=== PATIENT | female | born 1945 | race American Indian/Alaskan Native ===

== ENCOUNTER 2018-07-22 17:39 | Inpatient (IN) | payer MEDICARE ==
[2018-07-22] MEDS ORDERED: ATROVENT IH ONE ×2 (17:42→17:47)
[2018-07-22] MEDS ORDERED: LEVAQUIN 500MG/100ML 500 MG/100 ML BAG IV ONE (17:43)
[2018-07-22] MEDS ORDERED: XOPENEX IH ONE (17:47)
[2018-07-22] MEDS ORDERED: LEVALBUTEROL IH ONE (17:47)
--- NOTE | 2018-07-22 17:48 | Emergency Department Report ---
ED Shortness of Breath HPI - General Stated Complaint: LAURI Time Seen by Provider: 07/22/18 17:41 - History of Present Illness Initial Comments: Patient is 72 years old female with history of COPD and asthma. Patient presented to the ER via EMS in acute respiratory distress. EMS stated that patient initial oxygen saturation was 80% on room air improved to 96% on Venturi mask. Patient received albuterol 7.5 mg, Solu-Medrol 125 mg and magnesium sulfate 2 g by EMS. Upon arrival to the ER patient oxygen saturation is 96% on a Venturi mask with moderate tachypnea and respiratory distress. Patient received Xopenex 2.5 mg, Atrovent 0.5 mg and started on BiPAP. Patient stated that she was treated for pneumonia 2 weeks ago. MD Complaint: shortness of breath, cough Consistency: constant Improves With: oxygen, bronchodilators Known History Of: COPD, asthma Context: recent URI - Related Data Home Medications Medication Instructions Recorded Confirmed Last Taken ALBUTEROL NEB's [Proventil 0.083% 1 vial Q6HR PRN 07/24/18 07/24/18 Unknown NEBS] Allopurinol [Zyloprim] 1 tab PO DAILY 07/24/18 07/24/18 Unknown AtorvaSTATin [Lipitor] 1 tab PO HS 07/24/18 07/24/18 Unknown Breo Ellipta 200-25 Mcg INH 1 mcg INHALATION DAILY 07/24/18 07/24/18 Unknown Folic Acid [Folvite] 1 tab PO DAILY 07/24/18 07/24/18 Unknown Gabapentin [Neurontin] 600 mg PO BID 07/24/18 07/24/18 Unknown ISOSORBIDE MONOnitrate [Imdur ER] 30 mg PO DAILY 07/24/18 07/24/18 Unknown Insulin NPH/Regular [NovoLIN 70/30] 22 units SQ QAM 07/24/18 07/24/18 Unknown Insulin NPH/Regular [NovoLIN 70/30] 30 units SQ HS 07/24/18 07/24/18 Unknown Ipratropium [place] 0.02 inhalation Q6HR PRN 07/24/18 07/24/18 Unknown Lispro Insulin [HumaLOG] 10 unit SQ AC 07/24/18 07/24/18 Unknown Meloxicam [Mobic] 15 mg PO DAILY 07/24/18 07/24/18 Unknown Omeprazole 40 mg PO DAILY 07/24/18 07/24/18 Unknown Torsemide [Demadex] 1 tab PO DAILY 07/24/18 07/24/18 Unknown amLODIPine [Norvasc] 1 tab PO DAILY 07/24/18 07/24/18 Unknown Allergies Allergy/AdvReac Type Severity Reaction Status Date / Time aspirin Allergy Unknown Verified 01/30/13 11:11 Penicillins Allergy Swelling Verified 01/30/13 11:11 ED Review of Systems ROS: Stated complaint: LAURI Other details as noted in HPI Comment: All other systems reviewed and negative Constitutional: denies: chills, fever Respiratory: cough, orthopnea, shortness of breath, SOB with exertion, SOB at rest, wheezing Cardiovascular: denies: chest pain Gastrointestinal: denies: abdominal pain, nausea, vomiting Musculoskeletal: denies: back pain ED Past Medical Hx - Past Medical History Hx Hypertension: Yes Hx Diabetes: Yes Hx GERD: Yes Hx Arthritis: Yes Hx Asthma: Yes Hx COPD: Yes Additional medical history: osteoporosis. high cholesterol - Surgical History Additional Surgical History: cataracts removed. ectopic x 2 - Social History Smoking Status: Former Smoker - Medications Home Medications: Home Medications Medication Instructions Recorded Confirmed Last Taken Type ALBUTEROL NEB's [Proventil 0.083% 1 vial Q6HR PRN 07/24/18 07/24/18 Unknown History NEBS] Allopurinol [Zyloprim] 1 tab PO DAILY 07/24/18 07/24/18 Unknown History AtorvaSTATin [Lipitor] 1 tab PO HS 07/24/18 07/24/18 Unknown History Breo Ellipta 200-25 Mcg INH 1 mcg INHALATION DAILY 07/24/18 07/24/18 Unknown History Folic Acid [Folvite] 1 tab PO DAILY 07/24/18 07/24/18 Unknown History Gabapentin [Neurontin] 600 mg PO BID 07/24/18 07/24/18 Unknown History ISOSORBIDE MONOnitrate [Imdur ER] 30 mg PO DAILY 07/24/18 07/24/18 Unknown History Insulin NPH/Regular [NovoLIN 70/30] 22 units SQ QAM 07/24/18 07/24/18 Unknown History Insulin NPH/Regular [NovoLIN 70/30] 30 units SQ HS 07/24/18 07/24/18 Unknown History Ipratropium [place] 0.02 inhalation Q6HR PRN 07/24/18 07/24/18 Unknown History Lispro Insulin [HumaLOG] 10 unit SQ AC 07/24/18 07/24/18 Unknown History Meloxicam [Mobic] 15 mg PO DAILY 07/24/18 07/24/18 Unknown History Omeprazole 40 mg PO DAILY 07/24/18 07/24/18 Unknown History Torsemide [Demadex] 1 tab PO DAILY 07/24/18 07/24/18 Unknown History amLODIPine [Norvasc] 1 tab PO DAILY 07/24/18 07/24/18 Unknown History ED Physical Exam - General General appearance: alert, in distress - Head Head exam: Present: atraumatic, normocephalic, normal inspection - Eye Eye exam: Present: normal appearance, PERRL - ENT ENT exam: Present: normal exam, normal orophraynx, mucous membranes moist - Neck Neck exam: Present: normal inspection, full ROM. Absent: tenderness, meningismus, lymphadenopathy, thyromegaly - Respiratory Respiratory exam: Present: respiratory distress, wheezes, rales, rhonchi, decreased breath sounds, prolonged expiratory. Absent: stridor, accessory muscle use - Cardiovascular Cardiovascular Exam: Present: regular rate, normal rhythm, normal heart sounds - GI/Abdominal GI/Abdominal exam: Present: soft, normal bowel sounds. Absent: distended, tenderness, guarding, rebound, rigid, organomegaly, mass, bruit, pulsatile mass, hernia - Extremities Exam Extremities exam: Present: normal inspection, full ROM, normal capillary refill - Back Exam Back exam: Present: normal inspection, full ROM. Absent: CVA tenderness (R), CVA tenderness (L), muscle spasm, paraspinal tenderness, vertebral tenderness - Neurological Exam Neurological exam: Present: alert, oriented X3, CN II-XII intact, normal gait, reflexes normal - Skin Skin exam: Present: warm, intact, normal color ED Course Vital Signs 07/22/18 07/22/18 07/22/18 17:40 17:45 17:54 Temperature 97.8 F Pulse Rate 102 H Pulse Rate [ 103 H Bilateral Throughout] Respiratory 25 H Rate Respiratory 34 H Rate [Bilateral Throughout] Blood Pressure 153/70 Blood Pressure [Right] O2 Sat by Pulse 96 96 Oximetry 07/22/18 07/22/18 07/22/18 18:00 18:08 18:16 Temperature Pulse Rate 105 H 107 H 106 H Pulse Rate [ Bilateral Throughout] Respiratory 25 H 36 H 23 Rate Respiratory Rate [Bilateral Throughout] Blood Pressure Blood Pressure 158/77 [Right] O2 Sat by Pulse 99 99 98 Oximetry 07/22/18 07/22/18 07/22/18 18:18 18:30 18:37 Temperature Pulse Rate 105 H 103 H Pulse Rate [ 104 H Bilateral Throughout] Respiratory 34 H 29 H Rate Respiratory 26 H Rate [Bilateral Throughout] Blood Pressure 158/75 Blood Pressure [Right] O2 Sat by Pulse 100 100 Oximetry 07/22/18 07/22/18 07/22/18 18:46 19:00 19:16 Temperature Pulse Rate 101 H 109 H 101 H Pulse Rate [ Bilateral Throughout] Respiratory 35 H 30 H 37 H Rate Respiratory Rate [Bilateral Throughout] Blood Pressure 161/84 163/66 Blood Pressure [Right] O2 Sat by Pulse 100 97 100 Oximetry 07/22/18 07/22/18 07/22/18 19:30 19:46 20:00 Temperature Pulse Rate 100 H 99 H 101 H Pulse Rate [ Bilateral Throughout] Respiratory 32 H 29 H 27 H Rate Respiratory Rate [Bilateral Throughout] Blood Pressure 151/66 151/66 158/70 Blood Pressure [Right] O2 Sat by Pulse 97 98 97 Oximetry 07/22/18 07/22/18 07/22/18 20:16 20:30 20:46 Temperature Pulse Rate 100 H 96 H 91 H Pulse Rate [ Bilateral Throughout] Respiratory 27 H 22 32 H Rate Respiratory Rate [Bilateral Throughout] Blood Pressure 158/70 142/70 142/70 Blood Pressure [Right] O2 Sat by Pulse 97 98 99 Oximetry 07/22/18 07/22/18 07/22/18 21:00 21:06 21:10 Temperature Pulse Rate 91 H 94 H 97 H Pulse Rate [ Bilateral Throughout] Respiratory 19 22 20 Rate Respiratory Rate [Bilateral Throughout] Blood Pressure 152/67 152/67 152/67 Blood Pressure [Right] O2 Sat by Pulse 95 97 100 Oximetry 07/22/18 07/22/18 07/22/18 21:20 21:30 21:40 Temperature Pulse Rate 95 H 93 H 91 H Pulse Rate [ Bilateral Throughout] Respiratory 31 H 23 20 Rate Respiratory Rate [Bilateral Throughout] Blood Pressure 152/67 157/77 157/77 Blood Pressure [Right] O2 Sat by Pulse 100 96 98 Oximetry 07/22/18 22:05 Temperature Pulse Rate Pulse Rate [ 91 H Bilateral Throughout] Respiratory Rate Respiratory 30 H Rate [Bilateral Throughout] Blood Pressure Blood Pressure [Right] O2 Sat by Pulse Oximetry ED Medical Decision Making - Lab Data Result diagrams: 07/23/18 04:23 07/24/18 04:27 - Radiology Data Radiology results: report reviewed - Medical Decision Making Patient is 72 years old female with history of COPD and asthma. Patient presented to the ER via EMS in acute respiratory distress. EMS stated that patient initial oxygen saturation was 80% on room air improved to 96% on Venturi mask. Patient received albuterol 7.5 mg, Solu-Medrol 125 mg and magnesium sulfate 2 g by EMS. Upon arrival to the ER patient oxygen saturation is 96% on a Venturi mask with moderate tachypnea and respiratory distress. Patient received Xopenex 2.5 mg, Atrovent 0.5 mg and started on BiPAP. Patient stated that she was treated for pneumonia 2 weeks ago. Patient stated that she is feeling better. Patient received Levaquin 500 mg. I discussed the patient is Dr. Saunders, he agreed to admit the patient to medical service. Critical Care Time: Yes Critical care time in (mins) excluding proc time.: 30 Critical care attestation.: If time is entered above; I have spent that time in minutes in the direct care of this critically ill patient, excluding procedure time. ED Disposition Clinical Impression: Acute respiratory failure, COPD exacerbation, Pneumonia, Acute exacerbation of CHF (congestive heart failure), Hyperglycemia Disposition: OP ADMIT IP TO THIS HOSP Is pt being admited?: Yes Does the pt Need Aspirin: Yes Condition: Stable
[2018-07-22 18:30] LABS: Hematocrit 31.6 % (30.3-42.9); Hemoglobin 10.3 gm/dl (10.1-14.3); Mean Corpuscular HGB Conc 33 % (30-34); Mean Corpuscular Volume 86 fl (79-97); Platelet Count 249 K/mm3 (140-440); Red Blood Count 3.66 M/mm3 (3.65-5.03); Red Cell Distribution Width 17.8 % (13.2-15.2)
[2018-07-22 18:40] LABS: INR 0.89 (0.87-1.13)
[2018-07-22 18:56] LABS: BUN/Creatinine Ratio 16; Blood Urea Nitrogen 28 mg/dL (7-17); Calcium 8.4 mg/dL (8.4-10.2); Hemolysis Index 46
--- NOTE | 2018-07-22 19:01 | XRay Report ---
PROCEDURE: XR CHEST 1V AP TECHNIQUE: Chest radiograph single view. HISTORY: Dyspnea COMPARISONS: None . FINDINGS/ IMPRESSION: Vasculature appears mildly prominent. Possible mild pulmonary vascular congestion or accentuation b y overlying soft tissues. No infiltrate is seen. No pleural effusion or pneumothorax is seen. The cardiomediastinal silhouette is normal. This document is electronically signed by Brooks Cruz MD., July 22 2018 06:59:39 PM ET
[2018-07-22] MEDS ORDERED: HumuLIN R IV ONE (19:05)
[2018-07-22] MEDS ORDERED: LASIX IV ONE (19:10)
[2018-07-22 19:51] LABS: Eosinophils % (Manual) 0 % (0.0-4.3); Total Cells Counted 100
[2018-07-22 19:54] LABS: Anisocytosis 2+; Hypochromasia 1+; Poikilocytosis 1+
[2018-07-22 19:55] LABS: Large Platelets Few; Platelet Estimate Consistent w Auto
[2018-07-22] MEDS ORDERED: TYLENOL PO PRN (20:27)
[2018-07-22] MEDS ORDERED: IBUPROFEN PO PRN (20:27)
[2018-07-22] MEDS ORDERED: ZOFRAN IV PRN (20:27)
[2018-07-22] MEDS ORDERED: DILAUDID IV PRN (20:27)
[2018-07-22] MEDS ORDERED: SODIUM CHLORIDE FLUSH SYRINGE 10 ML IV PRN (20:27)
[2018-07-22] MEDS ORDERED: PROVENTIL IH PRN (20:30)
[2018-07-22] MEDS ORDERED: NORCO 7.5/325 PO PRN (20:31)
[2018-07-22] MEDS ORDERED: HumaLOG SUB-Q ONE (20:34)
--- NOTE | 2018-07-22 20:40 | History and Physical Report ---
History of Present Illness Date of examination: 07/22/18 Date of admission: 07/22/2018 Chief complaint: Severe shortness of breath for 2 days History of present illness: 72 years old female with history of COPD and asthma presented to the ER via EMS in acute respiratory distress. EMS stated that patient initial oxygen saturation was 80% on room air improved to 96% on Venturi mask. Patient received albuterol 7.5 mg , Solu-Medrol 125 mg and magnesium sulfate 2 g by EMS. Upon arrival to the ER patient oxygen saturation is 96% on a Venturi mask with moderate tachypnea and respiratory distress. Patient received Xopenex 2.5 mg, Atrovent 0.5 mg and started on BiPAP. Patient stated that she was treated for pneumonia 2 weeks ago. Patient was recently discharged after being treated for pneumonia. No fever or chills. No recent travel. Cough productive of mucoid sputum. Past Medical History Hypertension: Yes Diabetes: Yes GERD: Yes Arthritis: Yes Asthma: Yes COPD: Yes Additional medical history: osteoporosis. high cholesterol Surgical History Cataracts removed. Ectopic x 2 Social History Smoking Status: Former Smoker Family history HTN Review of systems ROS: Stated complaint: LAURI Other details as noted in HPI Comment: All other systems reviewed and negative Constitutional: denies: chills, fever Respiratory: cough, orthopnea, shortness of breath, SOB with exertion, SOB at rest, wheezing Cardiovascular: denies: chest pain Gastrointestinal: denies: abdominal pain, nausea, vomiting Musculoskeletal: denies: back pain 14 point review of systems otherwise negative Medications and Allergies Allergies Allergy/AdvReac Type Severity Reaction Status Date / Time aspirin Allergy Unknown Verified 01/30/13 11:11 Penicillins Allergy Swelling Verified 01/30/13 11:11 Home Medications Medication Instructions Recorded Confirmed Last Taken Type HYDROcodone/APAP 7.5-325 [[place] 1 each PO Q6HR PRN #20 tablet 01/30/13 02/03/13 02/03/13 Rx 7.5-325 mg TAB] cephALEXin [Keflex] 500 mg PO TID #21 capsule 01/30/13 02/03/13 02/03/13 Rx Albuterol *Only Ed* [Proventil 2.5 mg IH Q4H PRN 02/03/13 02/03/13 02/03/13 History 0.5%] Albuterol Sulfate [Ventolin HFA] 2 inhalation Q4H PRN 02/03/13 02/03/13 02/03/13 History Fluticasone/Salmeterol [Advair 1 INHALATION BID 02/03/13 02/03/13 02/03/13 History Diskus 250-50 mcg] Gabapentin 1 tab PO BID 02/03/13 02/03/13 02/03/13 History Insulin NPH Hum/Reg Insulin Hm 02/03/13 02/03/13 02/03/13 History [Humulin 70-30 Vial] Lisinopril [Zestril] 40 mg PO QDAY 02/03/13 02/03/13 02/03/13 History Montelukast Sodium 10 mg PO DAILY 02/03/13 02/03/13 02/03/13 History Simvastatin [Zocor TAB] 1 tab PO DAILY 02/03/13 02/03/13 02/03/13 History glipiZIDE [Glucotrol] 10 mg PO BID 02/03/13 02/03/13 02/03/13 History hydroCHLOROthiazide 25 mg PO DAILY 02/03/13 02/03/13 02/03/13 History [Hydrochlorothiazide] traMADol [Ultram 50 MG tab] 1 tab PO Q6H PRN 02/03/13 02/03/13 02/03/13 History Active Meds: Active Medications Acetaminophen (Tylenol) 650 mg PO Q4H PRN PRN Reason: Pain MILD(1-3)/Fever >100.5/SILVESTRE Acetaminophen/Hydrocodone Bitart ([place] 7.5/325) 1 each PO Q6HR PRN PRN Reason: Pain Albuterol (Proventil) 2.5 mg IH Q4HRT PRN PRN Reason: Shortness Of Breath Albuterol/Ipratropium (Duoneb *Not For Prn Use*) 1 ampul IH QIDRT ABDULAZIZ Gabapentin (Neurontin) mg PO BID ABDULAZIZ Glipizide (Glucotrol) 10 mg PO BID ABDULAZIZ Hydrochlorothiazide (Hctz) 25 mg PO DAILY ABDULAZIZ Hydromorphone HCl (Dilaudid) 0.25 mg IV Q3H PRN PRN Reason: Pain, Moderate (4-6) Levofloxacin/Dextrose (Levaquin 750mg/150ml) 750 mg in 150 mls @ 100 mls/hr IV Q24HR ABDULAZIZ; Protocol Ibuprofen (Ibuprofen) 600 mg PO Q6H PRN PRN Reason: Pain, Mild (1-3) Insulin Human Isoph/Insulin Regular (Humulin 70/30) 10 unit SUB-Q BIDDIAB ABDULAZIZ Insulin Human Lispro (Humalog) 0 unit SUB-Q ONCE ONE; Protocol Stop: 07/22/18 20:35 Lisinopril (Zestril) 40 mg PO QDAY ABDULAZIZ Methylprednisolone Sodium Succinate (Solu-Medrol) 125 mg IV Q8HR ABDULAZIZ Miscellaneous Medication (Fluticasone/Salmeterol [Advair Diskus 250-50 Mcg]) 1 inh INHALATION BID ABDULAZIZ Miscellaneous Medication (Montelukast Sodium [Montelukast Sodium]) 10 mg PO DAILY ABDULAZIZ Miscellaneous Medication (Simvastatin) 1 tab PO DAILY ABDULAZIZ Ondansetron HCl (Zofran) 4 mg IV Q8H PRN PRN Reason: Nausea And Vomiting Sodium Chloride (Sodium Chloride Flush Syringe 10 Ml) 10 ml IV BID ABDULAZIZ Sodium Chloride (Sodium Chloride Flush Syringe 10 Ml) 10 ml IV PRN PRN PRN Reason: LINE FLUSH Exam - Physical Exam Narrative exam: Patient on BiPAP and in severe distress - Constitutional Vitals: Temp Pulse Resp BP Pulse Ox 97.8 F 101 H 37 H 163/66 100 07/22/18 17:40 07/22/18 19:16 07/22/18 19:16 07/22/18 19:16 07/22/18 19:16 General appearance: Present: severe distress - EENT Eyes: Present: PERRL ENT: hearing intact, clear oral mucosa - Neck Neck: Present: supple, normal ROM - Respiratory Respiratory effort: normal Respiratory: bilateral: diminished, rhonchi, wheezing - Cardiovascular Heart rate: 98 Rhythm: regular Heart Sounds: Present: S1 & S2. Absent: rub, click - Extremities Extremities: no ischemia, pulses intact Peripheral Pulses: within normal limits - Abdominal General gastrointestinal: Present: soft, non-tender, non-distended, normal bowel sounds Female genitourinary: Present: deferred - Rectal Rectal Exam: deferred - Integumentary Integumentary: Present: clear, warm, dry, erythema - Musculoskeletal Musculoskeletal: gait normal, strength equal bilaterally - Psychiatric Psychiatric: appropriate mood/affect, intact judgment & insight - Neurologic Neurologic: CNII-XII intact, moves all extremities - Allied Health Allied health notes reviewed: nursing, case management Results - Labs CBC & Chem 7: 07/22/18 18:12 07/22/18 18:12 Labs: Laboratory Last Values WBC 19.0 K/mm3 (4.5-11.0) H 07/22/18 18:12 RBC 3.66 M/mm3 (3.65-5.03) 07/22/18 18:12 Hgb 10.3 gm/dl (10.1-14.3) 07/22/18 18:12 Hct 31.6 % (30.3-42.9) 07/22/18 18:12 MCV 86 fl (79-97) 07/22/18 18:12 MCH 28 pg (28-32) 07/22/18 18:12 MCHC 33 % (30-34) 07/22/18 18:12 RDW 17.8 % (13.2-15.2) H 07/22/18 18:12 Plt Count 249 K/mm3 (140-440) 07/22/18 18:12 Add Manual Diff Complete 07/22/18 18:12 Total Counted 100 07/22/18 18:12 Seg Neuts % (Manual) 84.0 % (40.0-70.0) H 07/22/18 18:12 0 % 07/22/18 18:12 11.0 % (13.4-35.0) L 07/22/18 18:12 Reactive Lymphs % (Man) 0 % 07/22/18 18:12 4.0 % (0.0-7.3) 07/22/18 18:12 0 % (0.0-4.3) 07/22/18 18:12 1.0 % (0.0-1.8) 07/22/18 18:12 0 % 07/22/18 18:12 0 % 07/22/18 18:12 0 % 07/22/18 18:12 0 % 07/22/18 18:12 Nucleated RBC % Not Reportable 07/22/18 18:12 Seg Neutrophils # Man 16.0 K/mm3 (1.8-7.7) H 07/22/18 18:12 Band Neutrophils # 0.0 K/mm3 07/22/18 18:12 2.1 K/mm3 (1.2-5.4) 07/22/18 18:12 Abs React Lymphs (Man) 0.0 K/mm3 07/22/18 18:12 0.8 K/mm3 (0.0-0.8) 07/22/18 18:12 0.0 K/mm3 (0.0-0.4) 07/22/18 18:12 0.2 K/mm3 (0.0-0.1) H 07/22/18 18:12 0.0 K/mm3 07/22/18 18:12 0.0 K/mm3 07/22/18 18:12 0.0 K/mm3 07/22/18 18:12 Blast Cells # 0.0 K/mm3 07/22/18 18:12 WBC Morphology Not Reportable 07/22/18 18:12 Hypersegmented Neuts Not Reportable 07/22/18 18:12 Hyposegmented Neuts Not Reportable 07/22/18 18:12 Hypogranular Neuts Not Reportable 07/22/18 18:12 Not Reportable 07/22/18 18:12 Not Reportable 07/22/18 18:12 Not Reportable 07/22/18 18:12 Not Reportable 07/22/18 18:12 Not Reportable 07/22/18 18:12 Not Reportable 07/22/18 18:12 Consistent w auto 07/22/18 18:12 Not Reportable 07/22/18 18:12 Plt Clumps, EDTA Not Reportable 07/22/18 18:12 Few 07/22/18 18:12 Not Reportable 07/22/18 18:12 Not Reportable 07/22/18 18:12 Plt Morphology Comment Not Reportable 07/22/18 18:12 RBC Morphology Not Reportable 07/22/18 18:12 Dimorphic RBCs Not Reportable 07/22/18 18:12 Few 07/22/18 18:12 1+ 07/22/18 18:12 1+ 07/22/18 18:12 2+ 07/22/18 18:12 1+ 07/22/18 18:12 Not Reportable 07/22/18 18:12 Not Reportable 07/22/18 18:12 Not Reportable 07/22/18 18:12 Not Reportable 07/22/18 18:12 Not Reportable 07/22/18 18:12 Not Reportable 07/22/18 18:12 Not Reportable 07/22/18 18:12 Not Reportable 07/22/18 18:12 Not Reportable 07/22/18 18:12 Not Reportable 07/22/18 18:12 Not Reportable 07/22/18 18:12 Not Reportable 07/22/18 18:12 Not Reportable 07/22/18 18:12 Not Reportable 07/22/18 18:12 Acanthocytes (Spur) Not Reportable 07/22/18 18:12 Rouleaux Not Reportable 07/22/18 18:12 Not Reportable 07/22/18 18:12 Not Reportable 07/22/18 18:12 Not Reportable 07/22/18 18:12 Not Reportable 07/22/18 18:12 Hem Pathologist Commnt No 07/22/18 18:12 PT 12.6 Sec. (12.2-14.9) 07/22/18 18:12 INR 0.89 (0.87-1.13) 07/22/18 18:12 APTT 22.0 Sec. (24.2-36.6) L 07/22/18 18:12 POC ABG pH 7.355 (7.35-7.45) 07/22/18 18:22 POC ABG pCO2 34.2 (35-45) L 07/22/18 18:22 POC ABG pO2 100 (80-105) 07/22/18 18:22 POC ABG HCO3 19.1 (22-26 mml/L) 07/22/18 18:22 POC ABG Total CO2 20 (23-27mmol/L) 07/22/18 18:22 POC ABG O2 Sat 98 07/22/18 18:22 POC ABG Base Excess -6 ((-2) - (+3)mmol/L) 07/22/18 18:22 100 % 07/22/18 18:22 Sodium 137 mmol/L (137-145) 07/22/18 18:12 Potassium 4.6 mmol/L (3.6-5.0) 07/22/18 18:12 Chloride 101.2 mmol/L (98-107) 07/22/18 18:12 Carbon Dioxide 17 mmol/L (22-30) L 07/22/18 18:12 23 mmol/L 07/22/18 18:12 BUN 28 mg/dL (7-17) H 07/22/18 18:12 1.8 mg/dL (0.7-1.2) H 07/22/18 18:12 Estimated GFR 34 ml/min 07/22/18 18:12 16 % 07/22/18 18:12 Glucose 409 mg/dL (65-100) H 07/22/18 18:12 POC Glucose 356 (70-105) H 07/22/18 18:19 Lactic Acid 1.50 mmol/L (0.7-2.0) 07/22/18 18:12 Calcium 8.4 mg/dL (8.4-10.2) 07/22/18 18:12 < 0.010 ng/mL (0.00-0.029) 07/22/18 20:08 NT-Pro-B Natriuret Pep 1108 pg/mL (0-900) H 07/22/18 19:18 Short CBC 07/22/18 Range/Units 18:12 WBC 19.0 H (4.5-11.0) K/mm3 Hgb 10.3 (10.1-14.3) gm/dl Hct 31.6 (30.3-42.9) % Plt Count 249 (140-440) K/mm3 [facility] 07/22/18 18:12 Sodium 137 Potassium 4.6 Chloride 101.2 Carbon Dioxide 17 L BUN 28 H Creatinine 1.8 H Glucose 409 H Calcium 8.4 Cardiac Enzymes 07/22/18 07/22/18 Range/Units 18:12 20:08 Troponin T < 0.010 < 0.010 (0.00-0.029) ng/mL - Imaging and Cardiology Imaging and Cardiology: Chest x-ray IMPRESSION: Vasculature appears mildly prominent. Possible mild pulmonary v ascular congestion or accentuation by overlying soft tissues. No infiltrate is seen. No pleural effusion or pneumothorax is seen. The cardiomediastinal silhouette is normal. Assessment and Plan Advance Directives: Yes (full code) VTE prophylaxis?: Chemical Plan of care discussed with patient/family: Yes - Patient Problems (1) Acute respiratory failure with hypoxia Current Visit: Yes Status: Acute Plan to address problem: Patient was hypoxic at the time of arrival into the emergency room Oxygen saturation as low 80s which improved to 90% with 50% Ventimask IV steroids and BiPAP IV antibiotics and nebulizer treatments initiated Intubation if necessary (2) COPD exacerbation Current Visit: Yes Status: Acute Plan to address problem: BiPAP IV antibiotics and IV Solu-Medrol and nebulizer treatments [id number] initiated Pulmicort also initiated (3) Hypertension Current Visit: Yes Status: Chronic Qualifiers: Hypertension type: essential hypertension Qualified Code(s): I10 - Essential (primary) hypertension Plan to address problem: Continue antihypertensives (4) Insulin dependent diabetes mellitus Current Visit: Yes Status: Chronic Plan to address problem: Continue home insulin Accu-Cheks before meals and at bedtime Moderate dose sliding scale protocol Hemoglobin A1c ordered (5) Asthma Current Visit: Yes Status: Acute Qualifiers: Asthma severity: severe Plan to address problem: Continue Singulair to prevent asthma attacks (6) Hyperlipidemia Current Visit: Yes Status: Chronic Qualifiers: Hyperlipidemia type: mixed hyperlipidemia Qualified Code(s): E78.2 - Mixed hyperlipidemia Plan to address problem: Continue statins (7) Peripheral neuropathy Current Visit: Yes Status: Chronic Qualifiers: Peripheral neuropathy type: polyneuropathy, unspecified Qualified Code(s): G62.9 - Polyneuropathy, unspecified Plan to address problem: Continue gabapentin (8) DVT prophylaxis Current Visit: Yes Status: Acute Plan to address problem: Continue Lovenox and GI prophylaxis
[2018-07-22] MEDS ORDERED: MONTELUKAST SODIUM 10 MG PO SCH (20:45)
[2018-07-22] MEDS ORDERED: SIMVASTATIN PO SCH (20:45)
[2018-07-22] MEDS ORDERED: LEVAQUIN 750MG/150ML 750 MG/150 ML BAG IV SCH (21:00)
[2018-07-22] MEDS: SINGULAIR PO SCH (21:20)
[2018-07-22] MEDS: HCTZ PO SCH (21:20)
[2018-07-22] MEDS: ZESTRIL PO SCH (21:20)
[2018-07-22] MEDS ORDERED: PULMICORT IH ONE (21:45)
[2018-07-22] MEDS ORDERED: BROVANA NEBU IH ONE (21:45)
--- NOTE | 2018-07-22 21:49 | Consultation ---
History of Present Illness Consult date: 07/22/18 Reason for consult: dyspnea, cough, asthma, obstructive sleep apnea History of present illness: PULMONARY AND CRITICAL CARE CONSULTATION. DR. ALMARAZ THANK YOU FOR ASKING US TO PARTICIPATE IN THE CARE OF THIS PATIENT. Patient is 72 years old female with history of asthma. Patient presented to the ER via EMS in acute respiratory distress. EMS stated that patient initial oxygen saturation was 80% on room air improved to 96% on Venturi mask. Patient received albuterol 7.5 mg, Solu-Medrol 125 mg and magnesium sulfate 2 g by EMS. Upon arrival to the ER patient oxygen saturation is 96% on a Venturi mask with moderate tachypnea and respiratory distress. Patient received Xopenex 2.5 mg, Atrovent 0.5 mg and started on BiPAP. Patient stated that she was treated for pneumonia 2 weeks ago. Patient main complaint shortness of breath and cough. Coughing up white sputum. Denies hemoptysis. Denies fever and chills. Patient has history of diabetes, Asthma,Hypertension, GE reflux, Sciatica and sleep apnea. Patient uses CPAP at home. Patient denies smoking, alcohol or drug abuse. Smoked few years. Stopped smoking many years ago.Patient worked in [employer] before she retired.Patient and has one daughter. Patient allergic to Pencillin and Aspirin. Patient awake and resting on BIPAP at this time.BIPAP 16/8, rate 20, FIO2 40%. Chest xray reported mild pulmonary vascular congestion. ABGs: PH 7.35, PCO2 34 , PO2 100 , HCO3 10 , O2 saturation 98% on 100% FIO2. Past History Past Medical History: diabetes, GERD, hypertension, other (Asthma.) Social history: denies: smoking, alcohol abuse, prescription drug abuse, IV drug use Medications and Allergies Allergies Allergy/AdvReac Type Severity Reaction Status Date / Time aspirin Allergy Unknown Verified 01/30/13 11:11 Penicillins Allergy Swelling Verified 01/30/13 11:11 Home Medications Medication Instructions Recorded Confirmed Last Taken Type HYDROcodone/APAP 7.5-325 [War 1 each PO Q6HR PRN #20 tablet 01/30/13 02/03/13 02/03/13 Rx 7.5-325 mg TAB] cephALEXin [Keflex] 500 mg PO TID #21 capsule 01/30/13 02/03/13 02/03/13 Rx Albuterol *Only Ed* [Proventil 2.5 mg IH Q4H PRN 02/03/13 02/03/13 02/03/13 History 0.5%] Albuterol Sulfate [Ventolin HFA] 2 inhalation Q4H PRN 02/03/13 02/03/13 02/03/13 History Fluticasone/Salmeterol [Advair 1 INHALATION BID 02/03/13 02/03/13 02/03/13 History Diskus 250-50 mcg] Gabapentin 1 tab PO BID 02/03/13 02/03/13 02/03/13 History Insulin NPH Hum/Reg Insulin Hm 02/03/13 02/03/13 02/03/13 History [Humulin 70-30 Vial] Lisinopril [Zestril] 40 mg PO QDAY 02/03/13 02/03/13 02/03/13 History Montelukast Sodium 10 mg PO DAILY 02/03/13 02/03/13 02/03/13 History Simvastatin [Zocor TAB] 1 tab PO DAILY 02/03/13 02/03/13 02/03/13 History glipiZIDE [Glucotrol] 10 mg PO BID 02/03/13 02/03/13 02/03/13 History hydroCHLOROthiazide 25 mg PO DAILY 02/03/13 02/03/13 02/03/13 History [Hydrochlorothiazide] traMADol [Ultram 50 MG tab] 1 tab PO Q6H PRN 02/03/13 02/03/13 02/03/13 History Active Meds: Active Medications Acetaminophen (Tylenol) 650 mg PO Q4H PRN PRN Reason: Pain MILD(1-3)/Fever >100.5/SILVESTRE Acetaminophen/Hydrocodone Bitart ([place] 7.5/325) 1 each PO Q6HR PRN PRN Reason: Pain Albuterol (Proventil) 2.5 mg IH Q4HRT PRN PRN Reason: Shortness Of Breath Albuterol/Ipratropium (Duoneb *Not For Prn Use*) 1 ampul IH QIDRT ABDULAZIZ Arformoterol Tartrate (Brovana Nebu) 15 mcg IH Q12HRT ABDULAZIZ Budesonide (Pulmicort) 0.5 mg IH Q12HRT ABDULAZIZ Gabapentin (Neurontin) 300 mg PO BID [facility] Glipizide (Glucotrol) 10 mg PO BIDDIAB [facility] Hydrochlorothiazide (Hctz) 25 mg PO DAILY [facility] Last Admin: 07/22/18 21:20 Dose: 25 mg Documented by: Hydromorphone HCl (Dilaudid) 0.25 mg IV Q3H PRN PRN Reason: Pain, Moderate (4-6) Levofloxacin/Dextrose (Levaquin 750mg/150ml) 750 mg in 150 mls @ 100 mls/hr IV Q48H [facility]; Protocol Ibuprofen (Ibuprofen) 600 mg PO Q6H PRN PRN Reason: Pain, Mild (1-3) Insulin Human Isoph/Insulin Regular (Humulin 70/30) 10 unit SUB-Q BIDDIAB [facility] Lisinopril (Zestril) 40 mg PO QDAY [facility] Last Admin: 07/22/18 21:20 Dose: 40 mg Documented by: Methylprednisolone Sodium Succinate (Solu-Medrol) 125 mg IV Q8HR [facility] Montelukast Sodium (Singulair) 10 mg PO QHS [facility] Last Admin: 07/22/18 21:20 Dose: 10 mg Documented by: Ondansetron HCl (Zofran) 4 mg IV Q8H PRN PRN Reason: Nausea And Vomiting Pravastatin Sodium (Pravachol) 80 mg PO QHS [facility] Sodium Chloride (Sodium Chloride Flush Syringe 10 Ml) 10 ml IV BID [facility] Sodium Chloride (Sodium Chloride Flush Syringe 10 Ml) 10 ml IV PRN PRN PRN Reason: LINE FLUSH Review of Systems All systems: negative Physical Examination Vital signs: Vital Signs Temp Pulse Resp BP Pulse Ox 97.8 F 102 H 25 H 153/70 96 07/22/18 17:40 07/22/18 17:40 07/22/18 17:40 07/22/18 17:40 07/22/18 17:40 General appearance: no acute distress, alert, other (Morbidly Obese.) Eyes: non-icteric ENT: oropharynx moist Neck: supple, no JVD Ascultation: Left: wheezes (Occasional wheeze), Bilateral: diminished breath sounds Cardiovascular: regular rate and rhythm Gastrointestinal: normoactive bowel sounds, soft, non-tender Integumentary: normal Extremities: no cyanosis, other (Trace edema.) Musculoskeletal: no deformities Gait: poor gait normal mental status, non-focal exam, pupils equal and round, CN II-XII normal mood appropriate Results - Laboratory Findings CBC and BMP: 07/22/18 18:12 07/22/18 18:12 ABG POC ABG pH 7.355 (7.35-7.45) 07/22/18 18:22 POC ABG pCO2 34.2 (35-45) L 07/22/18 18:22 POC ABG pO2 100 (80-105) 07/22/18 18:22 POC ABG HCO3 19.1 (22-26 mml/L) 07/22/18 18:22 POC ABG Total CO2 20 (23-27mmol/L) 07/22/18 18:22 POC ABG O2 Sat 98 07/22/18 18:22 PT/INR, D-dimer PT 12.6 Sec. (12.2-14.9) 07/22/18 18:12 INR 0.89 (0.87-1.13) 07/22/18 18:12 Abnormal lab findings: Abnormal Labs 07/22/18 07/22/18 07/22/18 18:12 18:12 18:12 WBC 19.0 H RDW 17.8 H Seg Neuts % (Manual) 84.0 H Lymphocytes % (Manual) 11.0 L Seg Neutrophils # Man 16.0 H Basophils # (Manual) 0.2 H APTT 22.0 L POC ABG pCO2 Carbon Dioxide 17 L BUN 28 H Creatinine 1.8 H Glucose 409 H POC Glucose Hemoglobin A1c NT-Pro-B Natriuret Pep 07/22/18 07/22/18 07/22/18 18:19 18:22 19:18 WBC RDW Seg Neuts % (Manual) Lymphocytes % (Manual) Seg Neutrophils # Man Basophils # (Manual) APTT POC ABG pCO2 34.2 L Carbon Dioxide BUN Creatinine Glucose POC Glucose 356 H Hemoglobin A1c NT-Pro-B Natriuret Pep 1108 H 07/22/18 07/22/18 20:40 21:02 WBC RDW Seg Neuts % (Manual) Lymphocytes % (Manual) Seg Neutrophils # Man Basophils # (Manual) APTT POC ABG pCO2 Carbon Dioxide BUN Creatinine Glucose POC Glucose 422 H Hemoglobin A1c 12.1 H NT-Pro-B Natriuret Pep - Diagnostic Findings Chest x-ray: report reviewed (REPORTED MILD PULMONARY VASCULAR CONGESTION.), image reviewed Assessment and Plan Patient is 72 years old female with history of asthma. Patient presented to the ER via EMS in acute respiratory distress. EMS stated that patient initial oxygen saturation was 80% on room air improved to 96% on Venturi mask. Patient received albuterol 7.5 mg, Solu-Medrol 125 mg and magnesium sulfate 2 g by EMS. Upon arrival to the ER patient oxygen saturation is 96% on a Venturi mask with moderate tachypnea and respiratory distress. Patient received Xopenex 2.5 mg, Atrovent 0.5 mg and started on BiPAP. Patient stated that she was treated for pneumonia 2 weeks ago. Patient main complaint shortness of breath and cough. Coughing up white sputum. Denies hemoptysis. Denies fever and chills. Patient has history of diabetes, Asthma,Hypertension, GE reflux, Sciatica and sleep apnea. Patient uses CPAP at home. Patient denies smoking, alcohol or drug abuse. Smoked few years. Stopped smoking many years ago.Patient worked in [employer] before she retired.Patient and has one daughter. Patient allergic to Pencillin and Aspirin. Patient awake and resting on BIPAP at this time.BIPAP 16/8, rate 20, FIO2 40%. Chest xray reported mild pulmonary vascular congestion. ABGs: PH 7.35, PCO2 34 , PO2 100 , HCO3 10 , O2 saturation 98% on 100% FIO2. - Patient Problems (1) Acute exacerbation of CHF (congestive heart failure) Current Visit: Yes Status: Acute Plan to address problem: Management as per primary care and cardiology. (2) Acute respiratory failure with hypoxia Current Visit: Yes Status: Acute Plan to address problem: BIPAP 16/8, rate 20, FIO2 30%. O2 2 litres when she is not on BIPAP. Albuterol/atrovent aerosol treatment q 6 hours. Continue I/V solumedrol. Continue I/V Levaquin. Recommend DVT prophylaxis, S/C Lovenox. GI prophylaxis , Protonix. (3) Asthma exacerbation Current Visit: Yes Status: Acute Plan to address problem: IPAP 16/8, rate 20, FIO2 30%. O2 2 litres when she is not on BIPAP. Albuterol/atrovent aerosol treatment q 6 hours. Continue I/V solumedrol. Continue I/V Levaquin. Recommend DVT prophylaxis, S/C Lovenox. GI prophylaxis , Protonix. (4) Morbid obesity with BMI of 45.0-49.9, adult Current Visit: Yes Status: Acute Plan to address problem: Recommend exercise and weight reduction diet. (5) Sleep apnea in adult Current Visit: Yes Status: Acute Plan to address problem: BIPAP 16/, rate 20, FIO2 30%.
[2018-07-22] MEDS ORDERED: SALMETEROL INHALATION SCH (22:00)
[2018-07-22] MEDS ORDERED: FLUTICASONE INHALATION SCH (22:00)
[2018-07-22] MEDS: PULMICORT IH SCH (22:05)
[2018-07-22] MEDS: BROVANA NEBU IH SCH (22:05)
[2018-07-22] MEDS ORDERED: D50W (25GM) Syringe IV PRN (23:17)
[2018-07-22] MEDS ORDERED: HumuLIN R SUB-Q ONE (23:19)
[2018-07-22] MEDS: PRAVACHOL PO SCH (23:23)
[2018-07-22] MEDS: NEURONTIN PO SCH (23:24)
[2018-07-22] MEDS: SOLU-Medrol IV SCH (23:24)
[2018-07-22] MEDS: SODIUM CHLORIDE FLUSH SYRINGE 10 ML IV SCH (23:25)
[2018-07-22] MEDS: GLUCOTROL PO SCH (23:42)
[2018-07-23 05:09] LABS: Hematocrit 29.8 % (30.3-42.9); Hemoglobin 9.9 gm/dl (10.1-14.3); Mean Corpuscular HGB Conc 33 % (30-34); Mean Corpuscular Volume 85 fl (79-97); Red Blood Count 3.52 M/mm3 (3.65-5.03); Red Cell Distribution Width 17.2 % (13.2-15.2)
[2018-07-23 05:15] LABS: Platelet Count 206 K/mm3 (140-440)
[2018-07-23 05:17] LABS: Calcium 8.6 mg/dL (8.4-10.2)
[2018-07-23 06:05] LABS: Total Cells Counted 100
[2018-07-23 06:06] LABS: Basophils % (Manual) 0 % (0.0-1.8); Eosinophils % (Manual) 0 % (0.0-4.3); Platelet Clumps 1+; RBC Morphology Normal
[2018-07-23] MEDS: SOLU-Medrol IV SCH ×2 (06:23→13:36)
[2018-07-23] MEDS: BROVANA NEBU IH SCH ×2 (07:46→19:08)
[2018-07-23] MEDS: PULMICORT IH SCH ×2 (07:46→19:08)
[2018-07-23] MEDS: DUONEB *Not for PRN Use IH SCH ×4 (07:46→19:08)
[2018-07-23] MEDS: GLUCOTROL PO SCH (09:32)
[2018-07-23] MEDS: NEURONTIN PO SCH ×2 (09:32→22:44)
[2018-07-23] MEDS: HumaLOG SUB-Q SCH ×4 (09:33→22:43)
[2018-07-23] MEDS: SODIUM CHLORIDE FLUSH SYRINGE 10 ML IV SCH ×2 (13:40→22:45)
--- NOTE | 2018-07-23 14:04 | Progress Note ---
Assessment and Plan Patient is 72 years old female with history of asthma. Patient presented to the ER via EMS in acute respiratory distress. EMS stated that patient initial oxygen saturation was 80% on room air improved to 96% on Venturi mask. Patient received albuterol 7.5 mg, Solu-Medrol 125 mg and magnesium sulfate 2 g by EMS. Upon arrival to the ER patient oxygen saturation is 96% on a Venturi mask with moderate tachypnea and respiratory distress. Patient received Xopenex 2.5 mg, Atrovent 0.5 mg and started on BiPAP. Patient stated that she was treated for pneumonia 2 weeks ago. Patient main complaint shortness of breath and cough. Coughing up white sputum. Denies hemoptysis. Denies fever and chills. Patient has history of diabetes, Ast hma,Hypertension, GE reflux, Sciatica and sleep apnea. Patient uses CPAP at home. Patient denies smoking, alcohol or drug abuse. Smoked few years. Stopped smoking many years ago.Patient worked in [employer] before she retired.Patient and has one daughter. Patient allergic to Pencillin and Aspirin. Patient awake and resting on BIPAP at this time.BIPAP 16/8, rate 20, FIO2 40%. Chest xray reported mild pulmonary vascular congestion. ABGs: PH 7.35, PCO2 34 , PO2 100 , HCO3 10 , O2 saturation 98% on 100% FIO2. 07/23/18 atient alert, awake and resting on 2 litres O2.No acute respiratory distress. Patient goes on BIPAP during night time. - Patient Problems (1) Acute exacerbation of CHF (congestive heart failure) Current Visit: Yes Status: Acute Plan to address problem: Management as per primary care and cardiology. (2) Acute respiratory failure with hypoxia Current Visit: Yes Status: Acute Plan to address problem: BIPAP 16/8, rate 20, FIO2 30%. O2 2 litres when she is not on BIPAP. Albuterol/atrovent aerosol treatment q 6 hours. Continue I/V solumedrol. Continue I/V Levaquin. Recommend DVT prophylaxis, S/C Lovenox. GI prophylaxis , Protonix. (3) Asthma exacerbation Current Visit: Yes Status: Acute Plan to address problem: IPAP 16/8, rate 20, FIO2 30%. O2 2 litres when she is not on BIPAP. Albuterol/atrovent aerosol treatment q 6 hours. Continue I/V solumedrol. Continue I/V Levaquin. Recommend DVT prophylaxis, S/C Lovenox. GI prophylaxis , Protonix. (4) Morbid obesity with BMI of 45.0-49.9, adult Current Visit: Yes Status: Acute Plan to address problem: Recommend exercise and weight reduction diet. (5) Sleep apnea in adult Current Visit: Yes Status: Acute Plan to address problem: BIPAP 16/8, rate 20, FIO2 30%. Subjective Date of service: 07/23/18 Interval history: Patient alert, awake and resting on 2 litres O2.No acute respiratory distress. Patient goes on BIPAP during night time. Objective Vital Signs - 12hr 07/23/18 07/23/18 07/23/18 04:02 04:48 07:46 Temperature 98.0 F Pulse Rate 78 92 H 75 Pulse Rate [ 75 Bilateral Throughout] Respiratory 18 42 H Rate Respiratory 25 H Rate [Bilateral Throughout] Blood Pressure 132/58 O2 Sat by Pulse 100 100 Oximetry 07/23/18 07/23/18 07/23/18 07:56 08:02 09:51 Temperature 97.0 F L Pulse Rate 73 Pulse Rate [ 85 Bilateral Throughout] Respiratory 18 20 Rate Respiratory 25 H Rate [Bilateral Throughout] Blood Pressure 109/39 O2 Sat by Pulse 100 Oximetry 07/23/18 07/23/18 11:44 11:54 Temperature Pulse Rate Pulse Rate [ 80 84 Bilateral Throughout] Respiratory Rate Respiratory 22 22 Rate [Bilateral Throughout] Blood Pressure O2 Sat by Pulse Oximetry Constitutional: no acute distress, alert, other (Morbidly Obese.) Eyes: non-icteric ENT: oropharynx moist Neck: supple, no JVD Ascultation: Left: wheezes (Occasional wheeze), Bilateral: diminished breath sounds Cardiovascular: regular rate and rhythm Gastrointestinal: normoactive bowel sounds, soft, non-tender Integumentary: normal Extremities: no cyanosis, other (Trace edema.) Neurologic: normal mental status, non-focal exam, pupils equal and round, CN II- XII normal Psychiatric: mood appropriate CBC and BMP: 07/23/18 04:23 07/23/18 04:23 ABG, PT/INR, D-dimer: ABG POC ABG pH 7.355 (7.35-7.45) 07/22/18 18:22 POC ABG pCO2 34.2 (35-45) L 07/22/18 18:22 POC ABG pO2 100 (80-105) 07/22/18 18:22 POC ABG HCO3 19.1 (22-26 mml/L) 07/22/18 18:22 POC ABG Total CO2 20 (23-27mmol/L) 07/22/18 18:22 POC ABG O2 Sat 98 07/22/18 18:22 PT/INR, D-dimer PT 12.6 Sec. (12.2-14.9) 07/22/18 18:12 INR 0.89 (0.87-1.13) 07/22/18 18:12 Abnormal lab findings: Abnormal Labs 07/22/18 07/22/18 07/22/18 18:12 18:12 18:12 WBC 19.0 H RBC Hgb Hct RDW 17.8 H Seg Neuts % (Manual) 84.0 H Lymphocytes % (Manual) 11.0 L Seg Neutrophils # Man 16.0 H Lymphocytes # (Manual) Basophils # (Manual) 0.2 H APTT 22.0 L POC ABG pCO2 Carbon Dioxide 17 L BUN 28 H Creatinine 1.8 H Glucose 409 H POC Glucose Hemoglobin A1c Alkaline Phosphatase NT-Pro-B Natriuret Pep Albumin 07/22/18 07/22/18 07/22/18 18:19 18:22 19:18 WBC RBC Hgb Hct RDW Seg Neuts % (Manual) Lymphocytes % (Manual) Seg Neutrophils # Man Lymphocytes # (Manual) Basophils # (Manual) APTT POC ABG pCO2 34.2 L Carbon Dioxide BUN Creatinine Glucose POC Glucose 356 H Hemoglobin A1c Alkaline Phosphatase NT-Pro-B Natriuret Pep 1108 H Albumin 07/22/18 07/22/18 07/22/18 20:40 21:02 23:09 WBC RBC Hgb Hct RDW Seg Neuts % (Manual) Lymphocytes % (Manual) Seg Neutrophils # Man Lymphocytes # (Manual) Basophils # (Manual) APTT POC ABG pCO2 Carbon Dioxide BUN Creatinine Glucose POC Glucose 422 H 440 H Hemoglobin A1c 12.1 H Alkaline Phosphatase NT-Pro-B Natriuret Pep Albumin 07/23/18 07/23/18 07/23/18 04:23 04:23 09:08 WBC 14.3 H RBC 3.52 L Hgb 9.9 L Hct 29.8 L RDW 17.2 H Seg Neuts % (Manual) 92.0 H Lymphocytes % (Manual) 5.0 L Seg Neutrophils # Man 13.2 H Lymphocytes # (Manual) 0.7 L Basophils # (Manual) APTT POC ABG pCO2 Carbon Dioxide 19 L BUN 33 H Creatinine 1.9 H Glucose 472 H POC Glucose 463 H Hemoglobin A1c Alkaline Phosphatase 183 H NT-Pro-B Natriuret Pep Albumin 3.0 L
[2018-07-23] MEDS: HCTZ PO SCH (14:36)
[2018-07-23] MEDS: ZESTRIL PO SCH (14:36)
[2018-07-23] MEDS ORDERED: HumaLOG SUB-Q SCH ×2 (16:30→17:49)
--- NOTE | 2018-07-23 16:48 | Progress Note ---
Assessment and Plan Assessment and plan: History of present illness: 72 years old female with history of COPD and asthma presented to the ER via EMS in acute respiratory distress, found to have hypoxia. Past Medical History Hypertension, DM, gerd, OA, asthma, copd, osteoporosis, hld Acute respiratory failure with hypoxia cont oxygen COPD exacerbation cont steroids, nebs, chest PT, pulmonology input appreciated Hypertension Continue antihypertensives uncontrolled Insulin dependent diabetes mellitus, w persistent hyperglycemia optimize insulins Hyperlipidemia Continue statins Peripheral neuropathy Continue gabapentin DVT prophylaxis Continue Lovenox and GI prophylaxis History Interval history: Review of systems Constitutional: No fevers, no malaise, no joint pains CVS: No chest pain, no orthopnea, no dyspnea on exertion, no pedal edema GI: No abdominal pain, no diarrhea, no vomiting, no constipation Respiratory: Complaining of shortness of breath and wheezing Hospitalist Physical - Physical exam Narrative exam: General.: Appears well, no distress, nontoxic HEENT: Moist mucous membranes, extraocular muscles intact, no lymphadenopathy Neck: supple Cardiac: S1-S2 heard Lungs: Poor air entry and wheezing Abdomen: soft , nontender, nondistended, bowel sounds positive Extremities: no edema clubbing or cyanosis Skin: no rash or lesions Neurologic: no gross focal deficits Psych: calm, and cooperative - Constitutional Vitals: Temp Pulse Resp BP Pulse Ox 97.0 F L 89 20 153/76 100 07/23/18 08:02 07/23/18 16:43 07/23/18 16:43 07/23/18 14:36 07/23/18 08:02 General appearance: Present: severe distress Results - Labs CBC & Chem 7: 07/23/18 04:23 07/26/18 16:46 Labs: Laboratory Last Values WBC 14.3 K/mm3 (4.5-11.0) H 07/23/18 04:23 RBC 3.52 M/mm3 (3.65-5.03) L 07/23/18 04:23 Hgb 9.9 gm/dl (10.1-14.3) L 07/23/18 04:23 Hct 29.8 % (30.3-42.9) L 07/23/18 04:23 MCV 85 fl (79-97) 07/23/18 04:23 MCH 28 pg (28-32) 07/23/18 04:23 MCHC 33 % (30-34) 07/23/18 04:23 RDW 17.2 % (13.2-15.2) H 07/23/18 04:23 Plt Count 206 K/mm3 (140-440) 07/23/18 04:23 Add Manual Diff Complete 07/23/18 04:23 Total Counted 100 07/23/18 04:23 Seg Neutrophils % Entry Level Financial Analyst 07/23/18 04:23 Seg Neuts % (Manual) 92.0 % (40.0-70.0) H 07/23/18 04:23 0 % 07/23/18 04:23 5.0 % (13.4-35.0) L 07/23/18 04:23 Reactive Lymphs % (Man) 0 % 07/23/18 04:23 3.0 % (0.0-7.3) 07/23/18 04:23 0 % (0.0-4.3) 07/23/18 04:23 0 % (0.0-1.8) 07/23/18 04:23 0 % 07/23/18 04:23 0 % 07/23/18 04:23 0 % 07/23/18 04:23 0 % 07/23/18 04:23 Nucleated RBC % Not Reportable 07/23/18 04:23 Seg Neutrophils # Man 13.2 K/mm3 (1.8-7.7) H 07/23/18 04:23 Band Neutrophils # 0.0 K/mm3 07/23/18 04:23 0.7 K/mm3 (1.2-5.4) L 07/23/18 04:23 Abs React Lymphs (Man) 0.0 K/mm3 07/23/18 04:23 0.4 K/mm3 (0.0-0.8) 07/23/18 04:23 0.0 K/mm3 (0.0-0.4) 07/23/18 04:23 0.0 K/mm3 (0.0-0.1) 07/23/18 04:23 0.0 K/mm3 07/23/18 04:23 0.0 K/mm3 07/23/18 04:23 0.0 K/mm3 07/23/18 04:23 Blast Cells # 0.0 K/mm3 07/23/18 04:23 WBC Morphology Not Reportable 07/23/18 04:23 Hypersegmented Neuts Not Reportable 07/23/18 04:23 Hyposegmented Neuts Not Reportable 07/23/18 04:23 Hypogranular Neuts Not Reportable 07/23/18 04:23 Not Reportable 07/23/18 04:23 Not Reportable 07/23/18 04:23 Not Reportable 07/23/18 04:23 Not Reportable 07/23/18 04:23 Not Reportable 07/23/18 04:23 Not Reportable 07/23/18 04:23 Not Reportable 07/23/18 04:23 1+ 07/23/18 04:23 Plt Clumps, EDTA Not Reportable 07/23/18 04:23 Not Reportable 07/23/18 04:23 Not Reportable 07/23/18 04:23 Not Reportable 07/23/18 04:23 Plt Morphology Comment Not Reportable 07/23/18 04:23 RBC Morphology Normal 07/23/18 04:23 Dimorphic RBCs Not Reportable 07/23/18 04:23 Not Reportable 07/23/18 04:23 Not Reportable 07/23/18 04:23 Not Reportable 07/23/18 04:23 Not Reportable 07/23/18 04:23 Not Reportable 07/23/18 04:23 Not Reportable 07/23/18 04:23 Not Reportable 07/23/18 04:23 Not Reportable 07/23/18 04:23 Not Reportable 07/23/18 04:23 Not Reportable 07/23/18 04:23 Not Reportable 07/23/18 04:23 Not Reportable 07/23/18 04:23 Not Reportable 07/23/18 04:23 Not Reportable 07/23/18 04:23 Not Reportable 07/23/18 04:23 Not Reportable 07/23/18 04:23 Not Reportable 07/23/18 04:23 Not Reportable 07/23/18 04:23 Not Reportable 07/23/18 04:23 Acanthocytes (Spur) Not Reportable 07/23/18 04:23 Rouleaux Not Reportable 07/23/18 04:23 Not Reportable 07/23/18 04:23 Not Reportable 07/23/18 04:23 Not Reportable 07/23/18 04:23 Not Reportable 07/23/18 04:23 Hem Pathologist Commnt No 07/23/18 04:23 PT 12.6 Sec. (12.2-14.9) 07/22/18 18:12 INR 0.89 (0.87-1.13) 07/22/18 18:12 APTT 22.0 Sec. (24.2-36.6) L 07/22/18 18:12 POC ABG pH 7.355 (7.35-7.45) 07/22/18 18:22 POC ABG pCO2 34.2 (35-45) L 07/22/18 18:22 POC ABG pO2 100 (80-105) 07/22/18 18:22 POC ABG HCO3 19.1 (22-26 mml/L) 07/22/18 18:22 POC ABG Total CO2 20 (23-27mmol/L) 07/22/18 18:22 POC ABG O2 Sat 98 07/22/18 18:22 POC ABG Base Excess -6 ((-2) - (+3)mmol/L) 07/22/18 18:22 100 % 07/22/18 18:22 Sodium 137 mmol/L (137-145) 07/23/18 04:23 Potassium 4.8 mmol/L (3.6-5.0) 07/23/18 04:23 Chloride 102.5 mmol/L (98-107) 07/23/18 04:23 Carbon Dioxide 19 mmol/L (22-30) L 07/23/18 04:23 20 mmol/L 07/23/18 04:23 BUN 33 mg/dL (7-17) H 07/23/18 04:23 1.9 mg/dL (0.7-1.2) H 07/23/18 04:23 Estimated GFR 32 ml/min 07/23/18 04:23 17 % 07/23/18 04:23 Glucose 472 mg/dL (65-100) H 07/23/18 04:23 POC Glucose > 500 (70-105) H 07/23/18 13:40 12.1 % (4-6) H 07/22/18 20:40 Lactic Acid 1.50 mmol/L (0.7-2.0) 07/22/18 18:12 Calcium 8.6 mg/dL (8.4-10.2) 07/23/18 04:23 0.70 mg/dL (0.1-1.2) 07/23/18 04:23 AST 33 units/L (5-40) 07/23/18 04:23 ALT 45 units/L (7-56) 07/23/18 04:23 183 units/L (35-129) H 07/23/18 04:23 < 0.010 ng/mL (0.00-0.029) 07/22/18 20:08 NT-Pro-B Natriuret Pep 1108 pg/mL (0-900) H 07/22/18 19:18 7.0 g/dL (6.3-8.2) 07/23/18 04:23 3.0 g/dL (3.9-5) L 07/23/18 04:23 0.8 % 07/23/18 04:23 Active Medications - Current Medications Current Medications: Generic Name Dose Route Start Last Admin Trade Name Freq PRN Reason Stop Dose Admin Acetaminophen 650 mg 07/22/18 20:27 Tylenol PO Q4H PRN Pain MILD(1-3)/Fever >100.5/SILVESTRE Acetaminophen/Hydrocodone Bitart 1 each 07/22/18 20:31 [place] 7.5/325 PO Q6HR PRN Pain Albuterol 2.5 mg 07/22/18 20:30 Proventil IH Q4HRT PRN Shortness Of Breath Albuterol/Ipratropium 1 ampul 07/23/18 08:00 07/23/18 16:43 Duoneb *Not For Prn Use* IH 1 ampul QIDRT ABDULAZIZ Administration Arformoterol Tartrate 15 mcg 07/22/18 22:00 07/23/18 07:46 Brovana Nebu IH 15 mcg Q12HRT ABDULAZIZ Administration Budesonide 0.5 mg 07/22/18 22:00 07/23/18 07:46 Pulmicort IH 0.5 mg Q12HRT ABDULAZIZ Administration Dextrose 50 ml 07/22/18 23:17 D50w (25gm) Syringe IV PRN PRN Hypoglycemia Gabapentin 300 mg 07/22/18 22:00 07/23/18 09:32 Neurontin PO 300 mg BID ABDULAZIZ Administration Hydrochlorothiazide 25 mg 07/22/18 21:00 07/23/18 14:36 Hctz PO 25 mg DAILY ABDULAZIZ Administration Hydromorphone HCl 0.25 mg 07/22/18 20:27 Dilaudid IV Q3H PRN Pain, Moderate (4-6) Levofloxacin/Dextrose 750 mg in 150 mls @ 100 mls/hr 07/23/18 18:00 Levaquin 750mg/150ml IV Q48H ABDULAZIZ Protocol Ibuprofen 600 mg 07/22/18 20:27 Ibuprofen PO Q6H PRN Pain, Mild (1-3) Insulin Glargine 20 units 07/23/18 22:00 Lantus SUB-Q QHS ABDULAZIZ Insulin Human Isoph/Insulin Regular 10 unit 07/23/18 08:00 07/23/18 09:09 Humulin 70/30 SUB-Q 10 unit BIDDIAB ABDULAZIZ Administration Insulin Human Lispro 0 unit 07/23/18 07:30 07/23/18 13:37 Humalog SUB-Q 10 unit ACHS ABDULAZIZ Administration Protocol Insulin Human Lispro 5 unit 07/23/18 16:30 Humalog SUB-Q AC ABDULAZIZ Lisinopril 40 mg 07/22/18 21:00 07/23/18 14:36 Zestril PO 40 mg QDAY ABDULAZIZ Administration Methylprednisolone Sodium Succinate 125 mg 07/22/18 22:00 07/23/18 13:36 Solu-Medrol IV 125 mg Q8HR ABDULAZIZ Administration Montelukast Sodium 10 mg 07/22/18 21:00 07/22/18 21:20 Singulair PO 10 mg QHS ABDULAZIZ Administration Ondansetron HCl 4 mg 07/22/18 20:27 Zofran IV Q8H PRN Nausea And Vomiting Pravastatin Sodium 80 mg 07/22/18 22:00 07/22/18 23:23 Pravachol PO 80 mg QHS ABDULAZIZ Administration Sodium Chloride 10 ml 07/22/18 22:00 07/23/18 13:40 Sodium Chloride Flush Syringe 10 Ml IV 10 ml BID ABDULAZIZ Administration Sodium Chloride 10 ml 07/22/18 20:27 07/23/18 06:24 Sodium Chloride Flush Syringe 10 Ml IV 10 ml PRN PRN Administration LINE FLUSH
[2018-07-23] MEDS ORDERED: LEVAQUIN 750MG/150ML 750 MG/150 ML BAG IV SCH (18:00)
[2018-07-23] MEDS ORDERED: NACL 0.9% 500 ML 500 ML IV ONE (21:31)
--- NOTE | 2018-07-23 21:37 | Event Note ---
Date: 07/23/18 Called about patient with elevated Blood glucose greater than 500. Ordered Bolus of fluids 500cc. Patient is already on sliding scale at high dose with additional 10 units of insluin and Lantus 30 qhs Started tonight. Will await repeat blood glucose following these administrations to ensure no iatrogenic Hypoglycemia generated and then adjust as needed. Also will decrease solumedrol from 125mg q8hr to 80mg q8 AND Taper as needed. Patient denies any hx of CHF
[2018-07-23] MEDS ORDERED: LANTUS SUB-Q SCH ×3 (22:00)
[2018-07-23] MEDS ORDERED: SOLU-Medrol IV SCH (22:00)
[2018-07-23] MEDS: PRAVACHOL PO SCH (22:44)
[2018-07-23] MEDS: SINGULAIR PO SCH (22:44)
[2018-07-24] MEDS ORDERED: NACL 0.9% 1000 ML 1,000 ML IV ONE (02:16)
[2018-07-24] MEDS ORDERED: HumuLIN R SUB-Q ONE (02:17)
[2018-07-24] MEDS ORDERED: D50W (25GM) Syringe IV PRN ×3 (04:29→17:21)
--- NOTE | 2018-07-24 04:35 | Event Note ---
Date: 07/24/18 Blood glucose unfortunately remains significantly elevated. Will transfer to ICU for closer monitoring and insulin drip- a LITER OF FLUIDS NS has already been ordered is ongoing
[2018-07-24] MEDS ORDERED: D5W/0.45% NACL/KCL 20 MEQ 20 MEQ/1,000 ML BAG IV SCH (05:00)
[2018-07-24 05:08] LABS: Calcium 8.4 mg/dL (8.4-10.2)
[2018-07-24] MEDS: HumuLIN R 100 UNITS in NACL 0.9% 99 ML IV SCH ×2 (05:19→18:13)
[2018-07-24 06:30] LABS: Calcium 8.4 mg/dL (8.4-10.2)
[2018-07-24] MEDS ORDERED: HumaLOG SUB-Q SCH (07:30)
--- NOTE | 2018-07-24 07:48 | Progress Note ---
Assessment and Plan Acute hypoxic respiratory failure, Acute pulmonary edema AE-COPD Morbid obesity Acute renal failure Hyperosmolar hyperglycemic state -NIPPV qhs and prn -Stop IV fluids -Give furosemide and monitor renal function, electrolyte profile and hemodynamics. I do not know her LVEF or pulmonary pressures, but she clinically and radiographically appears to be in positive fluid balance. I suspect her respiratory and renal status will improve with diuretic therapy. -Accuchecks with glycemic control, currently on insulin therapy per protocol -goal blood glucose of 140-180 mg/dL -Quick steroid taper, this appears to be more heart failure than AE-COPD - continue to wean supplemental oxygen to keep O2 sats > 90% - continue bronchodilators with pulmonary hygiene per RT - Maintenance of sleep -wake cycle - Mobility/PT/OT -VTE prophylaxis - Influenza and pneumonia vaccination per protocol -ABG in the morning, follow up CXR in the next 48 hours -Initiate enteral nutrition -Aspiration precautions, keep HOB >40 -Weight loss and life style modifications -Chronic home medications PROGNOSIS: GUARDED CONDITION: CRITICAL CODE STATUS: FULL CODE The high probability of a clinically significant, sudden or life-threatening deterioration of the [respiratory, renal, endocrine] system(s) required my full and direct attention, intervention and personal management. The aggregate critical care time was [35] minutes without overlap. Time includes spent on; [x] Data Review and interpretation [x] Patient assessment and monitoring of vital signs [x] Documentation [x] Medication orders and management Subjective Date of service: 07/24/18 Interval history: Patient is seen today for: Acute hypoxic respiratory failure, hyperosmolar hyperglycemic state, morbid obesity; pulmonary edema with renal insufficiency Seen and examined at bedside. Vitlas, labs, medications, chart and imaging reviewed.; 24hour events reviewed; nursing and respiratory care staff consulted; no adverse overnight events reported to me; She denies any chest pain, no fevers or chills, no abdominal pain, no vomiting She remains acutely short of breath with audible wheezing, on insulin infusion with sub-optimal control Objective Vital Signs - 12hr 07/23/18 07/24/18 07/24/18 21:37 00:51 01:53 Temperature 98.2 F 97.7 F Pulse Rate 92 H 85 84 Pulse Rate [ Apical] Respiratory 24 24 30 H Rate Blood Pressure 120/62 135/65 O2 Sat by Pulse 97 96 100 Oximetry 07/24/18 07/24/18 05:00 05:37 Temperature 98.1 F Pulse Rate Pulse Rate [ 84 Apical] Respiratory 15 Rate Blood Pressure O2 Sat by Pulse 95 Oximetry Constitutional: alert, other (Morbidly Obese, moderate respiratory distress with audible wheeze) Eyes: non-icteric ENT: oropharynx moist, other ([place] 4/4) Neck: supple, no lymphadenopathy, no JVD Effort: other (moderately labored) Ascultation: Bilateral: diminished breath sounds, wheezes (Expiratory wheeze), rales (Basilar) Cardiovascular: regular rate and rhythm, other (S1, S2, no murmurs) Gastrointestinal: normoactive bowel sounds, soft, non-tender Integumentary: normal, other Extremities: no cyanosis, edema Neurologic: normal mental status, non-focal exam, pupils equal and round, CN II- XII normal, motor strength normal and Psychiatric: mood appropriate, affect normal CBC and BMP: 07/23/18 04:23 07/26/18 01:13 ABG, PT/INR, D-dimer: ABG POC ABG pH 7.355 (7.35-7.45) 07/22/18 18:22 POC ABG pCO2 34.2 (35-45) L 07/22/18 18:22 POC ABG pO2 100 (80-105) 07/22/18 18:22 POC ABG HCO3 19.1 (22-26 mml/L) 07/22/18 18:22 POC ABG Total CO2 20 (23-27mmol/L) 07/22/18 18:22 POC ABG O2 Sat 98 07/22/18 18:22 PT/INR, D-dimer PT 12.6 Sec. (12.2-14.9) 07/22/18 18:12 INR 0.89 (0.87-1.13) 07/22/18 18:12 Abnormal lab findings: Abnormal Labs 07/22/18 07/22/18 07/22/18 18:12 18:12 18:12 WBC 19.0 H RBC Hgb Hct RDW 17.8 H Seg Neuts % (Manual) 84.0 H Lymphocytes % (Manual) 11.0 L Seg Neutrophils # Man 16.0 H Lymphocytes # (Manual) Basophils # (Manual) 0.2 H APTT 22.0 L POC ABG pCO2 Sodium Carbon Dioxide 17 L BUN 28 H Creatinine 1.8 H Glucose 409 H POC Glucose Hemoglobin A1c Alkaline Phosphatase NT-Pro-B Natriuret Pep Albumin 07/22/18 07/22/18 07/22/18 18:19 18:22 19:18 WBC RBC Hgb Hct RDW Seg Neuts % (Manual) Lymphocytes % (Manual) Seg Neutrophils # Man Lymphocytes # (Manual) Basophils # (Manual) APTT POC ABG pCO2 34.2 L Sodium Carbon Dioxide BUN Creatinine Glucose POC Glucose 356 H Hemoglobin A1c Alkaline Phosphatase NT-Pro-B Natriuret Pep 1108 H Albumin 07/22/18 07/22/18 07/22/18 20:40 21:02 23:09 WBC RBC Hgb Hct RDW Seg Neuts % (Manual) Lymphocytes % (Manual) Seg Neutrophils # Man Lymphocytes # (Manual) Basophils # (Manual) APTT POC ABG pCO2 Sodium Carbon Dioxide BUN Creatinine Glucose POC Glucose 422 H 440 H Hemoglobin A1c 12.1 H Alkaline Phosphatase NT-Pro-B Natriuret Pep Albumin 07/23/18 07/23/18 07/23/18 04:23 04:23 09:08 WBC 14.3 H RBC 3.52 L Hgb 9.9 L Hct 29.8 L RDW 17.2 H Seg Neuts % (Manual) 92.0 H Lymphocytes % (Manual) 5.0 L Seg Neutrophils # Man 13.2 H Lymphocytes # (Manual) 0.7 L Basophils # (Manual) APTT POC ABG pCO2 Sodium Carbon Dioxide 19 L BUN 33 H Creatinine 1.9 H Glucose 472 H POC Glucose 463 H Hemoglobin A1c Alkaline Phosphatase 183 H NT-Pro-B Natriuret Pep Albumin 3.0 L 07/23/18 07/23/18 07/23/18 13:40 17:08 21:23 WBC RBC Hgb Hct RDW Seg Neuts % (Manual) Lymphocytes % (Manual) Seg Neutrophils # Man Lymphocytes # (Manual) Basophils # (Manual) APTT POC ABG pCO2 Sodium Carbon Dioxide BUN Creatinine Glucose POC Glucose > 500 H > 500 H > 500 H Hemoglobin A1c Alkaline Phosphatase NT-Pro-B Natriuret Pep Albumin 07/24/18 07/24/18 07/24/18 00:59 01:07 04:26 WBC RBC Hgb Hct RDW Seg Neuts % (Manual) Lymphocytes % (Manual) Seg Neutrophils # Man Lymphocytes # (Manual) Basophils # (Manual) APTT POC ABG pCO2 Sodium Carbon Dioxide BUN Creatinine Glucose 761 H* POC Glucose > 500 H > 500 H Hemoglobin A1c Alkaline Phosphatase NT-Pro-B Natriuret Pep Albumin 07/24/18 07/24/18 07/24/18 04:27 05:18 05:28 WBC RBC Hgb Hct RDW Seg Neuts % (Manual) Lymphocytes % (Manual) Seg Neutrophils # Man Lymphocytes # (Manual) Basophils # (Manual) APTT POC ABG pCO2 Sodium 134 L 136 L Carbon Dioxide 20 L 18 L BUN 41 H 41 H Creatinine 1.9 H 1.9 H Glucose 614 H* 548 H* POC Glucose > 500 H Hemoglobin A1c Alkaline Phosphatase NT-Pro-B Natriuret Pep Albumin 07/24/18 06:41 WBC RBC Hgb Hct RDW Seg Neuts % (Manual) Lymphocytes % (Manual) Seg Neutrophils # Man Lymphocytes # (Manual) Basophils # (Manual) APTT POC ABG pCO2 Sodium Carbon Dioxide BUN Creatinine Glucose POC Glucose 409 H Hemoglobin A1c Alkaline Phosphatase NT-Pro-B Natriuret Pep Albumin Chest x-ray: image reviewed (Bilateral alveolar infiltrates more consistent with alveolar edema) Allied health notes reviewed: RT
[2018-07-24] MEDS: HumaLOG SUB-Q SCH (07:55)
[2018-07-24] MEDS ORDERED: NACL 0.9% 1000 ML 1,000 ML IV SCH (08:00)
[2018-07-24 08:03] LABS: Calcium 8.3 mg/dL (8.4-10.2)
[2018-07-24] MEDS ORDERED: LASIX IV ONE (09:00)
--- NOTE | 2018-07-24 09:00 | XRay Report ---
AP CHEST: HISTORY: Respiratory failure, pulmonary edema AP view of the chest demonstrates a normal mediastinal and cardiac contour with clear lungs and normal bony and soft tissue structures. IMPRESSION: Unremarkable AP chest. Mild pulmonary venous congestion has resolved since 07/22/18.
[2018-07-24] MEDS: DUONEB *Not for PRN Use IH SCH ×3 (09:09→16:24)
[2018-07-24] MEDS: BROVANA NEBU IH SCH ×2 (09:10→19:54)
[2018-07-24] MEDS: PULMICORT IH SCH ×2 (09:10→19:55)
[2018-07-24] MEDS: HCTZ PO SCH (09:56)
[2018-07-24] MEDS: ZESTRIL PO SCH (09:58)
[2018-07-24] MEDS: NEURONTIN PO SCH (09:59)
[2018-07-24] MEDS: LANTUS SUB-Q SCH (10:05)
[2018-07-24] MEDS: SODIUM CHLORIDE FLUSH SYRINGE 10 ML IV SCH (10:20)
[2018-07-24 11:11] LABS: Calcium 8.3 mg/dL (8.4-10.2)
[2018-07-24] MEDS ORDERED: HumaLOG SUB-Q ONE ×2 (11:48)
--- NOTE | 2018-07-24 12:11 | Progress Note ---
Assessment and Plan Assessment and plan: History of present illness: 72 years old female with history of COPD and asthma presented to the ER via EMS in acute respiratory distress, found to have hypoxia. Past Medical History Hypertension, DM, gerd, OA, asthma, copd, osteoporosis, hld Acute respiratory failure with hypoxia cont oxygen HHNK exacerbated due to steroids cont insulin drip COPD exacerbation cont steroids, nebs, chest PT, pulmonology input appreciated Hypertension Continue antihypertensives uncontrolled Insulin dependent diabetes mellitus, w persistent hyperglycemia optimize insulins CKD stage 3 avoid nephrotoxins Hyperlipidemia Continue statins Peripheral neuropathy Continue gabapentin DVT prophylaxis Continue Lovenox and GI prophylaxis Critical care time 35 minutes History Interval history: Review of systems Constitutional: No fevers, no malaise, no joint pains CVS: No chest pain, no orthopnea, no dyspnea on exertion, no pedal edema GI: No abdominal pain, no diarrhea, no vomiting, no constipation Respiratory: Complaining of shortness of breath and wheezing Hospitalist Physical - Physical exam Narrative exam: General.: Appears well, no distress, nontoxic HEENT: Moist mucous membranes, extraocular muscles intact, no lymphadenopathy Neck: supple Cardiac: S1-S2 heard Lungs: Poor air entry and wheezing Abdomen: soft , nontender, nondistended, bowel sounds positive Extremities: no edema clubbing or cyanosis Skin: no rash or lesions Neurologic: no gross focal deficits Psych: calm, and cooperative - Constitutional Vitals: Temp Pulse Resp BP Pulse Ox 96.7 F L 82 20 128/63 97 07/24/18 08:00 07/24/18 09:58 07/24/18 09:47 07/24/18 09:58 07/24/18 09:15 General appearance: Present: severe distress Results - Labs CBC & Chem 7: 07/23/18 04:23 07/26/18 16:46 Labs: Laboratory Last Values WBC 14.3 K/mm3 (4.5-11.0) H 07/23/18 04:23 RBC 3.52 M/mm3 (3.65-5.03) L 07/23/18 04:23 Hgb 9.9 gm/dl (10.1-14.3) L 07/23/18 04:23 Hct 29.8 % (30.3-42.9) L 07/23/18 04:23 MCV 85 fl (79-97) 07/23/18 04:23 MCH 28 pg (28-32) 07/23/18 04:23 MCHC 33 % (30-34) 07/23/18 04:23 RDW 17.2 % (13.2-15.2) H 07/23/18 04:23 Plt Count 206 K/mm3 (140-440) 07/23/18 04:23 Add Manual Diff Complete 07/23/18 04:23 Total Counted 100 07/23/18 04:23 Seg Neutrophils % Forest Engineer 07/23/18 04:23 Seg Neuts % (Manual) 92.0 % (40.0-70.0) H 07/23/18 04:23 0 % 07/23/18 04:23 5.0 % (13.4-35.0) L 07/23/18 04:23 Reactive Lymphs % (Man) 0 % 07/23/18 04:23 3.0 % (0.0-7.3) 07/23/18 04:23 0 % (0.0-4.3) 07/23/18 04:23 0 % (0.0-1.8) 07/23/18 04:23 0 % 07/23/18 04:23 0 % 07/23/18 04:23 0 % 07/23/18 04:23 0 % 07/23/18 04:23 Nucleated RBC % Not Reportable 07/23/18 04:23 Seg Neutrophils # Man 13.2 K/mm3 (1.8-7.7) H 07/23/18 04:23 Band Neutrophils # 0.0 K/mm3 07/23/18 04:23 0.7 K/mm3 (1.2-5.4) L 07/23/18 04:23 Abs React Lymphs (Man) 0.0 K/mm3 07/23/18 04:23 0.4 K/mm3 (0.0-0.8) 07/23/18 04:23 0.0 K/mm3 (0.0-0.4) 07/23/18 04:23 0.0 K/mm3 (0.0-0.1) 07/23/18 04:23 0.0 K/mm3 07/23/18 04:23 0.0 K/mm3 07/23/18 04:23 0.0 K/mm3 07/23/18 04:23 Blast Cells # 0.0 K/mm3 07/23/18 04:23 WBC Morphology Not Reportable 07/23/18 04:23 Hypersegmented Neuts Not Reportable 07/23/18 04:23 Hyposegmented Neuts Not Reportable 07/23/18 04:23 Hypogranular Neuts Not Reportable 07/23/18 04:23 Not Reportable 07/23/18 04:23 Not Reportable 07/23/18 04:23 Not Reportable 07/23/18 04:23 Not Reportable 07/23/18 04:23 Not Reportable 07/23/18 04:23 Not Reportable 07/23/18 04:23 Not Reportable 07/23/18 04:23 1+ 07/23/18 04:23 Plt Clumps, EDTA Not Reportable 07/23/18 04:23 Not Reportable 07/23/18 04:23 Not Reportable 07/23/18 04:23 Not Reportable 07/23/18 04:23 Plt Morphology Comment Not Reportable 07/23/18 04:23 RBC Morphology Normal 07/23/18 04:23 Dimorphic RBCs Not Reportable 07/23/18 04:23 Not Reportable 07/23/18 04:23 Not Reportable 07/23/18 04:23 Not Reportable 07/23/18 04:23 Not Reportable 07/23/18 04:23 Not Reportable 07/23/18 04:23 Not Reportable 07/23/18 04:23 Not Reportable 07/23/18 04:23 Not Reportable 07/23/18 04:23 Not Reportable 07/23/18 04:23 Not Reportable 07/23/18 04:23 Not Reportable 07/23/18 04:23 Not Reportable 07/23/18 04:23 Not Reportable 07/23/18 04:23 Not Reportable 07/23/18 04:23 Not Reportable 07/23/18 04:23 Not Reportable 07/23/18 04:23 Not Reportable 07/23/18 04:23 Not Reportable 07/23/18 04:23 Not Reportable 07/23/18 04:23 Acanthocytes (Spur) Not Reportable 07/23/18 04:23 Rouleaux Not Reportable 07/23/18 04:23 Not Reportable 07/23/18 04:23 Not Reportable 07/23/18 04:23 Not Reportable 07/23/18 04:23 Not Reportable 07/23/18 04:23 Hem Pathologist Commnt No 07/23/18 04:23 PT 12.6 Sec. (12.2-14.9) 07/22/18 18:12 INR 0.89 (0.87-1.13) 07/22/18 18:12 APTT 22.0 Sec. (24.2-36.6) L 07/22/18 18:12 POC ABG pH 7.355 (7.35-7.45) 07/22/18 18:22 POC ABG pCO2 34.2 (35-45) L 07/22/18 18:22 POC ABG pO2 100 (80-105) 07/22/18 18:22 POC ABG HCO3 19.1 (22-26 mml/L) 07/22/18 18:22 POC ABG Total CO2 20 (23-27mmol/L) 07/22/18 18:22 POC ABG O2 Sat 98 07/22/18 18:22 POC ABG Base Excess -6 ((-2) - (+3)mmol/L) 07/22/18 18:22 100 % 07/22/18 18:22 Sodium 140 mmol/L (137-145) 07/24/18 10:26 Potassium 3.9 mmol/L (3.6-5.0) 07/24/18 10:26 Chloride 102.6 mmol/L (98-107) 07/24/18 10:26 Carbon Dioxide 20 mmol/L (22-30) L 07/24/18 10:26 21 mmol/L 07/24/18 10:26 BUN 43 mg/dL (7-17) H 07/24/18 10:26 1.9 mg/dL (0.7-1.2) H 07/24/18 10:26 Estimated GFR 32 ml/min 07/24/18 10:26 23 % 07/24/18 10:26 Glucose 199 mg/dL (65-100) H 07/24/18 10:26 POC Glucose 268 (70-105) H 07/24/18 11:36 12.1 % (4-6) H 07/22/18 20:40 Lactic Acid 1.50 mmol/L (0.7-2.0) 07/22/18 18:12 Calcium 8.3 mg/dL (8.4-10.2) L 07/24/18 10:26 Phosphorus 3.10 mg/dL (2.5-4.5) 07/24/18 05:28 Magnesium 2.30 mg/dL (1.7-2.3) 07/24/18 05:28 0.70 mg/dL (0.1-1.2) 07/23/18 04:23 AST 33 units/L (5-40) 07/23/18 04:23 ALT 45 units/L (7-56) 07/23/18 04:23 183 units/L (35-129) H 07/23/18 04:23 < 0.010 ng/mL (0.00-0.029) 07/22/18 20:08 NT-Pro-B Natriuret Pep 1108 pg/mL (0-900) H 07/22/18 19:18 7.0 g/dL (6.3-8.2) 07/23/18 04:23 3.0 g/dL (3.9-5) L 07/23/18 04:23 0.8 % 07/23/18 04:23 Active Medications - Current Medications Current Medications: Generic Name Dose Route Start Last Admin Trade Name Freq PRN Reason Stop Dose Admin Acetaminophen 650 mg 07/22/18 20:27 Tylenol PO Q4H PRN Pain MILD(1-3)/Fever >100.5/SILVESTRE Albuterol 2.5 mg 07/22/18 20:30 Proventil IH Q4HRT PRN Shortness Of Breath Albuterol/Ipratropium 1 ampul 07/23/18 08:00 07/24/18 09:09 Duoneb *Not For Prn Use* IH 1 ampul QIDRT ABDULAZIZ Administration Arformoterol Tartrate 15 mcg 07/22/18 22:00 07/24/18 09:10 Brovana Nebu IH 15 mcg Q12HRT ABDULAZIZ Administration Budesonide 0.5 mg 07/22/18 22:00 07/24/18 09:10 Pulmicort IH 0.5 mg Q12HRT ABDULAZIZ Administration Dextrose 50 ml 07/24/18 06:15 D50w (25gm) Syringe IV PRN PRN Hypoglycemia Gabapentin 300 mg 07/22/18 22:00 07/24/18 09:59 Neurontin PO 300 mg BID ABDULAZIZ Administration Heparin Sodium (Porcine) 5,000 unit 07/24/18 14:00 Heparin SUB-Q Q8HR ABDULAZIZ Hydrochlorothiazide 25 mg 07/22/18 21:00 07/24/18 09:56 Hctz PO Not Given DAILY [facility] Hydromorphone HCl 0.25 mg 07/22/18 20:27 Dilaudid IV Q3H PRN Pain, Moderate (4-6) Levofloxacin/Dextrose 750 mg in 150 mls @ 100 mls/hr 07/23/18 18:00 07/23/18 17:03 Levaquin 750mg/150ml IV 100 mls/hr Q48H ABDULAZIZ Administration Protocol Insulin Glargine 30 units 07/24/18 09:00 07/24/18 10:05 Lantus SUB-Q 30 units QDDIAB [facility] Administration Insulin Human Lispro 15 unit 07/24/18 07:30 Humalog SUB-Q AC [facility] Lisinopril 40 mg 07/22/18 21:00 07/24/18 09:58 Zestril PO 40 mg QDAY ABDULAZIZ Administration Montelukast Sodium 10 mg 07/22/18 21:00 07/23/18 22:44 Singulair PO 10 mg QHS ABDULAZIZ Administration Ondansetron HCl 4 mg 07/22/18 20:27 Zofran IV Q8H PRN Nausea And Vomiting Pravastatin Sodium 80 mg 07/22/18 22:00 07/23/18 22:44 Pravachol PO 80 mg QHS ABDULAZIZ Administration Sodium Chloride 10 ml 07/22/18 22:00 07/23/18 22:45 Sodium Chloride Flush Syringe 10 Ml IV 10 ml BID ABDULAZIZ Administration Sodium Chloride 10 ml 07/22/18 20:27 07/23/18 06:24 Sodium Chloride Flush Syringe 10 Ml IV 10 ml PRN PRN Administration LINE FLUSH
[2018-07-24 14:10] LABS: Calcium 8.1 mg/dL (8.4-10.2)
[2018-07-24] MEDS: SOLU-Medrol IV SCH (15:47)
[2018-07-24] MEDS: HEPARIN SUB-Q SCH (15:47)
[2018-07-24] MEDS ORDERED: HumuLIN R 100 UNITS in NACL 0.9% 99 ML IV SCH (18:00)
[2018-07-25] MEDS: DUONEB *Not for PRN Use IH SCH ×5 (01:02→19:17)
[2018-07-25 03:09] LABS: Calcium 8.4 mg/dL (8.4-10.2)
[2018-07-25 04:23] LABS: Calcium 8.6 mg/dL (8.4-10.2)
[2018-07-25] MEDS: HEPARIN SUB-Q SCH ×4 (05:52→21:31)
[2018-07-25 05:53] LABS: Calcium 8.2 mg/dL (8.4-10.2)
[2018-07-25] MEDS: SOLU-Medrol IV SCH (05:53)
[2018-07-25] MEDS ORDERED: HumaLOG SUB-Q SCH (06:00)
[2018-07-25] MEDS: BROVANA NEBU IH SCH ×2 (07:06→19:20)
[2018-07-25] MEDS: PULMICORT IH SCH ×2 (07:06→19:17)
[2018-07-25] MEDS: LANTUS SUB-Q SCH (09:29)
[2018-07-25] MEDS: ZESTRIL PO SCH (09:31)
[2018-07-25] MEDS: HCTZ PO SCH (09:36)
[2018-07-25] MEDS: NEURONTIN PO SCH ×2 (09:37→21:31)
[2018-07-25] MEDS: SODIUM CHLORIDE FLUSH SYRINGE 10 ML IV SCH ×2 (09:38→21:35)
[2018-07-25 10:39] LABS: Calcium 8.1 mg/dL (8.4-10.2)
[2018-07-25] MEDS ORDERED: LASIX IV ONE (12:00)
[2018-07-25] MEDS: HumaLOG SUB-Q SCH ×3 (12:13→12:15)
--- NOTE | 2018-07-25 13:18 | Progress Note ---
Assessment and Plan Assessment and plan: History of present illness: 72 years old female with history of COPD and asthma presented to the ER via EMS in acute respiratory distress, found to have hypoxia. Past Medical History Hypertension, DM, gerd, OA, asthma, copd, osteoporosis, hld Acute respiratory failure with hypoxia cont oxygen HHNK exacerbated due to steroids cont insulin drip COPD exacerbation cont steroids, nebs, chest PT, pulmonology input appreciated Hypertension Continue antihypertensives uncontrolled Insulin dependent diabetes mellitus, w persistent hyperglycemia optimize insulins CKD stage 3 avoid nephrotoxins Hyperlipidemia Continue statins Peripheral neuropathy Continue gabapentin DVT prophylaxis Continue Lovenox and GI prophylaxis Critical care time 35 minutes History Interval history: Review of systems Constitutional: No fevers, no malaise, no joint pains CVS: No chest pain, no orthopnea, no dyspnea on exertion, no pedal edema GI: No abdominal pain, no diarrhea, no vomiting, no constipation Respiratory: Complaining of shortness of breath and wheezing Hospitalist Physical - Physical exam Narrative exam: General.: Appears well, no distress, nontoxic HEENT: Moist mucous membranes, extraocular muscles intact, no lymphadenopathy Neck: supple Cardiac: S1-S2 heard Lungs: Poor air entry and wheezing Abdomen: soft , nontender, nondistended, bowel sounds positive Extremities: no edema clubbing or cyanosis Skin: no rash or lesions Neurologic: no gross focal deficits Psych: calm, and cooperative - Constitutional Vitals: Temp Pulse Resp BP Pulse Ox 97.4 F L 70 14 135/50 99 07/25/18 12:00 07/25/18 11:43 07/25/18 11:43 07/25/18 07:01 07/25/18 10:00 General appearance: Present: severe distress Results - Labs CBC & Chem 7: 07/23/18 04:23 07/26/18 16:46 Labs: Laboratory Last Values WBC 14.3 K/mm3 (4.5-11.0) H 07/23/18 04:23 RBC 3.52 M/mm3 (3.65-5.03) L 07/23/18 04:23 Hgb 9.9 gm/dl (10.1-14.3) L 07/23/18 04:23 Hct 29.8 % (30.3-42.9) L 07/23/18 04:23 MCV 85 fl (79-97) 07/23/18 04:23 MCH 28 pg (28-32) 07/23/18 04:23 MCHC 33 % (30-34) 07/23/18 04:23 RDW 17.2 % (13.2-15.2) H 07/23/18 04:23 Plt Count 206 K/mm3 (140-440) 07/23/18 04:23 Add Manual Diff Complete 07/23/18 04:23 Total Counted 100 07/23/18 04:23 Seg Neutrophils % Improvement Coordinator 07/23/18 04:23 Seg Neuts % (Manual) 92.0 % (40.0-70.0) H 07/23/18 04:23 0 % 07/23/18 04:23 5.0 % (13.4-35.0) L 07/23/18 04:23 Reactive Lymphs % (Man) 0 % 07/23/18 04:23 3.0 % (0.0-7.3) 07/23/18 04:23 0 % (0.0-4.3) 07/23/18 04:23 0 % (0.0-1.8) 07/23/18 04:23 0 % 07/23/18 04:23 0 % 07/23/18 04:23 0 % 07/23/18 04:23 0 % 07/23/18 04:23 Nucleated RBC % Not Reportable 07/23/18 04:23 Seg Neutrophils # Man 13.2 K/mm3 (1.8-7.7) H 07/23/18 04:23 Band Neutrophils # 0.0 K/mm3 07/23/18 04:23 0.7 K/mm3 (1.2-5.4) L 07/23/18 04:23 Abs React Lymphs (Man) 0.0 K/mm3 07/23/18 04:23 0.4 K/mm3 (0.0-0.8) 07/23/18 04:23 0.0 K/mm3 (0.0-0.4) 07/23/18 04:23 0.0 K/mm3 (0.0-0.1) 07/23/18 04:23 0.0 K/mm3 07/23/18 04:23 0.0 K/mm3 07/23/18 04:23 0.0 K/mm3 07/23/18 04:23 Blast Cells # 0.0 K/mm3 07/23/18 04:23 WBC Morphology Not Reportable 07/23/18 04:23 Hypersegmented Neuts Not Reportable 07/23/18 04:23 Hyposegmented Neuts Not Reportable 07/23/18 04:23 Hypogranular Neuts Not Reportable 07/23/18 04:23 Not Reportable 07/23/18 04:23 Not Reportable 07/23/18 04:23 Not Reportable 07/23/18 04:23 Not Reportable 07/23/18 04:23 Not Reportable 07/23/18 04:23 Not Reportable 07/23/18 04:23 Not Reportable 07/23/18 04:23 1+ 07/23/18 04:23 Plt Clumps, EDTA Not Reportable 07/23/18 04:23 Not Reportable 07/23/18 04:23 Not Reportable 07/23/18 04:23 Not Reportable 07/23/18 04:23 Plt Morphology Comment Not Reportable 07/23/18 04:23 RBC Morphology Normal 07/23/18 04:23 Dimorphic RBCs Not Reportable 07/23/18 04:23 Not Reportable 07/23/18 04:23 Not Reportable 07/23/18 04:23 Not Reportable 07/23/18 04:23 Not Reportable 07/23/18 04:23 Not Reportable 07/23/18 04:23 Not Reportable 07/23/18 04:23 Not Reportable 07/23/18 04:23 Not Reportable 07/23/18 04:23 Not Reportable 07/23/18 04:23 Not Reportable 07/23/18 04:23 Not Reportable 07/23/18 04:23 Not Reportable 07/23/18 04:23 Not Reportable 07/23/18 04:23 Not Reportable 07/23/18 04:23 Not Reportable 07/23/18 04:23 Not Reportable 07/23/18 04:23 Not Reportable 07/23/18 04:23 Not Reportable 07/23/18 04:23 Not Reportable 07/23/18 04:23 Acanthocytes (Spur) Not Reportable 07/23/18 04:23 Rouleaux Not Reportable 07/23/18 04:23 Not Reportable 07/23/18 04:23 Not Reportable 07/23/18 04:23 Not Reportable 07/23/18 04:23 Not Reportable 07/23/18 04:23 Hem Pathologist Commnt No 07/23/18 04:23 PT 12.6 Sec. (12.2-14.9) 07/22/18 18:12 INR 0.89 (0.87-1.13) 07/22/18 18:12 APTT 22.0 Sec. (24.2-36.6) L 07/22/18 18:12 POC ABG pH 7.355 (7.35-7.45) 07/22/18 18:22 POC ABG pCO2 34.2 (35-45) L 07/22/18 18:22 POC ABG pO2 100 (80-105) 07/22/18 18:22 POC ABG HCO3 19.1 (22-26 mml/L) 07/22/18 18:22 POC ABG Total CO2 20 (23-27mmol/L) 07/22/18 18:22 POC ABG O2 Sat 98 07/22/18 18:22 POC ABG Base Excess -6 ((-2) - (+3)mmol/L) 07/22/18 18:22 100 % 07/22/18 18:22 Sodium 142 mmol/L (137-145) 07/25/18 09:38 Potassium 4.3 mmol/L (3.6-5.0) 07/25/18 09:38 Chloride 102.8 mmol/L (98-107) 07/25/18 09:38 Carbon Dioxide 20 mmol/L (22-30) L 07/25/18 09:38 24 mmol/L 07/25/18 09:38 BUN 50 mg/dL (7-17) H 07/25/18 09:38 1.8 mg/dL (0.7-1.2) H 07/25/18 09:38 Estimated GFR 34 ml/min 07/25/18 09:38 28 % 07/25/18 09:38 Glucose 266 mg/dL (65-100) H 07/25/18 09:38 POC Glucose 225 (70-105) H 07/25/18 07:53 12.1 % (4-6) H 07/22/18 20:40 Lactic Acid 1.50 mmol/L (0.7-2.0) 07/22/18 18:12 Calcium 8.1 mg/dL (8.4-10.2) L 07/25/18 09:38 Phosphorus 3.10 mg/dL (2.5-4.5) 07/24/18 05:28 Magnesium 2.30 mg/dL (1.7-2.3) 07/24/18 05:28 0.70 mg/dL (0.1-1.2) 07/23/18 04:23 AST 33 units/L (5-40) 07/23/18 04:23 ALT 45 units/L (7-56) 07/23/18 04:23 183 units/L (35-129) H 07/23/18 04:23 < 0.010 ng/mL (0.00-0.029) 07/22/18 20:08 NT-Pro-B Natriuret Pep 1108 pg/mL (0-900) H 07/22/18 19:18 7.0 g/dL (6.3-8.2) 07/23/18 04:23 3.0 g/dL (3.9-5) L 07/23/18 04:23 0.8 % 07/23/18 04:23 Active Medications - Current Medications Current Medications: Generic Name Dose Route Start Last Admin Trade Name Freq PRN Reason Stop Dose Admin Acetaminophen 650 mg 07/22/18 20:27 Tylenol PO Q4H PRN Pain MILD(1-3)/Fever >100.5/SILVESTRE Albuterol 2.5 mg 07/22/18 20:30 Proventil IH Q4HRT PRN Shortness Of Breath Albuterol/Ipratropium 1 ampul 07/23/18 08:00 07/25/18 11:41 Duoneb *Not For Prn Use* IH 1 ampul QIDRT ABDULAZIZ Administration Arformoterol Tartrate 15 mcg 07/22/18 22:00 07/25/18 07:06 Brovana Nebu IH 15 mcg Q12HRT ABDULAZIZ Administration Budesonide 0.5 mg 07/22/18 22:00 07/25/18 07:06 Pulmicort IH 0.5 mg Q12HRT ABDULAZIZ Administration Dextrose 0 ml 07/24/18 17:21 D50w (25gm) Syringe IV PRN PRN Hypoglycemia Gabapentin 300 mg 07/22/18 22:00 07/25/18 09:37 Neurontin PO 300 mg BID ABDULAZIZ Administration Heparin Sodium (Porcine) 5,000 unit 07/24/18 14:00 07/25/18 05:52 Heparin SUB-Q 5,000 unit Q8HR ABDULAZIZ Administration Hydrochlorothiazide 25 mg 07/22/18 21:00 07/25/18 09:36 Hctz PO 25 mg DAILY ABDULAZIZ Administration Hydromorphone HCl 0.25 mg 07/22/18 20:27 Dilaudid IV Q3H PRN Pain, Moderate (4-6) Insulin Glargine 30 units 07/24/18 09:00 07/25/18 09:29 Lantus SUB-Q 30 units QDDIAB ABDULAZIZ Administration Insulin Human Lispro 15 unit 07/24/18 07:30 07/25/18 12:15 Humalog SUB-Q 15 unit AC ABDULAZIZ Administration Insulin Human Lispro 0 unit 07/25/18 11:30 07/25/18 12:14 Humalog SUB-Q 8 unit ACHS ABDULAZIZ Administration Protocol Lisinopril 40 mg 07/22/18 21:00 07/25/18 09:31 Zestril PO 40 mg QDAY ABDULAZIZ Administration Montelukast Sodium 10 mg 07/22/18 21:00 07/23/18 22:44 Singulair PO 10 mg QHS ABDULAZIZ Administration Ondansetron HCl 4 mg 07/22/18 20:27 Zofran IV Q8H PRN Nausea And Vomiting Pravastatin Sodium 80 mg 07/22/18 22:00 07/23/18 22:44 Pravachol PO 80 mg QHS ABDULAZIZ Administration Sodium Chloride 10 ml 07/22/18 22:00 07/25/18 09:38 Sodium Chloride Flush Syringe 10 Ml IV 10 ml BID ABDULAZIZ Administration Sodium Chloride 10 ml 07/22/18 20:27 07/23/18 06:24 Sodium Chloride Flush Syringe 10 Ml IV 10 ml PRN PRN Administration LINE FLUSH
[2018-07-25] MEDS ORDERED: D50W (25GM) Syringe IV PRN (17:28)
[2018-07-25] MEDS ORDERED: D5W/0.45% NACL/KCL 20 MEQ 20 MEQ/1,000 ML BAG IV SCH (18:00)
[2018-07-25] MEDS ORDERED: HumuLIN R 100 UNITS in NACL 0.9% 99 ML IV SCH (18:00)
[2018-07-25 18:45] LABS: Calcium 8.4 mg/dL (8.4-10.2)
[2018-07-25 19:40] LABS: Calcium 8.1 mg/dL (8.4-10.2)
[2018-07-25] MEDS ORDERED: NACL 0.9% 1000 ML 1,000 ML IV SCH (21:00)
[2018-07-25] MEDS: PRAVACHOL PO SCH ×2 (21:29→21:35)
[2018-07-25] MEDS: SINGULAIR PO SCH (21:34)
[2018-07-26 00:23] LABS: Calcium 8.7 mg/dL (8.4-10.2)
[2018-07-26] MEDS: HumaLOG SUB-Q SCH ×8 (00:46→22:39)
[2018-07-26 02:55] LABS: Calcium 8.4 mg/dL (8.4-10.2)
[2018-07-26] MEDS: HEPARIN SUB-Q SCH ×3 (05:30→22:38)
--- NOTE | 2018-07-26 07:30 | Progress Note ---
Assessment and Plan Acute hypoxic respiratory failure, Acute pulmonary edema AE-COPD Morbid obesity Acute renal failure Hyperosmolar hyperglycemic state -NIPPV qhs and prn -Give another dose of furosemide and continue to monitor renal function, electrolyte profile and hemodynamics. -Accuchecks with glycemic control, currently on insulin therapy per protocol -goal blood glucose of 140-180 mg/dL -Quick steroid taper, this appears to be more heart failure than AE-COPD With poor glycemic control, discontinue systemic steroids and used nebulized corticosteroids - continue to wean supplemental oxygen to keep O2 sats > 90% - continue bronchodilators with pulmonary hygiene per RT - Maintenance of sleep -wake cycle - Mobility/PT/OT -VTE prophylaxis - Influenza and pneumonia vaccination per protocol -Follow up CXR in the next 24 hours -Aspiration precautions, keep HOB >40 -Weight loss and life style modifications -Chronic home medications PROGNOSIS: GUARDED CONDITION: CRITICAL CODE STATUS: FULL CODE The high probability of a clinically significant, sudden or life-threatening deterioration of the [respiratory, renal, endocrine] system(s) required my full and direct attention, intervention and personal management. The aggregate critical care time was [35] minutes without overlap. Time includes spent on; [x] Data Review and interpretation [x] Patient assessment and monitoring of vital signs [x] Documentation [x] Medication orders and management Subjective Date of service: 07/25/18 Interval history: Patient is seen today for: Acute hypoxic respiratory failure, hyperosmolar hyperglycemic state, morbid obesity; pulmonary edema with renal insufficiency Seen and examined at bedside. Vitals, labs, medications, chart and imaging reviewed.; 24hour events reviewed; nursing and respiratory care staff consulted; no adverse overnight events reported to me; She denies any chest pain, no fevers or chills, no abdominal pain, no vomiting She feels much better, breathing better, currently on 3L NC, sitting up in a chair out of bed Objective Vital Signs - 12hr 07/25/18 07/25/18 07/25/18 19:39 20:00 21:00 Temperature 98.7 F Pulse Rate 96 H Pulse Rate [ 89 Bilateral Throughout] Pulse Rate [ 78 Left Dorsalis Pedis] Pulse Rate [ 78 Right Dorsalis Pedis] Respiratory 16 Rate Respiratory 20 Rate [Bilateral Throughout] Blood Pressure 149/62 O2 Sat by Pulse 98 Oximetry 07/25/18 07/25/18 07/25/18 21:01 22:01 23:01 Temperature Pulse Rate 91 H 85 80 Pulse Rate [ Bilateral Throughout] Pulse Rate [ Left Dorsalis Pedis] Pulse Rate [ Right Dorsalis Pedis] Respiratory 28 H 16 23 Rate Respiratory Rate [Bilateral Throughout] Blood Pressure 146/74 146/74 146/74 O2 Sat by Pulse 98 99 Oximetry 07/25/18 07/25/18 07/26/18 23:07 23:51 00:00 Temperature 98.3 F Pulse Rate 80 Pulse Rate [ Bilateral Throughout] Pulse Rate [ 78 Left Dorsalis Pedis] Pulse Rate [ 78 Right Dorsalis Pedis] Respiratory 26 H Rate Respiratory Rate [Bilateral Throughout] Blood Pressure O2 Sat by Pulse Oximetry 07/26/18 07/26/18 07/26/18 00:01 00:05 00:55 Temperature Pulse Rate 77 79 84 Pulse Rate [ Bilateral Throughout] Pulse Rate [ Left Dorsalis Pedis] Pulse Rate [ Right Dorsalis Pedis] Respiratory 16 17 15 Rate Respiratory Rate [Bilateral Throughout] Blood Pressure 146/74 146/74 146/74 O2 Sat by Pulse 100 100 100 Oximetry 07/26/18 07/26/18 07/26/18 01:01 02:01 03:01 Temperature Pulse Rate 85 87 71 Pulse Rate [ Bilateral Throughout] Pulse Rate [ Left Dorsalis Pedis] Pulse Rate [ Right Dorsalis Pedis] Respiratory 17 17 16 Rate Respiratory Rate [Bilateral Throughout] Blood Pressure 146/74 146/74 146/74 O2 Sat by Pulse 100 99 98 Oximetry 07/26/18 07/26/18 07/26/18 03:24 03:53 04:00 Temperature 98.7 F Pulse Rate 68 74 Pulse Rate [ Bilateral Throughout] Pulse Rate [ 71 Left Dorsalis Pedis] Pulse Rate [ 71 Right Dorsalis Pedis] Respiratory 15 18 Rate Respiratory Rate [Bilateral Throughout] Blood Pressure 146/74 O2 Sat by Pulse 100 100 Oximetry 07/26/18 07/26/18 07/26/18 04:01 05:01 06:01 Temperature Pulse Rate 74 75 73 Pulse Rate [ Bilateral Throughout] Pulse Rate [ Left Dorsalis Pedis] Pulse Rate [ Right Dorsalis Pedis] Respiratory 15 15 14 Rate Respiratory Rate [Bilateral Throughout] Blood Pressure 146/74 146/74 146/74 O2 Sat by Pulse 100 100 100 Oximetry Constitutional: alert, other (Morbidly Obese, ) Eyes: non-icteric ENT: oropharynx moist, other ([place] 4/4) Neck: supple, no lymphadenopathy, no JVD Effort: mildly labored Ascultation: Bilateral: diminished breath sounds, rales (Basilar) Cardiovascular: regular rate and rhythm, other (S1, S2, no murmurs) Gastrointestinal: normoactive bowel sounds, soft, non-tender Integumentary: normal, other Extremities: no cyanosis, edema Neurologic: normal mental status, non-focal exam, pupils equal and round, CN II- XII normal, motor strength normal and Psychiatric: mood appropriate, affect normal CBC and BMP: 07/23/18 04:23 07/26/18 01:13 ABG, PT/INR, D-dimer: ABG POC ABG pH 7.355 (7.35-7.45) 07/22/18 18:22 POC ABG pCO2 34.2 (35-45) L 07/22/18 18:22 POC ABG pO2 100 (80-105) 07/22/18 18:22 POC ABG HCO3 19.1 (22-26 mml/L) 07/22/18 18:22 POC ABG Total CO2 20 (23-27mmol/L) 07/22/18 18:22 POC ABG O2 Sat 98 07/22/18 18:22 PT/INR, D-dimer PT 12.6 Sec. (12.2-14.9) 07/22/18 18:12 INR 0.89 (0.87-1.13) 07/22/18 18:12 Abnormal lab findings: Abnormal Labs 07/22/18 07/22/18 07/22/18 18:12 18:12 18:12 WBC 19.0 H RBC Hgb Hct RDW 17.8 H Seg Neuts % (Manual) 84.0 H Lymphocytes % (Manual) 11.0 L Seg Neutrophils # Man 16.0 H Lymphocytes # (Manual) Basophils # (Manual) 0.2 H APTT 22.0 L POC ABG pCO2 Sodium Chloride Carbon Dioxide 17 L BUN 28 H Creatinine 1.8 H Glucose 409 H POC Glucose Hemoglobin A1c Calcium Alkaline Phosphatase NT-Pro-B Natriuret Pep Albumin 07/22/18 07/22/18 07/22/18 18:19 18:22 19:18 WBC RBC Hgb Hct RDW Seg Neuts % (Manual) Lymphocytes % (Manual) Seg Neutrophils # Man Lymphocytes # (Manual) Basophils # (Manual) APTT POC ABG pCO2 34.2 L Sodium Chloride Carbon Dioxide BUN Creatinine Glucose POC Glucose 356 H Hemoglobin A1c Calcium Alkaline Phosphatase NT-Pro-B Natriuret Pep 1108 H Albumin 07/22/18 07/22/18 07/22/18 20:40 21:02 23:09 WBC RBC Hgb Hct RDW Seg Neuts % (Manual) Lymphocytes % (Manual) Seg Neutrophils # Man Lymphocytes # (Manual) Basophils # (Manual) APTT POC ABG pCO2 Sodium Chloride Carbon Dioxide BUN Creatinine Glucose POC Glucose 422 H 440 H Hemoglobin A1c 12.1 H Calcium Alkaline Phosphatase NT-Pro-B Natriuret Pep Albumin 07/23/18 07/23/18 07/23/18 04:23 04:23 09:08 WBC 14.3 H RBC 3.52 L Hgb 9.9 L Hct 29.8 L RDW 17.2 H Seg Neuts % (Manual) 92.0 H Lymphocytes % (Manual) 5.0 L Seg Neutrophils # Man 13.2 H Lymphocytes # (Manual) 0.7 L Basophils # (Manual) APTT POC ABG pCO2 Sodium Chloride Carbon Dioxide 19 L BUN 33 H Creatinine 1.9 H Glucose 472 H POC Glucose 463 H Hemoglobin A1c Calcium Alkaline Phosphatase 183 H NT-Pro-B Natriuret Pep Albumin 3.0 L 07/23/18 07/23/18 07/23/18 13:40 17:08 21:23 WBC RBC Hgb Hct RDW Seg Neuts % (Manual) Lymphocytes % (Manual) Seg Neutrophils # Man Lymphocytes # (Manual) Basophils # (Manual) APTT POC ABG pCO2 Sodium Chloride Carbon Dioxide BUN Creatinine Glucose POC Glucose > 500 H > 500 H > 500 H Hemoglobin A1c Calcium Alkaline Phosphatase NT-Pro-B Natriuret Pep Albumin 07/24/18 07/24/18 07/24/18 00:59 01:07 04:26 WBC RBC Hgb Hct RDW Seg Neuts % (Manual) Lymphocytes % (Manual) Seg Neutrophils # Man Lymphocytes # (Manual) Basophils # (Manual) APTT POC ABG pCO2 Sodium Chloride Carbon Dioxide BUN Creatinine Glucose 761 H* POC Glucose > 500 H > 500 H Hemoglobin A1c Calcium Alkaline Phosphatase NT-Pro-B Natriuret Pep Albumin 07/24/18 07/24/1819 04:27 05:18 05:28 WBC RBC Hgb Hct RDW Seg Neuts % (Manual) Lymphocytes % (Manual) Seg Neutrophils # Man Lymphocytes # (Manual) Basophils # (Manual) APTT POC ABG pCO2 Sodium 134 L 136 L Chloride Carbon Dioxide 20 L 18 L BUN 41 H 41 H Creatinine 1.9 H 1.9 H Glucose 614 H* 548 H* POC Glucose > 500 H Hemoglobin A1c Calcium Alkaline Phosphatase NT-Pro-B Natriuret Pep Albumin 07/24/18 07/24/18 07/24/18 06:41 07:08 08:06 WBC RBC Hgb Hct RDW Seg Neuts % (Manual) Lymphocytes % (Manual) Seg Neutrophils # Man Lymphocytes # (Manual) Basophils # (Manual) APTT POC ABG pCO2 Sodium Chloride Carbon Dioxide 19 L BUN 41 H Creatinine 2.0 H Glucose 320 H POC Glucose 409 H 227 H Hemoglobin A1c Calcium 8.3 L Alkaline Phosphatase NT-Pro-B Natriuret Pep Albumin 07/24/18 07/24/18 07/24/18 09:37 10:26 11:01 WBC RBC Hgb Hct RDW Seg Neuts % (Manual) Lymphocytes % (Manual) Seg Neutrophils # Man Lymphocytes # (Manual) Basophils # (Manual) APTT POC ABG pCO2 Sodium Chloride Carbon Dioxide 20 L BUN 43 H Creatinine 1.9 H Glucose 199 H POC Glucose 144 H 237 H Hemoglobin A1c Calcium 8.3 L Alkaline Phosphatase NT-Pro-B Natriuret Pep Albumin 07/24/18 07/24/18 07/24/18 11:36 11:51 12:07 WBC RBC Hgb Hct RDW Seg Neuts % (Manual) Lymphocytes % (Manual) Seg Neutrophils # Man Lymphocytes # (Manual) Basophils # (Manual) APTT POC ABG pCO2 Sodium Chloride Carbon Dioxide BUN Creatinine Glucose POC Glucose 268 H 259 H 262 H Hemoglobin A1c Calcium Alkaline Phosphatase NT-Pro-B Natriuret Pep Albumin 07/24/18 07/24/18 07/24/18 12:59 13:16 13:59 WBC RBC Hgb Hct RDW Seg Neuts % (Manual) Lymphocytes % (Manual) Seg Neutrophils # Man Lymphocytes # (Manual) Basophils # (Manual) APTT POC ABG pCO2 Sodium 136 L Chloride Carbon Dioxide 19 L BUN 46 H Creatinine 2.0 H Glucose 337 H POC Glucose 359 H 380 H Hemoglobin A1c Calcium 8.1 L Alkaline Phosphatase NT-Pro-B Natriuret Pep Albumin 07/24/18 07/24/18 07/24/18 15:13 16:22 17:09 WBC RBC Hgb Hct RDW Seg Neuts % (Manual) Lymphocytes % (Manual) Seg Neutrophils # Man Lymphocytes # (Manual) Basophils # (Manual) APTT POC ABG pCO2 Sodium Chloride Carbon Dioxide BUN Creatinine Glucose POC Glucose 333 H 311 H 307 H Hemoglobin A1c Calcium Alkaline Phosphatase NT-Pro-B Natriuret Pep Albumin 07/24/18 07/24/18 07/24/18 18:01 19:26 19:39 WBC RBC Hgb Hct RDW Seg Neuts % (Manual) Lymphocytes % (Manual) Seg Neutrophils # Man Lymphocytes # (Manual) Basophils # (Manual) APTT POC ABG pCO2 Sodium Chloride Carbon Dioxide 19 L BUN 51 H Creatinine 2.0 H Glucose 337 H POC Glucose 320 H 353 H Hemoglobin A1c Calcium Alkaline Phosphatase NT-Pro-B Natriuret Pep Albumin 07/24/18 07/24/18 07/24/18 20:11 21:02 22:09 WBC RBC Hgb Hct RDW Seg Neuts % (Manual) Lymphocytes % (Manual) Seg Neutrophils # Man Lymphocytes # (Manual) Basophils # (Manual) APTT POC ABG pCO2 Sodium Chloride Carbon Dioxide BUN Creatinine Glucose POC Glucose 330 H 345 H 301 H Hemoglobin A1c Calcium Alkaline Phosphatase NT-Pro-B Natriuret Pep Albumin 07/24/18 07/25/18 07/25/18 23:13 00:08 01:12 WBC RBC Hgb Hct RDW Seg Neuts % (Manual) Lymphocytes % (Manual) Seg Neutrophils # Man Lymphocytes # (Manual) Basophils # (Manual) APTT POC ABG pCO2 Sodium Chloride 109.4 H Carbon Dioxide 18 L BUN 51 H Creatinine 1.9 H Glucose 309 H POC Glucose 257 H 192 H Hemoglobin A1c Calcium Alkaline Phosphatase NT-Pro-B Natriuret Pep Albumin 07/25/18 07/25/18 07/25/18 01:22 02:06 03:01 WBC RBC Hgb Hct RDW Seg Neuts % (Manual) Lymphocytes % (Manual) Seg Neutrophils # Man Lymphocytes # (Manual) Basophils # (Manual) APTT POC ABG pCO2 Sodium Chloride Carbon Dioxide BUN Creatinine Glucose POC Glucose 168 H 146 H 120 H Hemoglobin A1c Calcium Alkaline Phosphatase NT-Pro-B Natriuret Pep Albumin 07/25/18 07/25/18 07/25/18 04:11 04:14 05:13 WBC RBC Hgb Hct RDW Seg Neuts % (Manual) Lymphocytes % (Manual) Seg Neutrophils # Man Lymphocytes # (Manual) Basophils # (Manual) APTT POC ABG pCO2 Sodium Chloride Carbon Dioxide 21 L BUN 52 H Creatinine 1.8 H Glucose 121 H POC Glucose 121 H 136 H Hemoglobin A1c Calcium 8.2 L Alkaline Phosphatase NT-Pro-B Natriuret Pep Albumin 07/25/18 07/25/18 07/25/18 06:04 06:49 07:53 WBC RBC Hgb Hct RDW Seg Neuts % (Manual) Lymphocytes % (Manual) Seg Neutrophils # Man Lymphocytes # (Manual) Basophils # (Manual) APTT POC ABG pCO2 Sodium Chloride Carbon Dioxide BUN Creatinine Glucose POC Glucose 138 H 156 H 225 H Hemoglobin A1c Calcium Alkaline Phosphatase NT-Pro-B Natriuret Pep Albumin 07/25/18 07/25/18 07/25/18 09:38 11:29 16:55 WBC RBC Hgb Hct RDW Seg Neuts % (Manual) Lymphocytes % (Manual) Seg Neutrophils # Man Lymphocytes # (Manual) Basophils # (Manual) APTT POC ABG pCO2 Sodium Chloride Carbon Dioxide 20 L BUN 50 H Creatinine 1.8 H Glucose 266 H POC Glucose 334 H 478 H Hemoglobin A1c Calcium 8.1 L Alkaline Phosphatase NT-Pro-B Natriuret Pep Albumin 07/25/18 07/25/18 07/25/18 17:33 17:56 19:10 WBC RBC Hgb Hct RDW Seg Neuts % (Manual) Lymphocytes % (Manual) Seg Neutrophils # Man Lymphocytes # (Manual) Basophils # (Manual) APTT POC ABG pCO2 Sodium 136 L Chloride Carbon Dioxide 19 L 19 L BUN 56 H 55 H Creatinine 1.9 H 1.9 H Glucose 462 H 553 H* POC Glucose 462 H Hemoglobin A1c Calcium 8.1 L Alkaline Phosphatase NT-Pro-B Natriuret Pep Albumin 07/25/18 07/25/18 07/25/18 19:30 20:34 21:14 WBC RBC Hgb Hct RDW Seg Neuts % (Manual) Lymphocytes % (Manual) Seg Neutrophils # Man Lymphocytes # (Manual) Basophils # (Manual) APTT POC ABG pCO2 Sodium Chloride Carbon Dioxide BUN Creatinine Glucose POC Glucose > 500 H > 500 H 493 H Hemoglobin A1c Calcium Alkaline Phosphatase NT-Pro-B Natriuret Pep Albumin 07/25/18 07/25/18 07/25/18 22:00 22:09 23:02 WBC RBC Hgb Hct RDW Seg Neuts % (Manual) Lymphocytes % (Manual) Seg Neutrophils # Man Lymphocytes # (Manual) Basophils # (Manual) APTT POC ABG pCO2 Sodium Chloride Carbon Dioxide BUN Creatinine Glucose POC Glucose > 500 H 457 H 435 H Hemoglobin A1c Calcium Alkaline Phosphatase NT-Pro-B Natriuret Pep Albumin 07/25/18 07/26/18 07/26/18 23:15 00:09 00:54 WBC RBC Hgb Hct RDW Seg Neuts % (Manual) Lymphocytes % (Manual) Seg Neutrophils # Man Lymphocytes # (Manual) Basophils # (Manual) APTT POC ABG pCO2 Sodium Chloride Carbon Dioxide 21 L BUN 58 H Creatinine 1.9 H Glucose 393 H POC Glucose 317 H 288 H Hemoglobin A1c Calcium Alkaline Phosphatase NT-Pro-B Natriuret Pep Albumin 07/26/18 07/26/18 07/26/18 01:13 02:10 02:51 WBC RBC Hgb Hct RDW Seg Neuts % (Manual) Lymphocytes % (Manual) Seg Neutrophils # Man Lymphocytes # (Manual) Basophils # (Manual) APTT POC ABG pCO2 Sodium Chloride Carbon Dioxide 18 L BUN 58 H Creatinine 1.8 H Glucose 231 H POC Glucose 205 H 187 H Hemoglobin A1c Calcium Alkaline Phosphatase NT-Pro-B Natriuret Pep Albumin 07/26/18 07/26/18 07/26/18 04:11 05:02 06:17 WBC RBC Hgb Hct RDW Seg Neuts % (Manual) Lymphocytes % (Manual) Seg Neutrophils # Man Lymphocytes # (Manual) Basophils # (Manual) APTT POC ABG pCO2 Sodium Chloride Carbon Dioxide BUN Creatinine Glucose POC Glucose 253 H 166 H 150 H Hemoglobin A1c Calcium Alkaline Phosphatase NT-Pro-B Natriuret Pep Albumin 07/26/18 06:53 WBC RBC Hgb Hct RDW Seg Neuts % (Manual) Lymphocytes % (Manual) Seg Neutrophils # Man Lymphocytes # (Manual) Basophils # (Manual) APTT POC ABG pCO2 Sodium Chloride Carbon Dioxide BUN Creatinine Glucose POC Glucose 187 H Hemoglobin A1c Calcium Alkaline Phosphatase NT-Pro-B Natriuret Pep Albumin Chest x-ray: image reviewed Allied health notes reviewed: RT
[2018-07-26] MEDS: DUONEB *Not for PRN Use IH SCH ×4 (08:36→19:17)
[2018-07-26] MEDS: PULMICORT IH SCH ×2 (08:36→19:17)
[2018-07-26] MEDS: BROVANA NEBU IH SCH ×2 (08:39→19:17)
--- NOTE | 2018-07-26 08:59 | Progress Note ---
Assessment and Plan Acute hypoxic respiratory failure, Acute pulmonary edema AE-COPD Morbid obesity Acute renal failure Hyperosmolar hyperglycemic state -NIPPV qhs and prn -Gentle diuresis while monitoring renal function, electrolyte profile and hemodynamics. -Accuchecks with glycemic control, currently on insulin therapy per protocol -goal blood glucose of 140-180 mg/dL -Nutrition consult - continue to wean supplemental oxygen to keep O2 sats > 90% - continue bronchodilators with pulmonary hygiene per RT - Maintenance of sleep -wake cycle - Mobility/PT/OT -VTE prophylaxis - Influenza and pneumonia vaccination per protocol -Follow up CXR in the next 24 hours -Aspiration precautions, keep HOB >40 -Weight loss and life style modifications -Chronic home medications OK to transfer out of the ICU Subjective Date of service: 07/26/18 Interval history: Patient is seen today for: Acute hypoxic respiratory failure, hyperosmolar hyperglycemic state, morbid obesity; pulmonary edema with renal insufficiency Seen and examined at bedside. Vitals, labs, medications, chart and imaging reviewed.; 24hour events reviewed; nursing and respiratory care staff consulted; no adverse overnight events reported to me; She denies any chest pain, no fevers or chills, no abdominal pain, no vomiting She continues to feel better, breathing better, currently on 3L NC, sitting up in a chair out of bed, sub-optimal glycemic control. She apparently had been on a cardiac diet, but not a steady carb diet. Objective Vital Signs - 12hr 07/25/18 07/25/18 07/25/18 21:00 21:01 22:01 Temperature 98.7 F Pulse Rate 91 H 85 Pulse Rate [ Left Dorsalis Pedis] Pulse Rate [ Right Dorsalis Pedis] Respiratory 28 H 16 Rate Blood Pressure 146/74 146/74 O2 Sat by Pulse 98 99 Oximetry 07/25/18 07/25/18 07/25/18 23:01 23:07 23:51 Temperature Pulse Rate 80 80 Pulse Rate [ 78 Left Dorsalis Pedis] Pulse Rate [ 78 Right Dorsalis Pedis] Respiratory 23 26 H Rate Blood Pressure 146/74 O2 Sat by Pulse Oximetry 07/26/18 07/26/18 07/26/18 00:00 00:01 00:05 Temperature 98.3 F Pulse Rate 77 79 Pulse Rate [ Left Dorsalis Pedis] Pulse Rate [ Right Dorsalis Pedis] Respiratory 16 17 Rate Blood Pressure 146/74 146/74 O2 Sat by Pulse 100 100 Oximetry 07/26/18 07/26/18 07/26/18 00:55 01:01 02:01 Temperature Pulse Rate 84 85 87 Pulse Rate [ Left Dorsalis Pedis] Pulse Rate [ Right Dorsalis Pedis] Respiratory 15 17 17 Rate Blood Pressure 146/74 146/74 146/74 O2 Sat by Pulse 100 100 99 Oximetry 07/26/18 07/26/18 07/26/18 03:01 03:24 03:53 Temperature 98.7 F Pulse Rate 71 68 Pulse Rate [ Left Dorsalis Pedis] Pulse Rate [ Right Dorsalis Pedis] Respiratory 16 15 Rate Blood Pressure 146/74 146/74 O2 Sat by Pulse 98 100 Oximetry 07/26/18 07/26/18 07/26/18 04:00 04:01 05:01 Temperature Pulse Rate 74 74 75 Pulse Rate [ 71 Left Dorsalis Pedis] Pulse Rate [ 71 Right Dorsalis Pedis] Respiratory 18 15 15 Rate Blood Pressure 146/74 146/74 O2 Sat by Pulse 100 100 100 Oximetry 07/26/18 06:01 Temperature Pulse Rate 73 Pulse Rate [ Left Dorsalis Pedis] Pulse Rate [ Right Dorsalis Pedis] Respiratory 14 Rate Blood Pressure 146/74 O2 Sat by Pulse 100 Oximetry Constitutional: alert, other (Morbidly Obese, ) Eyes: non-icteric ENT: oropharynx moist, other ([place] 4/4) Neck: supple, no lymphadenopathy, no JVD Effort: mildly labored Ascultation: Bilateral: diminished breath sounds, wheezes (Expiratory wheeze), rales (Basilar) Cardiovascular: regular rate and rhythm, other (S1, S2, no murmurs) Gastrointestinal: normoactive bowel sounds, soft, non-tender Integumentary: normal Extremities: no cyanosis, pulses normal, edema (improving) Neurologic: normal mental status, non-focal exam, pupils equal and round, CN II- XII normal, motor strength normal and Psychiatric: mood appropriate, affect normal CBC and BMP: 07/23/18 04:23 07/26/18 16:46 ABG, PT/INR, D-dimer: ABG POC ABG pH 7.355 (7.35-7.45) 07/22/18 18:22 POC ABG pCO2 34.2 (35-45) L 07/22/18 18:22 POC ABG pO2 100 (80-105) 07/22/18 18:22 POC ABG HCO3 19.1 (22-26 mml/L) 07/22/18 18:22 POC ABG Total CO2 20 (23-27mmol/L) 07/22/18 18:22 POC ABG O2 Sat 98 07/22/18 18:22 PT/INR, D-dimer PT 12.6 Sec. (12.2-14.9) 07/22/18 18:12 INR 0.89 (0.87-1.13) 07/22/18 18:12 Abnormal lab findings: Abnormal Labs 07/22/18 07/22/18 07/22/18 18:12 18:12 18:12 WBC 19.0 H RBC Hgb Hct RDW 17.8 H Seg Neuts % (Manual) 84.0 H Lymphocytes % (Manual) 11.0 L Seg Neutrophils # Man 16.0 H Lymphocytes # (Manual) Basophils # (Manual) 0.2 H APTT 22.0 L POC ABG pCO2 Sodium Chloride Carbon Dioxide 17 L BUN 28 H Creatinine 1.8 H Glucose 409 H POC Glucose Hemoglobin A1c Calcium Alkaline Phosphatase NT-Pro-B Natriuret Pep Albumin 07/22/18 07/22/18 07/22/18 18:19 18:22 19:18 WBC RBC Hgb Hct RDW Seg Neuts % (Manual) Lymphocytes % (Manual) Seg Neutrophils # Man Lymphocytes # (Manual) Basophils # (Manual) APTT POC ABG pCO2 34.2 L Sodium Chloride Carbon Dioxide BUN Creatinine Glucose POC Glucose 356 H Hemoglobin A1c Calcium Alkaline Phosphatase NT-Pro-B Natriuret Pep 1108 H Albumin 07/22/18 07/22/18 07/22/18 20:40 21:02 23:09 WBC RBC Hgb Hct RDW Seg Neuts % (Manual) Lymphocytes % (Manual) Seg Neutrophils # Man Lymphocytes # (Manual) Basophils # (Manual) APTT POC ABG pCO2 Sodium Chloride Carbon Dioxide BUN Creatinine Glucose POC Glucose 422 H 440 H Hemoglobin A1c 12.1 H Calcium Alkaline Phosphatase NT-Pro-B Natriuret Pep Albumin 07/23/18 07/23/18 07/23/18 04:23 04:23 09:08 WBC 14.3 H RBC 3.52 L Hgb 9.9 L Hct 29.8 L RDW 17.2 H Seg Neuts % (Manual) 92.0 H Lymphocytes % (Manual) 5.0 L Seg Neutrophils # Man 13.2 H Lymphocytes # (Manual) 0.7 L Basophils # (Manual) APTT POC ABG pCO2 Sodium Chloride Carbon Dioxide 19 L BUN 33 H Creatinine 1.9 H Glucose 472 H POC Glucose 463 H Hemoglobin A1c Calcium Alkaline Phosphatase 183 H NT-Pro-B Natriuret Pep Albumin 3.0 L 07/23/18 07/23/18 07/23/18 13:40 17:08 21:23 WBC RBC Hgb Hct RDW Seg Neuts % (Manual) Lymphocytes % (Manual) Seg Neutrophils # Man Lymphocytes # (Manual) Basophils # (Manual) APTT POC ABG pCO2 Sodium Chloride Carbon Dioxide BUN Creatinine Glucose POC Glucose > 500 H > 500 H > 500 H Hemoglobin A1c Calcium Alkaline Phosphatase NT-Pro-B Natriuret Pep Albumin 07/24/18 07/24/18 07/24/18 00:59 01:07 04:26 WBC RBC Hgb Hct RDW Seg Neuts % (Manual) Lymphocytes % (Manual) Seg Neutrophils # Man Lymphocytes # (Manual) Basophils # (Manual) APTT POC ABG pCO2 Sodium Chloride Carbon Dioxide BUN Creatinine Glucose 761 H* POC Glucose > 500 H > 500 H Hemoglobin A1c Calcium Alkaline Phosphatase NT-Pro-B Natriuret Pep Albumin 07/24/18 07/24/18 07/24/18 04:27 05:18 05:28 WBC RBC Hgb Hct RDW Seg Neuts % (Manual) Lymphocytes % (Manual) Seg Neutrophils # Man Lymphocytes # (Manual) Basophils # (Manual) APTT POC ABG pCO2 Sodium 134 L 136 L Chloride Carbon Dioxide 20 L 18 L BUN 41 H 41 H Creatinine 1.9 H 1.9 H Glucose 614 H* 548 H* POC Glucose > 500 H Hemoglobin A1c Calcium Alkaline Phosphatase NT-Pro-B Natriuret Pep Albumin 07/24/18 07/24/18 07/24/18 06:41 07:08 08:06 WBC RBC Hgb Hct RDW Seg Neuts % (Manual) Lymphocytes % (Manual) Seg Neutrophils # Man Lymphocytes # (Manual) Basophils # (Manual) APTT POC ABG pCO2 Sodium Chloride Carbon Dioxide 19 L BUN 41 H Creatinine 2.0 H Glucose 320 H POC Glucose 409 H 227 H Hemoglobin A1c Calcium 8.3 L Alkaline Phosphatase NT-Pro-B Natriuret Pep Albumin 07/24/18 07/24/18 07/24/18 09:37 10:26 11:01 WBC RBC Hgb Hct RDW Seg Neuts % (Manual) Lymphocytes % (Manual) Seg Neutrophils # Man Lymphocytes # (Manual) Basophils # (Manual) APTT POC ABG pCO2 Sodium Chloride Carbon Dioxide 20 L BUN 43 H Creatinine 1.9 H Glucose 199 H POC Glucose 144 H 237 H Hemoglobin A1c Calcium 8.3 L Alkaline Phosphatase NT-Pro-B Natriuret Pep Albumin 07/24/18 07/24/18 07/24/18 11:36 11:51 12:07 WBC RBC Hgb Hct RDW Seg Neuts % (Manual) Lymphocytes % (Manual) Seg Neutrophils # Man Lymphocytes # (Manual) Basophils # (Manual) APTT POC ABG pCO2 Sodium Chloride Carbon Dioxide BUN Creatinine Glucose POC Glucose 268 H 259 H 262 H Hemoglobin A1c Calcium Alkaline Phosphatase NT-Pro-B Natriuret Pep Albumin 07/24/18 07/24/18 07/24/18 12:59 13:16 13:59 WBC RBC Hgb Hct RDW Seg Neuts % (Manual) Lymphocytes % (Manual) Seg Neutrophils # Man Lymphocytes # (Manual) Basophils # (Manual) APTT POC ABG pCO2 Sodium 136 L Chloride Carbon Dioxide 19 L BUN 46 H Creatinine 2.0 H Glucose 337 H POC Glucose 359 H 380 H Hemoglobin A1c Calcium 8.1 L Alkaline Phosphatase NT-Pro-B Natriuret Pep Albumin 07/24/18 07/24/18 07/24/18 15:13 16:22 17:09 WBC RBC Hgb Hct RDW Seg Neuts % (Manual) Lymphocytes % (Manual) Seg Neutrophils # Man Lymphocytes # (Manual) Basophils # (Manual) APTT POC ABG pCO2 Sodium Chloride Carbon Dioxide BUN Creatinine Glucose POC Glucose 333 H 311 H 307 H Hemoglobin A1c Calcium Alkaline Phosphatase NT-Pro-B Natriuret Pep Albumin 07/24/18 07/24/18 07/24/18 18:01 19:26 19:39 WBC RBC Hgb Hct RDW Seg Neuts % (Manual) Lymphocytes % (Manual) Seg Neutrophils # Man Lymphocytes # (Manual) Basophils # (Manual) APTT POC ABG pCO2 Sodium Chloride Carbon Dioxide 19 L BUN 51 H Creatinine 2.0 H Glucose 337 H POC Glucose 320 H 353 H Hemoglobin A1c Calcium Alkaline Phosphatase NT-Pro-B Natriuret Pep Albumin 07/24/18 07/24/18 07/24/18 20:11 21:02 22:09 WBC RBC Hgb Hct RDW Seg Neuts % (Manual) Lymphocytes % (Manual) Seg Neutrophils # Man Lymphocytes # (Manual) Basophils # (Manual) APTT POC ABG pCO2 Sodium Chloride Carbon Dioxide BUN Creatinine Glucose POC Glucose 330 H 345 H 301 H Hemoglobin A1c Calcium Alkaline Phosphatase NT-Pro-B Natriuret Pep Albumin 07/24/18 07/25/18 07/25/18 23:13 00:08 01:12 WBC RBC Hgb Hct RDW Seg Neuts % (Manual) Lymphocytes % (Manual) Seg Neutrophils # Man Lymphocytes # (Manual) Basophils # (Manual) APTT POC ABG pCO2 Sodium Chloride 109.4 H Carbon Dioxide 18 L BUN 51 H Creatinine 1.9 H Glucose 309 H POC Glucose 257 H 192 H Hemoglobin A1c Calcium Alkaline Phosphatase NT-Pro-B Natriuret Pep Albumin 07/25/18 07/25/18 07/25/18 01:22 02:06 03:01 WBC RBC Hgb Hct RDW Seg Neuts % (Manual) Lymphocytes % (Manual) Seg Neutrophils # Man Lymphocytes # (Manual) Basophils # (Manual) APTT POC ABG pCO2 Sodium Chloride Carbon Dioxide BUN Creatinine Glucose POC Glucose 168 H 146 H 120 H Hemoglobin A1c Calcium Alkaline Phosphatase NT-Pro-B Natriuret Pep Albumin 07/25/18 07/25/18 07/25/18 04:11 04:14 05:13 WBC RBC Hgb Hct RDW Seg Neuts % (Manual) Lymphocytes % (Manual) Seg Neutrophils # Man Lymphocytes # (Manual) Basophils # (Manual) APTT POC ABG pCO2 Sodium Chloride Carbon Dioxide 21 L BUN 52 H Creatinine 1.8 H Glucose 121 H POC Glucose 121 H 136 H Hemoglobin A1c Calcium 8.2 L Alkaline Phosphatase NT-Pro-B Natriuret Pep Albumin 07/25/18 07/25/18 07/25/18 06:04 06:49 07:53 WBC RBC Hgb Hct RDW Seg Neuts % (Manual) Lymphocytes % (Manual) Seg Neutrophils # Man Lymphocytes # (Manual) Basophils # (Manual) APTT POC ABG pCO2 Sodium Chloride Carbon Dioxide BUN Creatinine Glucose POC Glucose 138 H 156 H 225 H Hemoglobin A1c Calcium Alkaline Phosphatase NT-Pro-B Natriuret Pep Albumin 07/25/18 07/25/18 07/25/18 09:38 11:29 16:55 WBC RBC Hgb Hct RDW Seg Neuts % (Manual) Lymphocytes % (Manual) Seg Neutrophils # Man Lymphocytes # (Manual) Basophils # (Manual) APTT POC ABG pCO2 Sodium Chloride Carbon Dioxide 20 L BUN 50 H Creatinine 1.8 H Glucose 266 H POC Glucose 334 H 478 H Hemoglobin A1c Calcium 8.1 L Alkaline Phosphatase NT-Pro-B Natriuret Pep Albumin 07/25/18 07/25/18 07/25/18 17:33 17:56 19:10 WBC RBC Hgb Hct RDW Seg Neuts % (Manual) Lymphocytes % (Manual) Seg Neutrophils # Man Lymphocytes # (Manual) Basophils # (Manual) APTT POC ABG pCO2 Sodium 136 L Chloride Carbon Dioxide 19 L 19 L BUN 56 H 55 H Creatinine 1.9 H 1.9 H Glucose 462 H 553 H* POC Glucose 462 H Hemoglobin A1c Calcium 8.1 L Alkaline Phosphatase NT-Pro-B Natriuret Pep Albumin 07/25/18 07/25/18 07/25/18 19:30 20:34 21:14 WBC RBC Hgb Hct RDW Seg Neuts % (Manual) Lymphocytes % (Manual) Seg Neutrophils # Man Lymphocytes # (Manual) Basophils # (Manual) APTT POC ABG pCO2 Sodium Chloride Carbon Dioxide BUN Creatinine Glucose POC Glucose > 500 H > 500 H 493 H Hemoglobin A1c Calcium Alkaline Phosphatase NT-Pro-B Natriuret Pep Albumin 07/25/18 07/25/18 07/25/18 22:00 22:09 23:02 WBC RBC Hgb Hct RDW Seg Neuts % (Manual) Lymphocytes % (Manual) Seg Neutrophils # Man Lymphocytes # (Manual) Basophils # (Manual) APTT POC ABG pCO2 Sodium Chloride Carbon Dioxide BUN Creatinine Glucose POC Glucose > 500 H 457 H 435 H Hemoglobin A1c Calcium Alkaline Phosphatase NT-Pro-B Natriuret Pep Albumin 07/25/18 07/26/18 07/26/18 23:15 00:09 00:54 WBC RBC Hgb Hct RDW Seg Neuts % (Manual) Lymphocytes % (Manual) Seg Neutrophils # Man Lymphocytes # (Manual) Basophils # (Manual) APTT POC ABG pCO2 Sodium Chloride Carbon Dioxide 21 L BUN 58 H Creatinine 1.9 H Glucose 393 H POC Glucose 317 H 288 H Hemoglobin A1c Calcium Alkaline Phosphatase NT-Pro-B Natriuret Pep Albumin 07/26/18 07/26/18 07/26/18 01:13 02:10 02:51 WBC RBC Hgb Hct RDW Seg Neuts % (Manual) Lymphocytes % (Manual) Seg Neutrophils # Man Lymphocytes # (Manual) Basophils # (Manual) APTT POC ABG pCO2 Sodium Chloride Carbon Dioxide 18 L BUN 58 H Creatinine 1.8 H Glucose 231 H POC Glucose 205 H 187 H Hemoglobin A1c Calcium Alkaline Phosphatase NT-Pro-B Natriuret Pep Albumin 07/26/18 07/26/18 07/26/18 04:11 05:02 06:17 WBC RBC Hgb Hct RDW Seg Neuts % (Manual) Lymphocytes % (Manual) Seg Neutrophils # Man Lymphocytes # (Manual) Basophils # (Manual) APTT POC ABG pCO2 Sodium Chloride Carbon Dioxide BUN Creatinine Glucose POC Glucose 253 H 166 H 150 H Hemoglobin A1c Calcium Alkaline Phosphatase NT-Pro-B Natriuret Pep Albumin 07/26/18 07/26/18 06:53 08:06 WBC RBC Hgb Hct RDW Seg Neuts % (Manual) Lymphocytes % (Manual) Seg Neutrophils # Man Lymphocytes # (Manual) Basophils # (Manual) APTT POC ABG pCO2 Sodium Chloride Carbon Dioxide BUN Creatinine Glucose POC Glucose 187 H 142 H Hemoglobin A1c Calcium Alkaline Phosphatase NT-Pro-B Natriuret Pep Albumin Allied health notes reviewed: RT
[2018-07-26] MEDS: LANTUS SUB-Q SCH (09:00)
[2018-07-26] MEDS: ZESTRIL PO SCH (09:25)
[2018-07-26] MEDS: HCTZ PO SCH (09:26)
[2018-07-26] MEDS: NEURONTIN PO SCH ×2 (09:26→22:38)
[2018-07-26] MEDS: SODIUM CHLORIDE FLUSH SYRINGE 10 ML IV SCH ×2 (09:31→22:39)
[2018-07-26 10:40] LABS: Calcium 7.6 mg/dL (8.4-10.2)
[2018-07-26 17:29] LABS: Calcium 7.6 mg/dL (8.4-10.2)
[2018-07-26] MEDS: SINGULAIR PO SCH (22:37)
[2018-07-26] MEDS: PRAVACHOL PO SCH (22:37)
[2018-07-27] MEDS: HEPARIN SUB-Q SCH ×4 (07:40→21:30)
[2018-07-27] MEDS: PULMICORT IH SCH ×2 (08:46→21:32)
[2018-07-27] MEDS: BROVANA NEBU IH SCH ×2 (08:46→21:32)
[2018-07-27] MEDS: DUONEB *Not for PRN Use IH SCH ×4 (08:56→21:33)
[2018-07-27] MEDS: HumaLOG SUB-Q SCH ×8 (09:06→22:13)
[2018-07-27] MEDS: LANTUS SUB-Q SCH ×2 (09:08→22:13)
[2018-07-27] MEDS: ZESTRIL PO SCH (09:13)
[2018-07-27] MEDS: HCTZ PO SCH (09:13)
[2018-07-27] MEDS: NEURONTIN PO SCH ×3 (09:13→21:30)
--- NOTE | 2018-07-27 11:10 | Progress Note ---
Assessment and Plan Acute hypoxic respiratory failure, Acute pulmonary edema AE-COPD Morbid obesity Acute renal failure Hyperosmolar hyperglycemic state - continue NIPPV qhs and prn - gentle diuresis per nephrology rec's at this point - Accuchecks with glycemic control, currently on insulin therapy per protocol - goal blood glucose of 140-180 mg/dL - Quick systemic steroid taper - continue to wean supplemental oxygen to keep O2 sats > 90% - continue bronchodilators with pulmonary hygiene per RT - Maintenance of sleep -wake cycle - Mobility/PT/OT - VTE prophylaxis - Influenza and pneumonia vaccination per protocol - CXR prn - Aspiration precautions, keep HOB >40 - Weight loss and life style modifications - Chronic home medications .... re-evaluate in am & prn Subjective Date of service: 07/27/18 Principal diagnosis: Ac. hypoxemic resp failure; hyperosmolar hyperglycemic state, morbid obesit Interval history: Patient is seen today for: Acute hypoxic respiratory failure, hyperosmolar hyperglycemic state, morbid obesity; pulmonary edema with renal insufficiency Seen and examined at bedside; 24hour events reviewed; nursing and respiratory care staff consulted; no adverse overnight events reported to me; continues to feel better; denies acute chest pains or palpitations; No N/V/F/C; remains on supplemental oxygen therapy Objective Vital Signs - 12hr 07/26/18 07/27/18 07/27/18 23:49 00:00 00:01 Temperature 98.5 F Pulse Rate 78 76 76 Pulse Rate [ 85 Apical] Pulse Rate [ Bilateral Throughout] Respiratory 14 18 18 Rate Respiratory Rate [Bilateral Throughout] Blood Pressure 117/91 139/62 O2 Sat by Pulse 100 99 99 Oximetry 07/27/18 07/27/18 07/27/18 01:01 02:01 03:01 Temperature Pulse Rate 71 66 77 Pulse Rate [ Apical] Pulse Rate [ Bilateral Throughout] Respiratory 16 17 16 Rate Respiratory Rate [Bilateral Throughout] Blood Pressure 149/69 123/62 149/69 O2 Sat by Pulse 98 96 100 Oximetry 07/27/18 07/27/18 07/27/18 03:02 04:00 04:01 Temperature 97.5 F L Pulse Rate 77 71 71 Pulse Rate [ 85 Apical] Pulse Rate [ Bilateral Throughout] Respiratory 19 18 19 Rate Respiratory Rate [Bilateral Throughout] Blood Pressure 123/62 O2 Sat by Pulse 100 99 97 Oximetry 07/27/18 07/27/18 07/27/18 05:01 06:01 06:10 Temperature 97.6 F Pulse Rate 65 75 Pulse Rate [ Apical] Pulse Rate [ Bilateral Throughout] Respiratory 16 13 Rate Respiratory Rate [Bilateral Throughout] Blood Pressure 123/62 123/62 O2 Sat by Pulse 98 99 Oximetry 07/27/18 07/27/18 07/27/18 06:20 07:01 08:00 Temperature 97.6 F 98.2 F Pulse Rate 78 80 Pulse Rate [ Apical] Pulse Rate [ Bilateral Throughout] Respiratory 18 17 Rate Respiratory Rate [Bilateral Throughout] Blood Pressure 123/62 104/54 O2 Sat by Pulse 100 98 Oximetry 07/27/18 07/27/18 07/27/18 08:46 09:01 09:06 Temperature Pulse Rate 71 Pulse Rate [ Apical] Pulse Rate [ 99 H 100 H Bilateral Throughout] Respiratory 13 Rate Respiratory 20 20 Rate [Bilateral Throughout] Blood Pressure 120/48 O2 Sat by Pulse 98 Oximetry 07/27/18 07/27/18 09:13 10:01 Temperature Pulse Rate 74 80 Pulse Rate [ Apical] Pulse Rate [ Bilateral Throughout] Respiratory 19 Rate Respiratory Rate [Bilateral Throughout] Blood Pressure 120/48 124/61 O2 Sat by Pulse 97 Oximetry Constitutional: alert, other (Morbidly Obese, ) Eyes: non-icteric ENT: oropharynx moist, other ([place] 4/4) Neck: supple, no lymphadenopathy, no JVD Effort: mildly labored Ascultation: Bilateral: diminished breath sounds, rhonchi, other (prolonged exp phase) Percussion: Bilateral: not dull Cardiovascular: regular rate and rhythm, other (S1, S2, no murmurs) Gastrointestinal: normoactive bowel sounds, soft, non-tender Integumentary: normal, other Extremities: no cyanosis, edema Neurologic: normal mental status, non-focal exam, pupils equal and round, CN II- XII normal, motor strength normal and Psychiatric: mood appropriate, affect normal CBC and BMP: 07/23/18 04:23 07/26/18 16:46 ABG, PT/INR, D-dimer: ABG POC ABG pH 7.355 (7.35-7.45) 07/22/18 18:22 POC ABG pCO2 34.2 (35-45) L 07/22/18 18:22 POC ABG pO2 100 (80-105) 07/22/18 18:22 POC ABG HCO3 19.1 (22-26 mml/L) 07/22/18 18:22 POC ABG Total CO2 20 (23-27mmol/L) 07/22/18 18:22 POC ABG O2 Sat 98 07/22/18 18:22 PT/INR, D-dimer PT 12.6 Sec. (12.2-14.9) 07/22/18 18:12 INR 0.89 (0.87-1.13) 07/22/18 18:12 Abnormal lab findings: Abnormal Labs 07/22/18 07/22/18 07/22/18 18:12 18:12 18:12 WBC 19.0 H RBC Hgb Hct RDW 17.8 H Seg Neuts % (Manual) 84.0 H Lymphocytes % (Manual) 11.0 L Seg Neutrophils # Man 16.0 H Lymphocytes # (Manual) Basophils # (Manual) 0.2 H APTT 22.0 L POC ABG pCO2 Sodium Chloride Carbon Dioxide 17 L BUN 28 H Creatinine 1.8 H Glucose 409 H POC Glucose Hemoglobin A1c Calcium Alkaline Phosphatase NT-Pro-B Natriuret Pep Albumin 07/22/18 07/22/18 07/22/18 18:19 18:22 19:18 WBC RBC Hgb Hct RDW Seg Neuts % (Manual) Lymphocytes % (Manual) Seg Neutrophils # Man Lymphocytes # (Manual) Basophils # (Manual) APTT POC ABG pCO2 34.2 L Sodium Chloride Carbon Dioxide BUN Creatinine Glucose POC Glucose 356 H Hemoglobin A1c Calcium Alkaline Phosphatase NT-Pro-B Natriuret Pep 1108 H Albumin 07/22/18 07/22/18 07/22/18 20:40 21:02 23:09 WBC RBC Hgb Hct RDW Seg Neuts % (Manual) Lymphocytes % (Manual) Seg Neutrophils # Man Lymphocytes # (Manual) Basophils # (Manual) APTT POC ABG pCO2 Sodium Chloride Carbon Dioxide BUN Creatinine Glucose POC Glucose 422 H 440 H Hemoglobin A1c 12.1 H Calcium Alkaline Phosphatase NT-Pro-B Natriuret Pep Albumin 07/23/18 07/23/18 07/23/18 04:23 04:23 09:08 WBC 14.3 H RBC 3.52 L Hgb 9.9 L Hct 29.8 L RDW 17.2 H Seg Neuts % (Manual) 92.0 H Lymphocytes % (Manual) 5.0 L Seg Neutrophils # Man 13.2 H Lymphocytes # (Manual) 0.7 L Basophils # (Manual) APTT POC ABG pCO2 Sodium Chloride Carbon Dioxide 19 L BUN 33 H Creatinine 1.9 H Glucose 472 H POC Glucose 463 H Hemoglobin A1c Calcium Alkaline Phosphatase 183 H NT-Pro-B Natriuret Pep Albumin 3.0 L 07/23/18 07/23/18 07/23/18 13:40 17:08 21:23 WBC RBC Hgb Hct RDW Seg Neuts % (Manual) Lymphocytes % (Manual) Seg Neutrophils # Man Lymphocytes # (Manual) Basophils # (Manual) APTT POC ABG pCO2 Sodium Chloride Carbon Dioxide BUN Creatinine Glucose POC Glucose > 500 H > 500 H > 500 H Hemoglobin A1c Calcium Alkaline Phosphatase NT-Pro-B Natriuret Pep Albumin 07/24/18 07/24/18 07/24/18 00:59 01:07 04:26 WBC RBC Hgb Hct RDW Seg Neuts % (Manual) Lymphocytes % (Manual) Seg Neutrophils # Man Lymphocytes # (Manual) Basophils # (Manual) APTT POC ABG pCO2 Sodium Chloride Carbon Dioxide BUN Creatinine Glucose 761 H* POC Glucose > 500 H > 500 H Hemoglobin A1c Calcium Alkaline Phosphatase NT-Pro-B Natriuret Pep Albumin 07/24/18 07/24/18 07/24/18 04:27 05:18 05:28 WBC RBC Hgb Hct RDW Seg Neuts % (Manual) Lymphocytes % (Manual) Seg Neutrophils # Man Lymphocytes # (Manual) Basophils # (Manual) APTT POC ABG pCO2 Sodium 134 L 136 L Chloride Carbon Dioxide 20 L 18 L BUN 41 H 41 H Creatinine 1.9 H 1.9 H Glucose 614 H* 548 H* POC Glucose > 500 H Hemoglobin A1c Calcium Alkaline Phosphatase NT-Pro-B Natriuret Pep Albumin 07/24/18 07/24/18 07/24/18 06:41 07:08 08:06 WBC RBC Hgb Hct RDW Seg Neuts % (Manual) Lymphocytes % (Manual) Seg Neutrophils # Man Lymphocytes # (Manual) Basophils # (Manual) APTT POC ABG pCO2 Sodium Chloride Carbon Dioxide 19 L BUN 41 H Creatinine 2.0 H Glucose 320 H POC Glucose 409 H 227 H Hemoglobin A1c Calcium 8.3 L Alkaline Phosphatase NT-Pro-B Natriuret Pep Albumin 07/24/18 07/24/18 07/24/18 09:37 10:26 11:01 WBC RBC Hgb Hct RDW Seg Neuts % (Manual) Lymphocytes % (Manual) Seg Neutrophils # Man Lymphocytes # (Manual) Basophils # (Manual) APTT POC ABG pCO2 Sodium Chloride Carbon Dioxide 20 L BUN 43 H Creatinine 1.9 H Glucose 199 H POC Glucose 144 H 237 H Hemoglobin A1c Calcium 8.3 L Alkaline Phosphatase NT-Pro-B Natriuret Pep Albumin 07/24/18 07/24/18 07/24/18 11:36 11:51 12:07 WBC RBC Hgb Hct RDW Seg Neuts % (Manual) Lymphocytes % (Manual) Seg Neutrophils # Man Lymphocytes # (Manual) Basophils # (Manual) APTT POC ABG pCO2 Sodium Chloride Carbon Dioxide BUN Creatinine Glucose POC Glucose 268 H 259 H 262 H Hemoglobin A1c Calcium Alkaline Phosphatase NT-Pro-B Natriuret Pep Albumin 07/24/18 07/24/18 07/24/18 12:59 13:16 13:59 WBC RBC Hgb Hct RDW Seg Neuts % (Manual) Lymphocytes % (Manual) Seg Neutrophils # Man Lymphocytes # (Manual) Basophils # (Manual) APTT POC ABG pCO2 Sodium 136 L Chloride Carbon Dioxide 19 L BUN 46 H Creatinine 2.0 H Glucose 337 H POC Glucose 359 H 380 H Hemoglobin A1c Calcium 8.1 L Alkaline Phosphatase NT-Pro-B Natriuret Pep Albumin 07/24/18 07/24/18 07/24/18 15:13 16:22 17:09 WBC RBC Hgb Hct RDW Seg Neuts % (Manual) Lymphocytes % (Manual) Seg Neutrophils # Man Lymphocytes # (Manual) Basophils # (Manual) APTT POC ABG pCO2 Sodium Chloride Carbon Dioxide BUN Creatinine Glucose POC Glucose 333 H 311 H 307 H Hemoglobin A1c Calcium Alkaline Phosphatase NT-Pro-B Natriuret Pep Albumin 07/24/18 07/24/18 07/24/18 18:01 19:26 19:39 WBC RBC Hgb Hct RDW Seg Neuts % (Manual) Lymphocytes % (Manual) Seg Neutrophils # Man Lymphocytes # (Manual) Basophils # (Manual) APTT POC ABG pCO2 Sodium Chloride Carbon Dioxide 19 L BUN 51 H Creatinine 2.0 H Glucose 337 H POC Glucose 320 H 353 H Hemoglobin A1c Calcium Alkaline Phosphatase NT-Pro-B Natriuret Pep Albumin 07/24/18 07/24/18 07/24/18 20:11 21:02 22:09 WBC RBC Hgb Hct RDW Seg Neuts % (Manual) Lymphocytes % (Manual) Seg Neutrophils # Man Lymphocytes # (Manual) Basophils # (Manual) APTT POC ABG pCO2 Sodium Chloride Carbon Dioxide BUN Creatinine Glucose POC Glucose 330 H 345 H 301 H Hemoglobin A1c Calcium Alkaline Phosphatase NT-Pro-B Natriuret Pep Albumin 07/24/18 07/25/18 07/25/18 23:13 00:08 01:12 WBC RBC Hgb Hct RDW Seg Neuts % (Manual) Lymphocytes % (Manual) Seg Neutrophils # Man Lymphocytes # (Manual) Basophils # (Manual) APTT POC ABG pCO2 Sodium Chloride 109.4 H Carbon Dioxide 18 L BUN 51 H Creatinine 1.9 H Glucose 309 H POC Glucose 257 H 192 H Hemoglobin A1c Calcium Alkaline Phosphatase NT-Pro-B Natriuret Pep Albumin 07/25/18 07/25/18 07/25/18 01:22 02:06 03:01 WBC RBC Hgb Hct RDW Seg Neuts % (Manual) Lymphocytes % (Manual) Seg Neutrophils # Man Lymphocytes # (Manual) Basophils # (Manual) APTT POC ABG pCO2 Sodium Chloride Carbon Dioxide BUN Creatinine Glucose POC Glucose 168 H 146 H 120 H Hemoglobin A1c Calcium Alkaline Phosphatase NT-Pro-B Natriuret Pep Albumin 07/25/18 07/25/18 07/25/18 04:11 04:14 05:13 WBC RBC Hgb Hct RDW Seg Neuts % (Manual) Lymphocytes % (Manual) Seg Neutrophils # Man Lymphocytes # (Manual) Basophils # (Manual) APTT POC ABG pCO2 Sodium Chloride Carbon Dioxide 21 L BUN 52 H Creatinine 1.8 H Glucose 121 H POC Glucose 121 H 136 H Hemoglobin A1c Calcium 8.2 L Alkaline Phosphatase NT-Pro-B Natriuret Pep Albumin 07/25/18 07/25/18 07/25/18 06:04 06:49 07:53 WBC RBC Hgb Hct RDW Seg Neuts % (Manual) Lymphocytes % (Manual) Seg Neutrophils # Man Lymphocytes # (Manual) Basophils # (Manual) APTT POC ABG pCO2 Sodium Chloride Carbon Dioxide BUN Creatinine Glucose POC Glucose 138 H 156 H 225 H Hemoglobin A1c Calcium Alkaline Phosphatase NT-Pro-B Natriuret Pep Albumin 07/25/18 07/25/1819 09:38 11:29 16:55 WBC RBC Hgb Hct RDW Seg Neuts % (Manual) Lymphocytes % (Manual) Seg Neutrophils # Man Lymphocytes # (Manual) Basophils # (Manual) APTT POC ABG pCO2 Sodium Chloride Carbon Dioxide 20 L BUN 50 H Creatinine 1.8 H Glucose 266 H POC Glucose 334 H 478 H Hemoglobin A1c Calcium 8.1 L Alkaline Phosphatase NT-Pro-B Natriuret Pep Albumin 07/25/18 07/25/18 07/25/18 17:33 17:56 19:10 WBC RBC Hgb Hct RDW Seg Neuts % (Manual) Lymphocytes % (Manual) Seg Neutrophils # Man Lymphocytes # (Manual) Basophils # (Manual) APTT POC ABG pCO2 Sodium 136 L Chloride Carbon Dioxide 19 L 19 L BUN 56 H 55 H Creatinine 1.9 H 1.9 H Glucose 462 H 553 H* POC Glucose 462 H Hemoglobin A1c Calcium 8.1 L Alkaline Phosphatase NT-Pro-B Natriuret Pep Albumin 07/25/18 07/25/18 07/25/18 19:30 20:34 21:14 WBC RBC Hgb Hct RDW Seg Neuts % (Manual) Lymphocytes % (Manual) Seg Neutrophils # Man Lymphocytes # (Manual) Basophils # (Manual) APTT POC ABG pCO2 Sodium Chloride Carbon Dioxide BUN Creatinine Glucose POC Glucose > 500 H > 500 H 493 H Hemoglobin A1c Calcium Alkaline Phosphatase NT-Pro-B Natriuret Pep Albumin 07/25/18 07/25/18 07/25/18 22:00 22:09 23:02 WBC RBC Hgb Hct RDW Seg Neuts % (Manual) Lymphocytes % (Manual) Seg Neutrophils # Man Lymphocytes # (Manual) Basophils # (Manual) APTT POC ABG pCO2 Sodium Chloride Carbon Dioxide BUN Creatinine Glucose POC Glucose > 500 H 457 H 435 H Hemoglobin A1c Calcium Alkaline Phosphatase NT-Pro-B Natriuret Pep Albumin 07/25/18 07/26/18 07/26/18 23:15 00:09 00:54 WBC RBC Hgb Hct RDW Seg Neuts % (Manual) Lymphocytes % (Manual) Seg Neutrophils # Man Lymphocytes # (Manual) Basophils # (Manual) APTT POC ABG pCO2 Sodium Chloride Carbon Dioxide 21 L BUN 58 H Creatinine 1.9 H Glucose 393 H POC Glucose 317 H 288 H Hemoglobin A1c Calcium Alkaline Phosphatase NT-Pro-B Natriuret Pep Albumin 07/26/18 07/26/18 07/26/18 01:13 02:10 02:51 WBC RBC Hgb Hct RDW Seg Neuts % (Manual) Lymphocytes % (Manual) Seg Neutrophils # Man Lymphocytes # (Manual) Basophils # (Manual) APTT POC ABG pCO2 Sodium Chloride Carbon Dioxide 18 L BUN 58 H Creatinine 1.8 H Glucose 231 H POC Glucose 205 H 187 H Hemoglobin A1c Calcium Alkaline Phosphatase NT-Pro-B Natriuret Pep Albumin 07/26/18 07/26/18 07/26/18 04:11 05:02 06:17 WBC RBC Hgb Hct RDW Seg Neuts % (Manual) Lymphocytes % (Manual) Seg Neutrophils # Man Lymphocytes # (Manual) Basophils # (Manual) APTT POC ABG pCO2 Sodium Chloride Carbon Dioxide BUN Creatinine Glucose POC Glucose 253 H 166 H 150 H Hemoglobin A1c Calcium Alkaline Phosphatase NT-Pro-B Natriuret Pep Albumin 07/26/18 07/26/18 07/26/18 06:53 08:06 09:07 WBC RBC Hgb Hct RDW Seg Neuts % (Manual) Lymphocytes % (Manual) Seg Neutrophils # Man Lymphocytes # (Manual) Basophils # (Manual) APTT POC ABG pCO2 Sodium Chloride Carbon Dioxide BUN Creatinine Glucose POC Glucose 187 H 142 H 168 H Hemoglobin A1c Calcium Alkaline Phosphatase NT-Pro-B Natriuret Pep Albumin 07/26/18 07/26/18 07/26/18 09:42 12:08 16:08 WBC RBC Hgb Hct RDW Seg Neuts % (Manual) Lymphocytes % (Manual) Seg Neutrophils # Man Lymphocytes # (Manual) Basophils # (Manual) APTT POC ABG pCO2 Sodium Chloride Carbon Dioxide BUN 50 H Creatinine 1.7 H Glucose 153 H POC Glucose 206 H 196 H Hemoglobin A1c Calcium 7.6 L Alkaline Phosphatase NT-Pro-B Natriuret Pep Albumin 07/26/18 07/26/18 07/27/18 16:46 22:26 07:56 WBC RBC Hgb Hct RDW Seg Neuts % (Manual) Lymphocytes % (Manual) Seg Neutrophils # Man Lymphocytes # (Manual) Basophils # (Manual) APTT POC ABG pCO2 Sodium Chloride Carbon Dioxide BUN 54 H Creatinine 2.1 H Glucose 205 H POC Glucose 337 H 53 L Hemoglobin A1c Calcium 7.6 L Alkaline Phosphatase NT-Pro-B Natriuret Pep Albumin Chest x-ray: image reviewed Allied health notes reviewed: RT
[2018-07-27] MEDS: SODIUM CHLORIDE FLUSH SYRINGE 10 ML IV SCH ×3 (12:32→21:31)
[2018-07-27] MEDS: PRAVACHOL PO SCH ×2 (20:32→22:13)
[2018-07-27] MEDS: SINGULAIR PO SCH ×2 (20:32→21:30)
[2018-07-28] MEDS: HEPARIN SUB-Q SCH ×3 (05:25→22:25)
--- NOTE | 2018-07-28 06:56 | Progress Note ---
Assessment and Plan Acute hypoxic respiratory failure, Acute pulmonary edema AE-COPD Morbid obesity Acute renal failure Hyperosmolar hyperglycemic state -NIPPV qhs and prn -Gentle diuresis while monitoring renal function, electrolyte profile and hemodynamics. -Accuchecks with glycemic control, currently on insulin therapy per protocol -goal blood glucose of 140-180 mg/dL -Nutrition consult - continue to wean supplemental oxygen to keep O2 sats > 90% - continue bronchodilators with pulmonary hygiene per RT - Maintenance of sleep -wake cycle - Mobility/PT/OT -VTE prophylaxis - Influenza and pneumonia vaccination per protocol -Follow up CXR in the next 24 hours -Aspiration precautions, keep HOB >40 -Weight loss and life style modifications -Chronic home medications OK to transfer out of the ICU Subjective Date of service: 07/28/18 Interval history: Patient is seen today for: Acute hypoxic respiratory failure, hyperosmolar hyperglycemic state, morbid obesity; pulmonary edema with renal insufficiency Seen and examined at bedside. Vitals, labs, medications, chart and imaging reviewed.; 24hour events reviewed; nursing and respiratory care staff consulted; no adverse overnight events reported to me; She denies any chest pain, no fevers or chills, no abdominal pain, no vomiting She continues to feel better, breathing better, currently on 3L NC, sitting up in a chair out of bed, sub-optimal glycemic control. She apparently had been on a cardiac diet, but not a steady carb diet. Objective Vital Signs - 12hr 07/27/18 07/27/18 07/27/18 19:49 21:34 22:00 Temperature 98.5 F Pulse Rate 75 Pulse Rate [ 98 H Bilateral Throughout] Respiratory 18 Rate Respiratory 18 Rate [Bilateral Throughout] Blood Pressure 145/60 O2 Sat by Pulse 100 97 Oximetry 07/27/18 07/28/18 23:51 03:00 Temperature 98.7 F Pulse Rate 78 74 Pulse Rate [ Bilateral Throughout] Respiratory 16 20 Rate Respiratory Rate [Bilateral Throughout] Blood Pressure 149/98 O2 Sat by Pulse 100 100 Oximetry Constitutional: alert, other (Morbidly Obese, ) Eyes: non-icteric ENT: oropharynx moist, other ([place] 4/4) Neck: supple, no lymphadenopathy, no JVD Effort: mildly labored Ascultation: Bilateral: diminished breath sounds, wheezes (Expiratory wheeze), rales (Basilar) Cardiovascular: regular rate and rhythm, other (S1, S2, no murmurs) Gastrointestinal: normoactive bowel sounds, soft, non-tender Integumentary: normal Extremities: no cyanosis, pulses normal, edema (improving) Neurologic: normal mental status, non-focal exam, pupils equal and round, CN II- XII normal, motor strength normal and Psychiatric: mood appropriate, affect normal CBC and BMP: 07/23/18 04:23 07/26/18 16:46 ABG, PT/INR, D-dimer: ABG POC ABG pH 7.355 (7.35-7.45) 07/22/18 18:22 POC ABG pCO2 34.2 (35-45) L 07/22/18 18:22 POC ABG pO2 100 (80-105) 07/22/18 18:22 POC ABG HCO3 19.1 (22-26 mml/L) 07/22/18 18:22 POC ABG Total CO2 20 (23-27mmol/L) 07/22/18 18:22 POC ABG O2 Sat 98 07/22/18 18:22 PT/INR, D-dimer PT 12.6 Sec. (12.2-14.9) 07/22/18 18:12 INR 0.89 (0.87-1.13) 07/22/18 18:12 Abnormal lab findings: Abnormal Labs 07/22/18 07/22/18 07/22/18 18:12 18:12 18:12 WBC 19.0 H RBC Hgb Hct RDW 17.8 H Seg Neuts % (Manual) 84.0 H Lymphocytes % (Manual) 11.0 L Seg Neutrophils # Man 16.0 H Lymphocytes # (Manual) Basophils # (Manual) 0.2 H APTT 22.0 L POC ABG pCO2 Sodium Chloride Carbon Dioxide 17 L BUN 28 H Creatinine 1.8 H Glucose 409 H POC Glucose Hemoglobin A1c Calcium Alkaline Phosphatase NT-Pro-B Natriuret Pep Albumin 07/22/18 07/22/18 07/22/18 18:19 18:22 19:18 WBC RBC Hgb Hct RDW Seg Neuts % (Manual) Lymphocytes % (Manual) Seg Neutrophils # Man Lymphocytes # (Manual) Basophils # (Manual) APTT POC ABG pCO2 34.2 L Sodium Chloride Carbon Dioxide BUN Creatinine Glucose POC Glucose 356 H Hemoglobin A1c Calcium Alkaline Phosphatase NT-Pro-B Natriuret Pep 1108 H Albumin 07/22/18 07/22/18 07/22/18 20:40 21:02 23:09 WBC RBC Hgb Hct RDW Seg Neuts % (Manual) Lymphocytes % (Manual) Seg Neutrophils # Man Lymphocytes # (Manual) Basophils # (Manual) APTT POC ABG pCO2 Sodium Chloride Carbon Dioxide BUN Creatinine Glucose POC Glucose 422 H 440 H Hemoglobin A1c 12.1 H Calcium Alkaline Phosphatase NT-Pro-B Natriuret Pep Albumin 07/23/18 07/23/18 07/23/18 04:23 04:23 09:08 WBC 14.3 H RBC 3.52 L Hgb 9.9 L Hct 29.8 L RDW 17.2 H Seg Neuts % (Manual) 92.0 H Lymphocytes % (Manual) 5.0 L Seg Neutrophils # Man 13.2 H Lymphocytes # (Manual) 0.7 L Basophils # (Manual) APTT POC ABG pCO2 Sodium Chloride Carbon Dioxide 19 L BUN 33 H Creatinine 1.9 H Glucose 472 H POC Glucose 463 H Hemoglobin A1c Calcium Alkaline Phosphatase 183 H NT-Pro-B Natriuret Pep Albumin 3.0 L 07/23/18 07/23/18 07/23/18 13:40 17:08 21:23 WBC RBC Hgb Hct RDW Seg Neuts % (Manual) Lymphocytes % (Manual) Seg Neutrophils # Man Lymphocytes # (Manual) Basophils # (Manual) APTT POC ABG pCO2 Sodium Chloride Carbon Dioxide BUN Creatinine Glucose POC Glucose > 500 H > 500 H > 500 H Hemoglobin A1c Calcium Alkaline Phosphatase NT-Pro-B Natriuret Pep Albumin 07/24/18 07/24/18 07/24/18 00:59 01:07 04:26 WBC RBC Hgb Hct RDW Seg Neuts % (Manual) Lymphocytes % (Manual) Seg Neutrophils # Man Lymphocytes # (Manual) Basophils # (Manual) APTT POC ABG pCO2 Sodium Chloride Carbon Dioxide BUN Creatinine Glucose 761 H* POC Glucose > 500 H > 500 H Hemoglobin A1c Calcium Alkaline Phosphatase NT-Pro-B Natriuret Pep Albumin 07/24/18 07/24/18 07/24/18 04:27 05:18 05:28 WBC RBC Hgb Hct RDW Seg Neuts % (Manual) Lymphocytes % (Manual) Seg Neutrophils # Man Lymphocytes # (Manual) Basophils # (Manual) APTT POC ABG pCO2 Sodium 134 L 136 L Chloride Carbon Dioxide 20 L 18 L BUN 41 H 41 H Creatinine 1.9 H 1.9 H Glucose 614 H* 548 H* POC Glucose > 500 H Hemoglobin A1c Calcium Alkaline Phosphatase NT-Pro-B Natriuret Pep Albumin 07/24/18 07/24/18 07/24/18 06:41 07:08 08:06 WBC RBC Hgb Hct RDW Seg Neuts % (Manual) Lymphocytes % (Manual) Seg Neutrophils # Man Lymphocytes # (Manual) Basophils # (Manual) APTT POC ABG pCO2 Sodium Chloride Carbon Dioxide 19 L BUN 41 H Creatinine 2.0 H Glucose 320 H POC Glucose 409 H 227 H Hemoglobin A1c Calcium 8.3 L Alkaline Phosphatase NT-Pro-B Natriuret Pep Albumin 07/24/18 07/24/18 07/24/18 09:37 10:26 11:01 WBC RBC Hgb Hct RDW Seg Neuts % (Manual) Lymphocytes % (Manual) Seg Neutrophils # Man Lymphocytes # (Manual) Basophils # (Manual) APTT POC ABG pCO2 Sodium Chloride Carbon Dioxide 20 L BUN 43 H Creatinine 1.9 H Glucose 199 H POC Glucose 144 H 237 H Hemoglobin A1c Calcium 8.3 L Alkaline Phosphatase NT-Pro-B Natriuret Pep Albumin 07/24/18 07/24/18 07/24/18 11:36 11:51 12:07 WBC RBC Hgb Hct RDW Seg Neuts % (Manual) Lymphocytes % (Manual) Seg Neutrophils # Man Lymphocytes # (Manual) Basophils # (Manual) APTT POC ABG pCO2 Sodium Chloride Carbon Dioxide BUN Creatinine Glucose POC Glucose 268 H 259 H 262 H Hemoglobin A1c Calcium Alkaline Phosphatase NT-Pro-B Natriuret Pep Albumin 07/24/18 07/24/18 07/24/18 12:59 13:16 13:59 WBC RBC Hgb Hct RDW Seg Neuts % (Manual) Lymphocytes % (Manual) Seg Neutrophils # Man Lymphocytes # (Manual) Basophils # (Manual) APTT POC ABG pCO2 Sodium 136 L Chloride Carbon Dioxide 19 L BUN 46 H Creatinine 2.0 H Glucose 337 H POC Glucose 359 H 380 H Hemoglobin A1c Calcium 8.1 L Alkaline Phosphatase NT-Pro-B Natriuret Pep Albumin 07/24/18 07/24/18 07/24/18 15:13 16:22 17:09 WBC RBC Hgb Hct RDW Seg Neuts % (Manual) Lymphocytes % (Manual) Seg Neutrophils # Man Lymphocytes # (Manual) Basophils # (Manual) APTT POC ABG pCO2 Sodium Chloride Carbon Dioxide BUN Creatinine Glucose POC Glucose 333 H 311 H 307 H Hemoglobin A1c Calcium Alkaline Phosphatase NT-Pro-B Natriuret Pep Albumin 07/24/18 07/24/18 07/24/18 18:01 19:26 19:39 WBC RBC Hgb Hct RDW Seg Neuts % (Manual) Lymphocytes % (Manual) Seg Neutrophils # Man Lymphocytes # (Manual) Basophils # (Manual) APTT POC ABG pCO2 Sodium Chloride Carbon Dioxide 19 L BUN 51 H Creatinine 2.0 H Glucose 337 H POC Glucose 320 H 353 H Hemoglobin A1c Calcium Alkaline Phosphatase NT-Pro-B Natriuret Pep Albumin 07/24/18 07/24/18 07/24/18 20:11 21:02 22:09 WBC RBC Hgb Hct RDW Seg Neuts % (Manual) Lymphocytes % (Manual) Seg Neutrophils # Man Lymphocytes # (Manual) Basophils # (Manual) APTT POC ABG pCO2 Sodium Chloride Carbon Dioxide BUN Creatinine Glucose POC Glucose 330 H 345 H 301 H Hemoglobin A1c Calcium Alkaline Phosphatase NT-Pro-B Natriuret Pep Albumin 07/24/18 07/25/18 07/25/18 23:13 00:08 01:12 WBC RBC Hgb Hct RDW Seg Neuts % (Manual) Lymphocytes % (Manual) Seg Neutrophils # Man Lymphocytes # (Manual) Basophils # (Manual) APTT POC ABG pCO2 Sodium Chloride 109.4 H Carbon Dioxide 18 L BUN 51 H Creatinine 1.9 H Glucose 309 H POC Glucose 257 H 192 H Hemoglobin A1c Calcium Alkaline Phosphatase NT-Pro-B Natriuret Pep Albumin 07/25/18 07/25/18 07/25/18 01:22 02:06 03:01 WBC RBC Hgb Hct RDW Seg Neuts % (Manual) Lymphocytes % (Manual) Seg Neutrophils # Man Lymphocytes # (Manual) Basophils # (Manual) APTT POC ABG pCO2 Sodium Chloride Carbon Dioxide BUN Creatinine Glucose POC Glucose 168 H 146 H 120 H Hemoglobin A1c Calcium Alkaline Phosphatase NT-Pro-B Natriuret Pep Albumin 07/25/18 07/25/18 07/25/18 04:11 04:14 05:13 WBC RBC Hgb Hct RDW Seg Neuts % (Manual) Lymphocytes % (Manual) Seg Neutrophils # Man Lymphocytes # (Manual) Basophils # (Manual) APTT POC ABG pCO2 Sodium Chloride Carbon Dioxide 21 L BUN 52 H Creatinine 1.8 H Glucose 121 H POC Glucose 121 H 136 H Hemoglobin A1c Calcium 8.2 L Alkaline Phosphatase NT-Pro-B Natriuret Pep Albumin 07/25/18 07/25/18 07/25/18 06:04 06:49 07:53 WBC RBC Hgb Hct RDW Seg Neuts % (Manual) Lymphocytes % (Manual) Seg Neutrophils # Man Lymphocytes # (Manual) Basophils # (Manual) APTT POC ABG pCO2 Sodium Chloride Carbon Dioxide BUN Creatinine Glucose POC Glucose 138 H 156 H 225 H Hemoglobin A1c Calcium Alkaline Phosphatase NT-Pro-B Natriuret Pep Albumin 07/25/18 07/25/18 07/25/18 09:38 11:29 16:55 WBC RBC Hgb Hct RDW Seg Neuts % (Manual) Lymphocytes % (Manual) Seg Neutrophils # Man Lymphocytes # (Manual) Basophils # (Manual) APTT POC ABG pCO2 Sodium Chloride Carbon Dioxide 20 L BUN 50 H Creatinine 1.8 H Glucose 266 H POC Glucose 334 H 478 H Hemoglobin A1c Calcium 8.1 L Alkaline Phosphatase NT-Pro-B Natriuret Pep Albumin 07/25/18 07/25/18 07/25/18 17:33 17:56 19:10 WBC RBC Hgb Hct RDW Seg Neuts % (Manual) Lymphocytes % (Manual) Seg Neutrophils # Man Lymphocytes # (Manual) Basophils # (Manual) APTT POC ABG pCO2 Sodium 136 L Chloride Carbon Dioxide 19 L 19 L BUN 56 H 55 H Creatinine 1.9 H 1.9 H Glucose 462 H 553 H* POC Glucose 462 H Hemoglobin A1c Calcium 8.1 L Alkaline Phosphatase NT-Pro-B Natriuret Pep Albumin 07/25/18 07/25/18 07/25/18 19:30 20:34 21:14 WBC RBC Hgb Hct RDW Seg Neuts % (Manual) Lymphocytes % (Manual) Seg Neutrophils # Man Lymphocytes # (Manual) Basophils # (Manual) APTT POC ABG pCO2 Sodium Chloride Carbon Dioxide BUN Creatinine Glucose POC Glucose > 500 H > 500 H 493 H Hemoglobin A1c Calcium Alkaline Phosphatase NT-Pro-B Natriuret Pep Albumin 07/25/18 07/25/18 07/25/18 22:00 22:09 23:02 WBC RBC Hgb Hct RDW Seg Neuts % (Manual) Lymphocytes % (Manual) Seg Neutrophils # Man Lymphocytes # (Manual) Basophils # (Manual) APTT POC ABG pCO2 Sodium Chloride Carbon Dioxide BUN Creatinine Glucose POC Glucose > 500 H 457 H 435 H Hemoglobin A1c Calcium Alkaline Phosphatase NT-Pro-B Natriuret Pep Albumin 07/25/18 07/26/18 07/26/18 23:15 00:09 00:54 WBC RBC Hgb Hct RDW Seg Neuts % (Manual) Lymphocytes % (Manual) Seg Neutrophils # Man Lymphocytes # (Manual) Basophils # (Manual) APTT POC ABG pCO2 Sodium Chloride Carbon Dioxide 21 L BUN 58 H Creatinine 1.9 H Glucose 393 H POC Glucose 317 H 288 H Hemoglobin A1c Calcium Alkaline Phosphatase NT-Pro-B Natriuret Pep Albumin 07/26/18 07/26/18 07/26/18 01:13 02:10 02:51 WBC RBC Hgb Hct RDW Seg Neuts % (Manual) Lymphocytes % (Manual) Seg Neutrophils # Man Lymphocytes # (Manual) Basophils # (Manual) APTT POC ABG pCO2 Sodium Chloride Carbon Dioxide 18 L BUN 58 H Creatinine 1.8 H Glucose 231 H POC Glucose 205 H 187 H Hemoglobin A1c Calcium Alkaline Phosphatase NT-Pro-B Natriuret Pep Albumin 07/26/18 07/26/18 07/26/18 04:11 05:02 06:17 WBC RBC Hgb Hct RDW Seg Neuts % (Manual) Lymphocytes % (Manual) Seg Neutrophils # Man Lymphocytes # (Manual) Basophils # (Manual) APTT POC ABG pCO2 Sodium Chloride Carbon Dioxide BUN Creatinine Glucose POC Glucose 253 H 166 H 150 H Hemoglobin A1c Calcium Alkaline Phosphatase NT-Pro-B Natriuret Pep Albumin 07/26/18 07/26/18 07/26/18 06:53 08:06 09:07 WBC RBC Hgb Hct RDW Seg Neuts % (Manual) Lymphocytes % (Manual) Seg Neutrophils # Man Lymphocytes # (Manual) Basophils # (Manual) APTT POC ABG pCO2 Sodium Chloride Carbon Dioxide BUN Creatinine Glucose POC Glucose 187 H 142 H 168 H Hemoglobin A1c Calcium Alkaline Phosphatase NT-Pro-B Natriuret Pep Albumin 07/26/18 07/26/18 07/26/18 09:42 12:08 16:08 WBC RBC Hgb Hct RDW Seg Neuts % (Manual) Lymphocytes % (Manual) Seg Neutrophils # Man Lymphocytes # (Manual) Basophils # (Manual) APTT POC ABG pCO2 Sodium Chloride Carbon Dioxide BUN 50 H Creatinine 1.7 H Glucose 153 H POC Glucose 206 H 196 H Hemoglobin A1c Calcium 7.6 L Alkaline Phosphatase NT-Pro-B Natriuret Pep Albumin 07/26/18 07/26/18 07/27/18 16:46 22:26 07:56 WBC RBC Hgb Hct RDW Seg Neuts % (Manual) Lymphocytes % (Manual) Seg Neutrophils # Man Lymphocytes # (Manual) Basophils # (Manual) APTT POC ABG pCO2 Sodium Chloride Carbon Dioxide BUN 54 H Creatinine 2.1 H Glucose 205 H POC Glucose 337 H 53 L Hemoglobin A1c Calcium 7.6 L Alkaline Phosphatase NT-Pro-B Natriuret Pep Albumin 07/27/18 07/27/18 07/27/18 11:36 16:10 21:22 WBC RBC Hgb Hct RDW Seg Neuts % (Manual) Lymphocytes % (Manual) Seg Neutrophils # Man Lymphocytes # (Manual) Basophils # (Manual) APTT POC ABG pCO2 Sodium Chloride Carbon Dioxide BUN Creatinine Glucose POC Glucose 151 H 191 H 321 H Hemoglobin A1c Calcium Alkaline Phosphatase NT-Pro-B Natriuret Pep Albumin Allied health notes reviewed: RT
[2018-07-28] MEDS: PULMICORT IH SCH ×2 (08:07→22:26)
[2018-07-28] MEDS: BROVANA NEBU IH SCH ×2 (08:07→22:26)
[2018-07-28] MEDS: DUONEB *Not for PRN Use IH SCH ×4 (08:10→22:26)
[2018-07-28] MEDS: HumaLOG SUB-Q SCH ×7 (08:30→22:26)
[2018-07-28] MEDS: HCTZ PO SCH (10:05)
[2018-07-28] MEDS: NEURONTIN PO SCH ×2 (10:05→22:24)
[2018-07-28] MEDS: SODIUM CHLORIDE FLUSH SYRINGE 10 ML IV SCH ×2 (10:11→22:27)
[2018-07-28] MEDS: ZESTRIL PO SCH (10:11)
--- NOTE | 2018-07-28 12:25 | Progress Note ---
Assessment and Plan Assessment and plan: History of present illness: 72 years old female with history of COPD and asthma presented to the ER via EMS in acute respiratory distress, found to have hypoxia. Past Medical History Hypertension, DM, gerd, OA, asthma, copd, osteoporosis, hld Acute respiratory failure with hypoxia cont oxygen HHNK exacerbated due to steroids cont insulin drip COPD exacerbation cont steroids, nebs, chest PT, pulmonology input appreciated Hypertension Continue antihypertensives uncontrolled Insulin dependent diabetes mellitus, w persistent hyperglycemia optimize insulins CKD stage 3 avoid nephrotoxins Hyperlipidemia Continue statins Peripheral neuropathy Continue gabapentin DVT prophylaxis Continue Lovenox and GI prophylaxis Critical care time 35 minutes History Interval history: Review of systems Constitutional: No fevers, no malaise, no joint pains CVS: No chest pain, no orthopnea, no dyspnea on exertion, no pedal edema GI: No abdominal pain, no diarrhea, no vomiting, no constipation Respiratory: Complaining of shortness of breath and wheezing Hospitalist Physical - Physical exam Narrative exam: General.: Appears well, no distress, nontoxic HEENT: Moist mucous membranes, extraocular muscles intact, no lymphadenopathy Neck: supple Cardiac: S1-S2 heard Lungs: Poor air entry and wheezing Abdomen: soft , nontender, nondistended, bowel sounds positive Extremities: no edema clubbing or cyanosis Skin: no rash or lesions Neurologic: no gross focal deficits Psych: calm, and cooperative - Constitutional Vitals: Temp Pulse Resp BP Pulse Ox 99.2 F 77 18 110/49 98 07/28/18 07:18 07/28/18 10:11 07/28/18 08:16 07/28/18 10:11 07/28/18 10:09 General appearance: Present: severe distress Results - Labs CBC & Chem 7: 07/23/18 04:23 07/26/18 16:46 Labs: Laboratory Last Values WBC 14.3 K/mm3 (4.5-11.0) H 07/23/18 04:23 RBC 3.52 M/mm3 (3.65-5.03) L 07/23/18 04:23 Hgb 9.9 gm/dl (10.1-14.3) L 07/23/18 04:23 Hct 29.8 % (30.3-42.9) L 07/23/18 04:23 MCV 85 fl (79-97) 07/23/18 04:23 MCH 28 pg (28-32) 07/23/18 04:23 MCHC 33 % (30-34) 07/23/18 04:23 RDW 17.2 % (13.2-15.2) H 07/23/18 04:23 Plt Count 206 K/mm3 (140-440) 07/23/18 04:23 Add Manual Diff Complete 07/23/18 04:23 Total Counted 100 07/23/18 04:23 Seg Neutrophils % Barrelhead Inspector 07/23/18 04:23 Seg Neuts % (Manual) 92.0 % (40.0-70.0) H 07/23/18 04:23 0 % 07/23/18 04:23 5.0 % (13.4-35.0) L 07/23/18 04:23 Reactive Lymphs % (Man) 0 % 07/23/18 04:23 3.0 % (0.0-7.3) 07/23/18 04:23 0 % (0.0-4.3) 07/23/18 04:23 0 % (0.0-1.8) 07/23/18 04:23 0 % 07/23/18 04:23 0 % 07/23/18 04:23 0 % 07/23/18 04:23 0 % 07/23/18 04:23 Nucleated RBC % Not Reportable 07/23/18 04:23 Seg Neutrophils # Man 13.2 K/mm3 (1.8-7.7) H 07/23/18 04:23 Band Neutrophils # 0.0 K/mm3 07/23/18 04:23 0.7 K/mm3 (1.2-5.4) L 07/23/18 04:23 Abs React Lymphs (Man) 0.0 K/mm3 07/23/18 04:23 0.4 K/mm3 (0.0-0.8) 07/23/18 04:23 0.0 K/mm3 (0.0-0.4) 07/23/18 04:23 0.0 K/mm3 (0.0-0.1) 07/23/18 04:23 0.0 K/mm3 07/23/18 04:23 0.0 K/mm3 07/23/18 04:23 0.0 K/mm3 07/23/18 04:23 Blast Cells # 0.0 K/mm3 07/23/18 04:23 WBC Morphology Not Reportable 07/23/18 04:23 Hypersegmented Neuts Not Reportable 07/23/18 04:23 Hyposegmented Neuts Not Reportable 07/23/18 04:23 Hypogranular Neuts Not Reportable 07/23/18 04:23 Not Reportable 07/23/18 04:23 Not Reportable 07/23/18 04:23 Not Reportable 07/23/18 04:23 Not Reportable 07/23/18 04:23 Not Reportable 07/23/18 04:23 Not Reportable 07/23/18 04:23 Not Reportable 07/23/18 04:23 1+ 07/23/18 04:23 Plt Clumps, EDTA Not Reportable 07/23/18 04:23 Not Reportable 07/23/18 04:23 Not Reportable 07/23/18 04:23 Not Reportable 07/23/18 04:23 Plt Morphology Comment Not Reportable 07/23/18 04:23 RBC Morphology Normal 07/23/18 04:23 Dimorphic RBCs Not Reportable 07/23/18 04:23 Not Reportable 07/23/18 04:23 Not Reportable 07/23/18 04:23 Not Reportable 07/23/18 04:23 Not Reportable 07/23/18 04:23 Not Reportable 07/23/18 04:23 Not Reportable 07/23/18 04:23 Not Reportable 07/23/18 04:23 Not Reportable 07/23/18 04:23 Not Reportable 07/23/18 04:23 Not Reportable 07/23/18 04:23 Not Reportable 07/23/18 04:23 Not Reportable 07/23/18 04:23 Not Reportable 07/23/18 04:23 Not Reportable 07/23/18 04:23 Not Reportable 07/23/18 04:23 Not Reportable 07/23/18 04:23 Not Reportable 07/23/18 04:23 Not Reportable 07/23/18 04:23 Not Reportable 07/23/18 04:23 Acanthocytes (Spur) Not Reportable 07/23/18 04:23 Rouleaux Not Reportable 07/23/18 04:23 Not Reportable 07/23/18 04:23 Not Reportable 07/23/18 04:23 Not Reportable 07/23/18 04:23 Not Reportable 07/23/18 04:23 Hem Pathologist Commnt No 07/23/18 04:23 PT 12.6 Sec. (12.2-14.9) 07/22/18 18:12 INR 0.89 (0.87-1.13) 07/22/18 18:12 APTT 22.0 Sec. (24.2-36.6) L 07/22/18 18:12 POC ABG pH 7.355 (7.35-7.45) 07/22/18 18:22 POC ABG pCO2 34.2 (35-45) L 07/22/18 18:22 POC ABG pO2 100 (80-105) 07/22/18 18:22 POC ABG HCO3 19.1 (22-26 mml/L) 07/22/18 18:22 POC ABG Total CO2 20 (23-27mmol/L) 07/22/18 18:22 POC ABG O2 Sat 98 07/22/18 18:22 POC ABG Base Excess -6 ((-2) - (+3)mmol/L) 07/22/18 18:22 100 % 07/22/18 18:22 Sodium 142 mmol/L (137-145) 07/26/18 16:46 Potassium 4.1 mmol/L (3.6-5.0) 07/26/18 16:46 Chloride 104.0 mmol/L (98-107) 07/26/18 16:46 Carbon Dioxide 22 mmol/L (22-30) 07/26/18 16:46 20 mmol/L 07/26/18 16:46 BUN 54 mg/dL (7-17) H 07/26/18 16:46 2.1 mg/dL (0.7-1.2) H 07/26/18 16:46 Estimated GFR 28 ml/min 07/26/18 16:46 26 % 07/26/18 16:46 Glucose 205 mg/dL (65-100) H 07/26/18 16:46 POC Glucose 152 (70-105) H 07/28/18 11:48 12.1 % (4-6) H 07/22/18 20:40 Lactic Acid 1.50 mmol/L (0.7-2.0) 07/22/18 18:12 Calcium 7.6 mg/dL (8.4-10.2) L 07/26/18 16:46 Phosphorus 4.10 mg/dL (2.5-4.5) D 07/25/18 17:33 Magnesium 2.10 mg/dL (1.7-2.3) 07/25/18 17:33 0.70 mg/dL (0.1-1.2) 07/23/18 04:23 AST 33 units/L (5-40) 07/23/18 04:23 ALT 45 units/L (7-56) 07/23/18 04:23 183 units/L (35-129) H 07/23/18 04:23 < 0.010 ng/mL (0.00-0.029) 07/22/18 20:08 NT-Pro-B Natriuret Pep 1108 pg/mL (0-900) H 07/22/18 19:18 7.0 g/dL (6.3-8.2) 07/23/18 04:23 3.0 g/dL (3.9-5) L 07/23/18 04:23 0.8 % 07/23/18 04:23 Active Medications - Current Medications Current Medications: Generic Name Dose Route Start Last Admin Trade Name Freq PRN Reason Stop Dose Admin Acetaminophen 650 mg 07/22/18 20:27 Tylenol PO Q4H PRN Pain MILD(1-3)/Fever >100.5/SILVESTRE Albuterol 2.5 mg 07/22/18 20:30 Proventil IH Q4HRT PRN Shortness Of Breath Albuterol/Ipratropium 1 ampul 07/23/18 08:00 07/28/18 11:44 Duoneb *Not For Prn Use* IH Not Given QIDRT ABDULAZIZ Arformoterol Tartrate 15 mcg 07/22/18 22:00 07/28/18 08:07 Brovana Nebu IH 15 mcg Q12HRT ABDULAZIZ Administration Budesonide 0.5 mg 07/22/18 22:00 07/28/18 08:07 Pulmicort IH 0.5 mg Q12HRT BADULAZIZ Administration Dextrose 0 ml 07/25/18 17:28 07/27/18 08:02 D50w (25gm) Syringe IV 20 ml ONCE PRN Administration Hypoglycemia Gabapentin 300 mg 07/22/18 22:00 07/28/18 10:05 Neurontin PO 300 mg BID ABDULAZIZ Administration Heparin Sodium (Porcine) 5,000 unit 07/24/18 14:00 07/28/18 05:25 Heparin SUB-Q 5,000 unit Q8HR ABDULAZIZ Administration Hydrochlorothiazide 25 mg 07/22/18 21:00 07/28/18 10:05 Hctz PO 25 mg DAILY ABDULAZIZ Administration Hydromorphone HCl 0.25 mg 07/22/18 20:27 Dilaudid IV Q3H PRN Pain, Moderate (4-6) Insulin Glargine 10 units 07/27/18 22:00 07/27/18 22:13 Lantus SUB-Q 10 units QHS ABDULAZIZ Administration Insulin Human Lispro 0 unit 07/25/18 11:30 07/28/18 08:30 Humalog SUB-Q Not Given [facility] Protocol Insulin Human Lispro 3 unit 07/27/18 11:34 07/27/18 16:28 Humalog SUB-Q 3 unit AC ABDULAZIZ Administration Lisinopril 40 mg 07/22/18 21:00 07/28/18 10:11 Zestril PO Not Given QDAY ABDULAZIZ Montelukast Sodium 10 mg 07/22/18 21:00 07/27/18 21:30 Singulair PO 10 mg QHS ABDULAZIZ Administration Ondansetron HCl 4 mg 07/22/18 20:27 Zofran IV Q8H PRN Nausea And Vomiting Pravastatin Sodium 80 mg 07/22/18 22:00 07/27/18 22:13 Pravachol PO 80 mg QHS ABDULAZIZ Administration Sodium Chloride 10 ml 07/22/18 22:00 07/28/18 10:11 Sodium Chloride Flush Syringe 10 Ml IV 10 ml BID ABDULAZIZ Administration Sodium Chloride 10 ml 07/22/18 20:27 07/23/18 06:24 Sodium Chloride Flush Syringe 10 Ml IV 10 ml PRN PRN Administration LINE FLUSH Nutrition/Malnutrition Assess - Dietary Evaluation Nutrition/Malnutrition Findings: Nutrition Notes Start: 07/26/18 16:14 Freq: Status: Active Protocol: Document 07/27/18 17:02 RM (Rec: 07/27/18 17:03 RM [id number]) Nutrition Notes Need for Assessment generated from: LOS Initial or Follow up Brief Note Height 5 ft 1 in Weight 109.4 kg [place] Body Weight (kg) 47.72 BMI 45.6 Subjective/Other Information Screened for LOS. Pt stated that her appetite is good and that she eats all of her meals. Nutrition Intervention Revisit per MD consult or patient Sign Off request:
--- NOTE | 2018-07-28 12:25 | Progress Note ---
Assessment and Plan Assessment and plan: History of present illness: 72 years old female with history of COPD and asthma presented to the ER via EMS in acute respiratory distress, found to have hypoxia. Past Medical History Hypertension, DM, gerd, OA, asthma, copd, osteoporosis, hld Acute respiratory failure with hypoxia cont oxygen HHNK exacerbated due to steroids cont insulin drip COPD exacerbation cont steroids, nebs, chest PT, pulmonology input appreciated, bipap prn Hypertension Continue antihypertensives uncontrolled Insulin dependent diabetes mellitus, w persistent hyperglycemia optimize insulins CKD stage 3 avoid nephrotoxins Hyperlipidemia Continue statins Peripheral neuropathy Continue gabapentin DVT prophylaxis Continue Lovenox and GI prophylaxis Critical care time 35 minutes History Interval history: Review of systems Constitutional: No fevers, no malaise, no joint pains CVS: No chest pain, no orthopnea, no dyspnea on exertion, no pedal edema GI: No abdominal pain, no diarrhea, no vomiting, no constipation Respiratory: Complaining of shortness of breath and wheezing Hospitalist Physical - Physical exam Narrative exam: General.: Appears well, no distress, nontoxic HEENT: Moist mucous membranes, extraocular muscles intact, no lymphadenopathy Neck: supple Cardiac: S1-S2 heard Lungs: Poor air entry and wheezing Abdomen: soft , nontender, nondistended, bowel sounds positive Extremities: no edema clubbing or cyanosis Skin: no rash or lesions Neurologic: no gross focal deficits Psych: calm, and cooperative - Constitutional Vitals: Temp Pulse Resp BP Pulse Ox 99.2 F 77 18 110/49 98 07/28/18 07:18 07/28/18 10:11 07/28/18 08:16 07/28/18 10:11 07/28/18 10:09 General appearance: Present: severe distress Results - Labs CBC & Chem 7: 07/23/18 04:23 07/26/18 16:46 Labs: Laboratory Last Values WBC 14.3 K/mm3 (4.5-11.0) H 07/23/18 04:23 RBC 3.52 M/mm3 (3.65-5.03) L 07/23/18 04:23 Hgb 9.9 gm/dl (10.1-14.3) L 07/23/18 04:23 Hct 29.8 % (30.3-42.9) L 07/23/18 04:23 MCV 85 fl (79-97) 07/23/18 04:23 MCH 28 pg (28-32) 07/23/18 04:23 MCHC 33 % (30-34) 07/23/18 04:23 RDW 17.2 % (13.2-15.2) H 07/23/18 04:23 Plt Count 206 K/mm3 (140-440) 07/23/18 04:23 Add Manual Diff Complete 07/23/18 04:23 Total Counted 100 07/23/18 04:23 Seg Neutrophils % [employer] 07/23/18 04:23 Seg Neuts % (Manual) 92.0 % (40.0-70.0) H 07/23/18 04:23 0 % 07/23/18 04:23 5.0 % (13.4-35.0) L 07/23/18 04:23 Reactive Lymphs % (Man) 0 % 07/23/18 04:23 3.0 % (0.0-7.3) 07/23/18 04:23 0 % (0.0-4.3) 07/23/18 04:23 0 % (0.0-1.8) 07/23/18 04:23 0 % 07/23/18 04:23 0 % 07/23/18 04:23 0 % 07/23/18 04:23 0 % 07/23/18 04:23 Nucleated RBC % Not Reportable 07/23/18 04:23 Seg Neutrophils # Man 13.2 K/mm3 (1.8-7.7) H 07/23/18 04:23 Band Neutrophils # 0.0 K/mm3 07/23/18 04:23 0.7 K/mm3 (1.2-5.4) L 07/23/18 04:23 Abs React Lymphs (Man) 0.0 K/mm3 07/23/18 04:23 0.4 K/mm3 (0.0-0.8) 07/23/18 04:23 0.0 K/mm3 (0.0-0.4) 07/23/18 04:23 0.0 K/mm3 (0.0-0.1) 07/23/18 04:23 0.0 K/mm3 07/23/18 04:23 0.0 K/mm3 07/23/18 04:23 0.0 K/mm3 07/23/18 04:23 Blast Cells # 0.0 K/mm3 07/23/18 04:23 WBC Morphology Not Reportable 07/23/18 04:23 Hypersegmented Neuts Not Reportable 07/23/18 04:23 Hyposegmented Neuts Not Reportable 07/23/18 04:23 Hypogranular Neuts Not Reportable 07/23/18 04:23 Not Reportable 07/23/18 04:23 Not Reportable 07/23/18 04:23 Not Reportable 07/23/18 04:23 Not Reportable 07/23/18 04:23 Not Reportable 07/23/18 04:23 Not Reportable 07/23/18 04:23 Not Reportable 07/23/18 04:23 1+ 07/23/18 04:23 Plt Clumps, EDTA Not Reportable 07/23/18 04:23 Not Reportable 07/23/18 04:23 Not Reportable 07/23/18 04:23 Not Reportable 07/23/18 04:23 Plt Morphology Comment Not Reportable 07/23/18 04:23 RBC Morphology Normal 07/23/18 04:23 Dimorphic RBCs Not Reportable 07/23/18 04:23 Not Reportable 07/23/18 04:23 Not Reportable 07/23/18 04:23 Not Reportable 07/23/18 04:23 Not Reportable 07/23/18 04:23 Not Reportable 07/23/18 04:23 Not Reportable 07/23/18 04:23 Not Reportable 07/23/18 04:23 Not Reportable 07/23/18 04:23 Not Reportable 07/23/18 04:23 Not Reportable 07/23/18 04:23 Not Reportable 07/23/18 04:23 Not Reportable 07/23/18 04:23 Not Reportable 07/23/18 04:23 Not Reportable 07/23/18 04:23 Not Reportable 07/23/18 04:23 Not Reportable 07/23/18 04:23 Not Reportable 07/23/18 04:23 Not Reportable 07/23/18 04:23 Not Reportable 07/23/18 04:23 Acanthocytes (Spur) Not Reportable 07/23/18 04:23 Rouleaux Not Reportable 07/23/18 04:23 Not Reportable 07/23/18 04:23 Not Reportable 07/23/18 04:23 Not Reportable 07/23/18 04:23 Not Reportable 07/23/18 04:23 Hem Pathologist Commnt No 07/23/18 04:23 PT 12.6 Sec. (12.2-14.9) 07/22/18 18:12 INR 0.89 (0.87-1.13) 07/22/18 18:12 APTT 22.0 Sec. (24.2-36.6) L 07/22/18 18:12 POC ABG pH 7.355 (7.35-7.45) 07/22/18 18:22 POC ABG pCO2 34.2 (35-45) L 07/22/18 18:22 POC ABG pO2 100 (80-105) 07/22/18 18:22 POC ABG HCO3 19.1 (22-26 mml/L) 07/22/18 18:22 POC ABG Total CO2 20 (23-27mmol/L) 07/22/18 18:22 POC ABG O2 Sat 98 07/22/18 18:22 POC ABG Base Excess -6 ((-2) - (+3)mmol/L) 07/22/18 18:22 100 % 07/22/18 18:22 Sodium 142 mmol/L (137-145) 07/26/18 16:46 Potassium 4.1 mmol/L (3.6-5.0) 07/26/18 16:46 Chloride 104.0 mmol/L (98-107) 07/26/18 16:46 Carbon Dioxide 22 mmol/L (22-30) 07/26/18 16:46 20 mmol/L 07/26/18 16:46 BUN 54 mg/dL (7-17) H 07/26/18 16:46 2.1 mg/dL (0.7-1.2) H 07/26/18 16:46 Estimated GFR 28 ml/min 07/26/18 16:46 26 % 07/26/18 16:46 Glucose 205 mg/dL (65-100) H 07/26/18 16:46 POC Glucose 152 (70-105) H 07/28/18 11:48 12.1 % (4-6) H 07/22/18 20:40 Lactic Acid 1.50 mmol/L (0.7-2.0) 07/22/18 18:12 Calcium 7.6 mg/dL (8.4-10.2) L 07/26/18 16:46 Phosphorus 4.10 mg/dL (2.5-4.5) D 07/25/18 17:33 Magnesium 2.10 mg/dL (1.7-2.3) 07/25/18 17:33 0.70 mg/dL (0.1-1.2) 07/23/18 04:23 AST 33 units/L (5-40) 07/23/18 04:23 ALT 45 units/L (7-56) 07/23/18 04:23 183 units/L (35-129) H 07/23/18 04:23 < 0.010 ng/mL (0.00-0.029) 07/22/18 20:08 NT-Pro-B Natriuret Pep 1108 pg/mL (0-900) H 07/22/18 19:18 7.0 g/dL (6.3-8.2) 07/23/18 04:23 3.0 g/dL (3.9-5) L 07/23/18 04:23 0.8 % 07/23/18 04:23 Active Medications - Current Medications Current Medications: Generic Name Dose Route Start Last Admin Trade Name Freq PRN Reason Stop Dose Admin Acetaminophen 650 mg 07/22/18 20:27 Tylenol PO Q4H PRN Pain MILD(1-3)/Fever >100.5/SILVESTRE Albuterol 2.5 mg 07/22/18 20:30 Proventil IH Q4HRT PRN Shortness Of Breath Albuterol/Ipratropium 1 ampul 07/23/18 08:00 07/28/18 11:44 Duoneb *Not For Prn Use* IH Not Given QIDRT ABDULAZIZ Arformoterol Tartrate 15 mcg 07/22/18 22:00 07/28/18 08:07 Brovana Nebu IH 15 mcg Q12HRT ABDULAZIZ Administration Budesonide 0.5 mg 07/22/18 22:00 07/28/18 08:07 Pulmicort IH 0.5 mg Q12HRT ABDULAZIZ Administration Dextrose 0 ml 07/25/18 17:28 07/27/18 08:02 D50w (25gm) Syringe IV 20 ml ONCE PRN Administration Hypoglycemia Gabapentin 300 mg 07/22/18 22:00 07/28/18 10:05 Neurontin PO 300 mg BID ABDULAZIZ Administration Heparin Sodium (Porcine) 5,000 unit 07/24/18 14:00 07/28/18 05:25 Heparin SUB-Q 5,000 unit Q8HR ABDULAZIZ Administration Hydrochlorothiazide 25 mg 07/22/18 21:00 07/28/18 10:05 Hctz PO 25 mg DAILY ABDULAZIZ Administration Hydromorphone HCl 0.25 mg 07/22/18 20:27 Dilaudid IV Q3H PRN Pain, Moderate (4-6) Insulin Glargine 10 units 07/27/18 22:00 07/27/18 22:13 Lantus SUB-Q 10 units QHS ABDULAZIZ Administration Insulin Human Lispro 0 unit 07/25/18 11:30 07/28/18 08:30 Humalog SUB-Q Not Given ACHS [facility] Protocol Insulin Human Lispro 3 unit 07/27/18 11:34 07/27/18 16:28 Humalog SUB-Q 3 unit AC [facility] Administration Lisinopril 40 mg 07/22/18 21:00 07/28/18 10:11 Zestril PO Not Given QDAY [facility] Montelukast Sodium 10 mg 07/22/18 21:00 07/27/18 21:30 Singulair PO 10 mg QHS ABDULAZIZ Administration Ondansetron HCl 4 mg 07/22/18 20:27 Zofran IV Q8H PRN Nausea And Vomiting Pravastatin Sodium 80 mg 07/22/18 22:00 07/27/18 22:13 Pravachol PO 80 mg QHS ABDULAZIZ Administration Sodium Chloride 10 ml 07/22/18 22:00 07/28/18 10:11 Sodium Chloride Flush Syringe 10 Ml IV 10 ml BID BADULAZIZ Administration Sodium Chloride 10 ml 07/22/18 20:27 07/23/18 06:24 Sodium Chloride Flush Syringe 10 Ml IV 10 ml PRN PRN Administration LINE FLUSH Nutrition/Malnutrition Assess - Dietary Evaluation Nutrition/Malnutrition Findings: Nutrition Notes Start: 07/26/18 16:14 Freq: Status: Active Protocol: Document 07/27/18 17:02 RM (Rec: 07/27/18 17:03 [id number]) Nutrition Notes Need for Assessment generated from: LOS Initial or Follow up Brief Note Height 5 ft 1 in Weight 109.4 kg [place] Body Weight (kg) 47.72 BMI 45.6 Subjective/Other Information Screened for LOS. Pt stated that her appetite is good and that she eats all of her meals. Nutrition Intervention Revisit per MD consult or patient Sign Off request:
[2018-07-28] MEDS: SINGULAIR PO SCH (22:24)
[2018-07-28] MEDS: PRAVACHOL PO SCH (22:25)
[2018-07-28] MEDS: LANTUS SUB-Q SCH (22:25)
[2018-07-29] MEDS: HEPARIN SUB-Q SCH ×3 (05:03→22:44)
[2018-07-29] MEDS: HumaLOG SUB-Q SCH ×7 (07:25→22:45)
[2018-07-29] MEDS: BROVANA NEBU IH SCH ×2 (09:05→19:15)
[2018-07-29] MEDS: PULMICORT IH SCH ×2 (09:05→19:15)
[2018-07-29] MEDS: DUONEB *Not for PRN Use IH SCH (09:05)
[2018-07-29] MEDS: NEURONTIN PO SCH ×2 (10:01→22:44)
[2018-07-29] MEDS: SODIUM CHLORIDE FLUSH SYRINGE 10 ML IV SCH ×2 (10:01→22:45)
[2018-07-29] MEDS: HCTZ PO SCH (10:07)
[2018-07-29] MEDS: ZESTRIL PO SCH (10:07)
--- NOTE | 2018-07-29 10:55 | Progress Note ---
Assessment and Plan Assessment and plan: History of present illness: 72 years old female with history of COPD and asthma presented to the ER via EMS in acute respiratory distress, found to have hypoxia. Past Medical History Hypertension, DM, gerd, OA, asthma, copd, osteoporosis, hld Acute respiratory failure with hypoxia cont oxygen HHNK exacerbated due to steroids sp insulin drip, resolved COPD exacerbation cont steroids, nebs, chest PT, pulmonology input appreciated, bipap prn Hypertension Continue antihypertensives uncontrolled Insulin dependent diabetes mellitus, w persistent hyperglycemia optimize insulins CKD stage 3 avoid nephrotoxins Hyperlipidemia Continue statins Peripheral neuropathy Continue gabapentin DVT prophylaxis Continue Lovenox and GI prophylaxis Critical care time 35 minutes History Interval history: Review of systems Constitutional: No fevers, no malaise, no joint pains CVS: No chest pain, no orthopnea, no dyspnea on exertion, no pedal edema GI: No abdominal pain, no diarrhea, no vomiting, no constipation Respiratory: Complaining of shortness of breath and wheezing Hospitalist Physical - Physical exam Narrative exam: General.: Appears well, no distress, nontoxic HEENT: Moist mucous membranes, extraocular muscles intact, no lymphadenopathy Neck: supple Cardiac: S1-S2 heard Lungs: Poor air entry and wheezing Abdomen: soft , nontender, nondistended, bowel sounds positive Extremities: no edema clubbing or cyanosis Skin: no rash or lesions Neurologic: no gross focal deficits Psych: calm, and cooperative - Constitutional Vitals: Temp Pulse Resp BP Pulse Ox 98.1 F 70 18 145/53 100 07/29/18 02:41 07/29/18 10:07 07/29/18 09:11 07/29/18 10:07 07/29/18 09:51 General appearance: Present: severe distress Results - Labs CBC & Chem 7: 07/23/18 04:23 07/26/18 16:46 Labs: Laboratory Last Values WBC 14.3 K/mm3 (4.5-11.0) H 07/23/18 04:23 RBC 3.52 M/mm3 (3.65-5.03) L 07/23/18 04:23 Hgb 9.9 gm/dl (10.1-14.3) L 07/23/18 04:23 Hct 29.8 % (30.3-42.9) L 07/23/18 04:23 MCV 85 fl (79-97) 07/23/18 04:23 MCH 28 pg (28-32) 07/23/18 04:23 MCHC 33 % (30-34) 07/23/18 04:23 RDW 17.2 % (13.2-15.2) H 07/23/18 04:23 Plt Count 206 K/mm3 (140-440) 07/23/18 04:23 Add Manual Diff Complete 07/23/18 04:23 Total Counted 100 07/23/18 04:23 Seg Neutrophils % [employer] 07/23/18 04:23 Seg Neuts % (Manual) 92.0 % (40.0-70.0) H 07/23/18 04:23 0 % 07/23/18 04:23 5.0 % (13.4-35.0) L 07/23/18 04:23 Reactive Lymphs % (Man) 0 % 07/23/18 04:23 3.0 % (0.0-7.3) 07/23/18 04:23 0 % (0.0-4.3) 07/23/18 04:23 0 % (0.0-1.8) 07/23/18 04:23 0 % 07/23/18 04:23 0 % 07/23/18 04:23 0 % 07/23/18 04:23 0 % 07/23/18 04:23 Nucleated RBC % Not Reportable 07/23/18 04:23 Seg Neutrophils # Man 13.2 K/mm3 (1.8-7.7) H 07/23/18 04:23 Band Neutrophils # 0.0 K/mm3 07/23/18 04:23 0.7 K/mm3 (1.2-5.4) L 07/23/18 04:23 Abs React Lymphs (Man) 0.0 K/mm3 07/23/18 04:23 0.4 K/mm3 (0.0-0.8) 07/23/18 04:23 0.0 K/mm3 (0.0-0.4) 07/23/18 04:23 0.0 K/mm3 (0.0-0.1) 07/23/18 04:23 0.0 K/mm3 07/23/18 04:23 0.0 K/mm3 07/23/18 04:23 0.0 K/mm3 07/23/18 04:23 Blast Cells # 0.0 K/mm3 07/23/18 04:23 WBC Morphology Not Reportable 07/23/18 04:23 Hypersegmented Neuts Not Reportable 07/23/18 04:23 Hyposegmented Neuts Not Reportable 07/23/18 04:23 Hypogranular Neuts Not Reportable 07/23/18 04:23 Not Reportable 07/23/18 04:23 Not Reportable 07/23/18 04:23 Not Reportable 07/23/18 04:23 Not Reportable 07/23/18 04:23 Not Reportable 07/23/18 04:23 Not Reportable 07/23/18 04:23 Not Reportable 07/23/18 04:23 1+ 07/23/18 04:23 Plt Clumps, EDTA Not Reportable 07/23/18 04:23 Not Reportable 07/23/18 04:23 Not Reportable 07/23/18 04:23 Not Reportable 07/23/18 04:23 Plt Morphology Comment Not Reportable 07/23/18 04:23 RBC Morphology Normal 07/23/18 04:23 Dimorphic RBCs Not Reportable 07/23/18 04:23 Not Reportable 07/23/18 04:23 Not Reportable 07/23/18 04:23 Not Reportable 07/23/18 04:23 Not Reportable 07/23/18 04:23 Not Reportable 07/23/18 04:23 Not Reportable 07/23/18 04:23 Not Reportable 07/23/18 04:23 Not Reportable 07/23/18 04:23 Not Reportable 07/23/18 04:23 Not Reportable 07/23/18 04:23 Not Reportable 07/23/18 04:23 Not Reportable 07/23/18 04:23 Not Reportable 07/23/18 04:23 Not Reportable 07/23/18 04:23 Not Reportable 07/23/18 04:23 Not Reportable 07/23/18 04:23 Not Reportable 07/23/18 04:23 Not Reportable 07/23/18 04:23 Not Reportable 07/23/18 04:23 Acanthocytes (Spur) Not Reportable 07/23/18 04:23 Rouleaux Not Reportable 07/23/18 04:23 Not Reportable 07/23/18 04:23 Not Reportable 07/23/18 04:23 Not Reportable 07/23/18 04:23 Not Reportable 07/23/18 04:23 Hem Pathologist Commnt No 07/23/18 04:23 PT 12.6 Sec. (12.2-14.9) 07/22/18 18:12 INR 0.89 (0.87-1.13) 07/22/18 18:12 APTT 22.0 Sec. (24.2-36.6) L 07/22/18 18:12 POC ABG pH 7.355 (7.35-7.45) 07/22/18 18:22 POC ABG pCO2 34.2 (35-45) L 07/22/18 18:22 POC ABG pO2 100 (80-105) 07/22/18 18:22 POC ABG HCO3 19.1 (22-26 mml/L) 07/22/18 18:22 POC ABG Total CO2 20 (23-27mmol/L) 07/22/18 18:22 POC ABG O2 Sat 98 07/22/18 18:22 POC ABG Base Excess -6 ((-2) - (+3)mmol/L) 07/22/18 18:22 100 % 07/22/18 18:22 Sodium 142 mmol/L (137-145) 07/26/18 16:46 Potassium 4.1 mmol/L (3.6-5.0) 07/26/18 16:46 Chloride 104.0 mmol/L (98-107) 07/26/18 16:46 Carbon Dioxide 22 mmol/L (22-30) 07/26/18 16:46 20 mmol/L 07/26/18 16:46 BUN 54 mg/dL (7-17) H 07/26/18 16:46 2.1 mg/dL (0.7-1.2) H 07/26/18 16:46 Estimated GFR 28 ml/min 07/26/18 16:46 26 % 07/26/18 16:46 Glucose 205 mg/dL (65-100) H 07/26/18 16:46 POC Glucose 105 (70-105) 07/29/18 07:18 12.1 % (4-6) H 07/22/18 20:40 Lactic Acid 1.50 mmol/L (0.7-2.0) 07/22/18 18:12 Calcium 7.6 mg/dL (8.4-10.2) L 07/26/18 16:46 Phosphorus 4.10 mg/dL (2.5-4.5) D 07/25/18 17:33 Magnesium 2.10 mg/dL (1.7-2.3) 07/25/18 17:33 0.70 mg/dL (0.1-1.2) 07/23/18 04:23 AST 33 units/L (5-40) 07/23/18 04:23 ALT 45 units/L (7-56) 07/23/18 04:23 183 units/L (35-129) H 07/23/18 04:23 < 0.010 ng/mL (0.00-0.029) 07/22/18 20:08 NT-Pro-B Natriuret Pep 1108 pg/mL (0-900) H 07/22/18 19:18 7.0 g/dL (6.3-8.2) 07/23/18 04:23 3.0 g/dL (3.9-5) L 07/23/18 04:23 0.8 % 07/23/18 04:23 Active Medications - Current Medications Current Medications: Generic Name Dose Route Start Last Admin Trade Name Freq PRN Reason Stop Dose Admin Acetaminophen 650 mg 07/22/18 20:27 Tylenol PO Q4H PRN Pain MILD(1-3)/Fever >100.5/SILVESTRE Albuterol 2.5 mg 07/22/18 20:30 Proventil IH Q4HRT PRN Shortness Of Breath Arformoterol Tartrate 15 mcg 07/22/18 22:00 07/29/18 09:05 Brovana Nebu IH 15 mcg Q12HRT ABDULAZIZ Administration Budesonide 0.5 mg 07/22/18 22:00 07/29/18 09:05 Pulmicort IH 0.5 mg Q12HRT ABDULAZIZ Administration Dextrose 0 ml 07/25/18 17:28 07/27/18 08:02 D50w (25gm) Syringe IV 20 ml ONCE PRN Administration Hypoglycemia Gabapentin 300 mg 07/22/18 22:00 07/29/18 10:01 Neurontin PO 300 mg BID ABDULAZIZ Administration Heparin Sodium (Porcine) 5,000 unit 07/24/18 14:00 07/29/18 05:03 Heparin SUB-Q 5,000 unit Q8HR ABDULAZIZ Administration Hydrochlorothiazide 25 mg 07/22/18 21:00 07/29/18 10:07 Hctz PO 25 mg DAILY ABDULAZIZ Administration Hydromorphone HCl 0.25 mg 07/22/18 20:27 Dilaudid IV Q3H PRN Pain, Moderate (4-6) Insulin Glargine 10 units 07/27/18 22:00 07/28/18 22:25 Lantus SUB-Q 10 units QHS ABDULAZIZ Administration Insulin Human Lispro 0 unit 07/25/18 11:30 07/28/18 22:26 Humalog SUB-Q 2 unit ACHS ABDULAZIZ Administration Protocol Insulin Human Lispro 3 unit 07/27/18 11:34 07/28/18 17:19 Humalog SUB-Q 3 unit AC ABDULAZIZ Administration Lisinopril 40 mg 07/22/18 21:00 07/29/18 10:07 Zestril PO 40 mg QDAY ABDULAZIZ Administration Montelukast Sodium 10 mg 07/22/18 21:00 07/28/18 22:24 Singulair PO 10 mg QHS ABDULAZIZ Administration Ondansetron HCl 4 mg 07/22/18 20:27 Zofran IV Q8H PRN Nausea And Vomiting Pravastatin Sodium 80 mg 07/22/18 22:00 07/28/18 22:25 Pravachol PO 80 mg QHS ABDULAZIZ Administration Sodium Chloride 10 ml 07/22/18 22:00 07/29/18 10:01 Sodium Chloride Flush Syringe 10 Ml IV 10 ml BID ABDULAZIZ Administration Sodium Chloride 10 ml 07/22/18 20:27 07/23/18 06:24 Sodium Chloride Flush Syringe 10 Ml IV 10 ml PRN PRN Administration LINE FLUSH Nutrition/Malnutrition Assess - Dietary Evaluation Nutrition/Malnutrition Findings: Nutrition Notes Start: 07/26/18 16:14 Freq: Status: Active Protocol: Document 07/27/18 17:02 RM (Rec: 07/27/18 17:03 RM [id number]) Nutrition Notes Need for Assessment generated from: LOS Initial or Follow up Brief Note Height 5 ft 1 in Weight 109.4 kg [place] Body Weight (kg) 47.72 BMI 45.6 Subjective/Other Information Screened for LOS. Pt stated that her appetite is good and that she eats all of her meals. Nutrition Intervention Revisit per MD consult or patient Sign Off request:
--- NOTE | 2018-07-29 17:41 | Progress Note ---
Assessment and Plan Patient alert, awake and resting on 1 litres O2. O2 Sat 99%. No acute respiratory distress. Patient goes on BIPAP during night time. - Patient Problems (1) Acute exacerbation of CHF (congestive heart failure) Current Visit: Yes Status: Acute Plan to address problem: Management as per primary care and cardiology. (2) Acute respiratory failure with hypoxia Current Visit: Yes Status: Acute Plan to address problem: BIPAP 16/8, rate 20, FIO2 30%. O2 1 litres when she is not on BIPAP. Albuterol/atrovent aerosol treatment q 6 hours PRN for shortness of breath. Proana and budecinide aerosol treatment q12h . Recommend DVT prophylaxis, S/C Lovenox. GI prophylaxis , Protonix. (3) Asthma exacerbation Current Visit: Yes Status: Acute Plan to address problem: BIPAP 16/8, rate 20, FIO2 30%. O2 1 litres when she is not on BIPAP. Albuterol/atrovent aerosol treatment q 6 hours PRN for shortness of breath. Proana and budecinide aerosol treatment q12h . Recommend DVT prophylaxis, S/C Lovenox. GI prophylaxis , Protonix. (4) Morbid obesity with BMI of 45.0-49.9, adult Current Visit: Yes Status: Acute Plan to address problem: Recommend exercise and weight reduction diet. (5) Sleep apnea in adult Current Visit: Yes Status: Acute Plan to address problem: BIPAP 16/8, rate 20, FIO2 30%. Subjective Date of service: 07/29/18 Interval history: Patient alert, awake and resting on 1 litres O2. O2 Sat 99%. No acute respiratory distress. Patient goes on BIPAP during night time. Objective Vital Signs - 12hr 07/29/18 07/29/18 07/29/18 07:13 07:30 09:05 Temperature Pulse Rate 63 Pulse Rate [ 71 Bilateral Throughout] Respiratory Rate Respiratory 18 Rate [Bilateral Throughout] Blood Pressure 96/40 Blood Pressure 103/43 [Right] O2 Sat by Pulse 100 Oximetry 07/29/18 07/29/18 07/29/18 09:06 09:11 09:51 Temperature Pulse Rate Pulse Rate [ 70 Bilateral Throughout] Respiratory Rate Respiratory 18 Rate [Bilateral Throughout] Blood Pressure Blood Pressure [Right] O2 Sat by Pulse 100 100 Oximetry 07/29/18 07/29/1819 10:04 10:07 11:11 Temperature Pulse Rate 70 74 Pulse Rate [ Bilateral Throughout] Respiratory Rate Respiratory Rate [Bilateral Throughout] Blood Pressure 145/53 145/53 Blood Pressure [Right] O2 Sat by Pulse 93 Oximetry 07/29/18 07/29/18 07/29/18 11:12 11:15 14:33 Temperature 98.4 F Pulse Rate 102 H 88 73 Pulse Rate [ Bilateral Throughout] Respiratory 19 Rate Respiratory Rate [Bilateral Throughout] Blood Pressure 130/51 Blood Pressure [Right] O2 Sat by Pulse 87 97 99 Oximetry Constitutional: alert, other (Morbidly Obese, ) Eyes: non-icteric ENT: oropharynx moist, other ([place] 4/4) Neck: supple, no lymphadenopathy, no JVD Effort: mildly labored Ascultation: Bilateral: diminished breath sounds, wheezes (Expiratory wheeze), rales (Basilar) Cardiovascular: regular rate and rhythm, other (S1, S2, no murmurs) Gastrointestinal: normoactive bowel sounds, soft, non-tender Integumentary: normal Extremities: no cyanosis, pulses normal, edema (improving) Neurologic: normal mental status, non-focal exam, pupils equal and round, CN II- XII normal, motor strength normal and Psychiatric: mood appropriate, affect normal CBC and BMP: 07/23/18 04:23 07/26/18 16:46 ABG, PT/INR, D-dimer: ABG POC ABG pH 7.355 (7.35-7.45) 07/22/18 18:22 POC ABG pCO2 34.2 (35-45) L 07/22/18 18:22 POC ABG pO2 100 (80-105) 07/22/18 18:22 POC ABG HCO3 19.1 (22-26 mml/L) 07/22/18 18:22 POC ABG Total CO2 20 (23-27mmol/L) 07/22/18 18:22 POC ABG O2 Sat 98 07/22/18 18:22 PT/INR, D-dimer PT 12.6 Sec. (12.2-14.9) 07/22/18 18:12 INR 0.89 (0.87-1.13) 07/22/18 18:12 Abnormal lab findings: Abnormal Labs 06/11/0107/22/18 07/22/18 18:12 18:12 18:12 WBC 19.0 H RBC Hgb Hct RDW 17.8 H Seg Neuts % (Manual) 84.0 H Lymphocytes % (Manual) 11.0 L Seg Neutrophils # Man 16.0 H Lymphocytes # (Manual) Basophils # (Manual) 0.2 H APTT 22.0 L POC ABG pCO2 Sodium Chloride Carbon Dioxide 17 L BUN 28 H Creatinine 1.8 H Glucose 409 H POC Glucose Hemoglobin A1c Calcium Alkaline Phosphatase NT-Pro-B Natriuret Pep Albumin 07/22/18 07/22/18 07/22/18 18:19 18:22 19:18 WBC RBC Hgb Hct RDW Seg Neuts % (Manual) Lymphocytes % (Manual) Seg Neutrophils # Man Lymphocytes # (Manual) Basophils # (Manual) APTT POC ABG pCO2 34.2 L Sodium Chloride Carbon Dioxide BUN Creatinine Glucose POC Glucose 356 H Hemoglobin A1c Calcium Alkaline Phosphatase NT-Pro-B Natriuret Pep 1108 H Albumin 07/22/18 07/22/18 07/22/18 20:40 21:02 23:09 WBC RBC Hgb Hct RDW Seg Neuts % (Manual) Lymphocytes % (Manual) Seg Neutrophils # Man Lymphocytes # (Manual) Basophils # (Manual) APTT POC ABG pCO2 Sodium Chloride Carbon Dioxide BUN Creatinine Glucose POC Glucose 422 H 440 H Hemoglobin A1c 12.1 H Calcium Alkaline Phosphatase NT-Pro-B Natriuret Pep Albumin 07/23/18 07/23/18 07/23/18 04:23 04:23 09:08 WBC 14.3 H RBC 3.52 L Hgb 9.9 L Hct 29.8 L RDW 17.2 H Seg Neuts % (Manual) 92.0 H Lymphocytes % (Manual) 5.0 L Seg Neutrophils # Man 13.2 H Lymphocytes # (Manual) 0.7 L Basophils # (Manual) APTT POC ABG pCO2 Sodium Chloride Carbon Dioxide 19 L BUN 33 H Creatinine 1.9 H Glucose 472 H POC Glucose 463 H Hemoglobin A1c Calcium Alkaline Phosphatase 183 H NT-Pro-B Natriuret Pep Albumin 3.0 L 07/23/18 07/23/18 07/23/18 13:40 17:08 21:23 WBC RBC Hgb Hct RDW Seg Neuts % (Manual) Lymphocytes % (Manual) Seg Neutrophils # Man Lymphocytes # (Manual) Basophils # (Manual) APTT POC ABG pCO2 Sodium Chloride Carbon Dioxide BUN Creatinine Glucose POC Glucose > 500 H > 500 H > 500 H Hemoglobin A1c Calcium Alkaline Phosphatase NT-Pro-B Natriuret Pep Albumin 07/24/18 07/24/18 07/24/18 00:59 01:07 04:26 WBC RBC Hgb Hct RDW Seg Neuts % (Manual) Lymphocytes % (Manual) Seg Neutrophils # Man Lymphocytes # (Manual) Basophils # (Manual) APTT POC ABG pCO2 Sodium Chloride Carbon Dioxide BUN Creatinine Glucose 761 H* POC Glucose > 500 H > 500 H Hemoglobin A1c Calcium Alkaline Phosphatase NT-Pro-B Natriuret Pep Albumin 07/24/18 07/24/18 07/24/18 04:27 05:18 05:28 WBC RBC Hgb Hct RDW Seg Neuts % (Manual) Lymphocytes % (Manual) Seg Neutrophils # Man Lymphocytes # (Manual) Basophils # (Manual) APTT POC ABG pCO2 Sodium 134 L 136 L Chloride Carbon Dioxide 20 L 18 L BUN 41 H 41 H Creatinine 1.9 H 1.9 H Glucose 614 H* 548 H* POC Glucose > 500 H Hemoglobin A1c Calcium Alkaline Phosphatase NT-Pro-B Natriuret Pep Albumin 07/24/18 07/24/18 07/24/18 06:41 07:08 08:06 WBC RBC Hgb Hct RDW Seg Neuts % (Manual) Lymphocytes % (Manual) Seg Neutrophils # Man Lymphocytes # (Manual) Basophils # (Manual) APTT POC ABG pCO2 Sodium Chloride Carbon Dioxide 19 L BUN 41 H Creatinine 2.0 H Glucose 320 H POC Glucose 409 H 227 H Hemoglobin A1c Calcium 8.3 L Alkaline Phosphatase NT-Pro-B Natriuret Pep Albumin 07/24/18 07/24/18 07/24/18 09:37 10:26 11:01 WBC RBC Hgb Hct RDW Seg Neuts % (Manual) Lymphocytes % (Manual) Seg Neutrophils # Man Lymphocytes # (Manual) Basophils # (Manual) APTT POC ABG pCO2 Sodium Chloride Carbon Dioxide 20 L BUN 43 H Creatinine 1.9 H Glucose 199 H POC Glucose 144 H 237 H Hemoglobin A1c Calcium 8.3 L Alkaline Phosphatase NT-Pro-B Natriuret Pep Albumin 07/24/18 07/24/18 07/24/18 11:36 11:51 12:07 WBC RBC Hgb Hct RDW Seg Neuts % (Manual) Lymphocytes % (Manual) Seg Neutrophils # Man Lymphocytes # (Manual) Basophils # (Manual) APTT POC ABG pCO2 Sodium Chloride Carbon Dioxide BUN Creatinine Glucose POC Glucose 268 H 259 H 262 H Hemoglobin A1c Calcium Alkaline Phosphatase NT-Pro-B Natriuret Pep Albumin 07/24/18 07/24/18 07/24/18 12:59 13:16 13:59 WBC RBC Hgb Hct RDW Seg Neuts % (Manual) Lymphocytes % (Manual) Seg Neutrophils # Man Lymphocytes # (Manual) Basophils # (Manual) APTT POC ABG pCO2 Sodium 136 L Chloride Carbon Dioxide 19 L BUN 46 H Creatinine 2.0 H Glucose 337 H POC Glucose 359 H 380 H Hemoglobin A1c Calcium 8.1 L Alkaline Phosphatase NT-Pro-B Natriuret Pep Albumin 07/24/18 07/24/18 07/24/18 15:13 16:22 17:09 WBC RBC Hgb Hct RDW Seg Neuts % (Manual) Lymphocytes % (Manual) Seg Neutrophils # Man Lymphocytes # (Manual) Basophils # (Manual) APTT POC ABG pCO2 Sodium Chloride Carbon Dioxide BUN Creatinine Glucose POC Glucose 333 H 311 H 307 H Hemoglobin A1c Calcium Alkaline Phosphatase NT-Pro-B Natriuret Pep Albumin 07/24/18 07/24/18 07/24/18 18:01 19:26 19:39 WBC RBC Hgb Hct RDW Seg Neuts % (Manual) Lymphocytes % (Manual) Seg Neutrophils # Man Lymphocytes # (Manual) Basophils # (Manual) APTT POC ABG pCO2 Sodium Chloride Carbon Dioxide 19 L BUN 51 H Creatinine 2.0 H Glucose 337 H POC Glucose 320 H 353 H Hemoglobin A1c Calcium Alkaline Phosphatase NT-Pro-B Natriuret Pep Albumin 07/24/18 07/24/18 07/24/18 20:11 21:02 22:09 WBC RBC Hgb Hct RDW Seg Neuts % (Manual) Lymphocytes % (Manual) Seg Neutrophils # Man Lymphocytes # (Manual) Basophils # (Manual) APTT POC ABG pCO2 Sodium Chloride Carbon Dioxide BUN Creatinine Glucose POC Glucose 330 H 345 H 301 H Hemoglobin A1c Calcium Alkaline Phosphatase NT-Pro-B Natriuret Pep Albumin 07/24/18 07/25/18 07/25/18 23:13 00:08 01:12 WBC RBC Hgb Hct RDW Seg Neuts % (Manual) Lymphocytes % (Manual) Seg Neutrophils # Man Lymphocytes # (Manual) Basophils # (Manual) APTT POC ABG pCO2 Sodium Chloride 109.4 H Carbon Dioxide 18 L BUN 51 H Creatinine 1.9 H Glucose 309 H POC Glucose 257 H 192 H Hemoglobin A1c Calcium Alkaline Phosphatase NT-Pro-B Natriuret Pep Albumin 07/25/18 07/25/18 07/25/18 01:22 02:06 03:01 WBC RBC Hgb Hct RDW Seg Neuts % (Manual) Lymphocytes % (Manual) Seg Neutrophils # Man Lymphocytes # (Manual) Basophils # (Manual) APTT POC ABG pCO2 Sodium Chloride Carbon Dioxide BUN Creatinine Glucose POC Glucose 168 H 146 H 120 H Hemoglobin A1c Calcium Alkaline Phosphatase NT-Pro-B Natriuret Pep Albumin 07/25/18 07/25/18 07/25/18 04:11 04:14 05:13 WBC RBC Hgb Hct RDW Seg Neuts % (Manual) Lymphocytes % (Manual) Seg Neutrophils # Man Lymphocytes # (Manual) Basophils # (Manual) APTT POC ABG pCO2 Sodium Chloride Carbon Dioxide 21 L BUN 52 H Creatinine 1.8 H Glucose 121 H POC Glucose 121 H 136 H Hemoglobin A1c Calcium 8.2 L Alkaline Phosphatase NT-Pro-B Natriuret Pep Albumin 07/25/18 07/25/18 07/25/18 06:04 06:49 07:53 WBC RBC Hgb Hct RDW Seg Neuts % (Manual) Lymphocytes % (Manual) Seg Neutrophils # Man Lymphocytes # (Manual) Basophils # (Manual) APTT POC ABG pCO2 Sodium Chloride Carbon Dioxide BUN Creatinine Glucose POC Glucose 138 H 156 H 225 H Hemoglobin A1c Calcium Alkaline Phosphatase NT-Pro-B Natriuret Pep Albumin 07/25/18 07/25/18 07/25/18 09:38 11:29 16:55 WBC RBC Hgb Hct RDW Seg Neuts % (Manual) Lymphocytes % (Manual) Seg Neutrophils # Man Lymphocytes # (Manual) Basophils # (Manual) APTT POC ABG pCO2 Sodium Chloride Carbon Dioxide 20 L BUN 50 H Creatinine 1.8 H Glucose 266 H POC Glucose 334 H 478 H Hemoglobin A1c Calcium 8.1 L Alkaline Phosphatase NT-Pro-B Natriuret Pep Albumin 07/25/18 07/25/18 07/25/18 17:33 17:56 19:10 WBC RBC Hgb Hct RDW Seg Neuts % (Manual) Lymphocytes % (Manual) Seg Neutrophils # Man Lymphocytes # (Manual) Basophils # (Manual) APTT POC ABG pCO2 Sodium 136 L Chloride Carbon Dioxide 19 L 19 L BUN 56 H 55 H Creatinine 1.9 H 1.9 H Glucose 462 H 553 H* POC Glucose 462 H Hemoglobin A1c Calcium 8.1 L Alkaline Phosphatase NT-Pro-B Natriuret Pep Albumin 07/25/18 07/25/18 07/25/18 19:30 20:34 21:14 WBC RBC Hgb Hct RDW Seg Neuts % (Manual) Lymphocytes % (Manual) Seg Neutrophils # Man Lymphocytes # (Manual) Basophils # (Manual) APTT POC ABG pCO2 Sodium Chloride Carbon Dioxide BUN Creatinine Glucose POC Glucose > 500 H > 500 H 493 H Hemoglobin A1c Calcium Alkaline Phosphatase NT-Pro-B Natriuret Pep Albumin 07/25/18 07/25/18 07/25/18 22:00 22:09 23:02 WBC RBC Hgb Hct RDW Seg Neuts % (Manual) Lymphocytes % (Manual) Seg Neutrophils # Man Lymphocytes # (Manual) Basophils # (Manual) APTT POC ABG pCO2 Sodium Chloride Carbon Dioxide BUN Creatinine Glucose POC Glucose > 500 H 457 H 435 H Hemoglobin A1c Calcium Alkaline Phosphatase NT-Pro-B Natriuret Pep Albumin 07/25/18 07/26/18 07/26/18 23:15 00:09 00:54 WBC RBC Hgb Hct RDW Seg Neuts % (Manual) Lymphocytes % (Manual) Seg Neutrophils # Man Lymphocytes # (Manual) Basophils # (Manual) APTT POC ABG pCO2 Sodium Chloride Carbon Dioxide 21 L BUN 58 H Creatinine 1.9 H Glucose 393 H POC Glucose 317 H 288 H Hemoglobin A1c Calcium Alkaline Phosphatase NT-Pro-B Natriuret Pep Albumin 07/26/18 07/26/18 07/26/18 01:13 02:10 02:51 WBC RBC Hgb Hct RDW Seg Neuts % (Manual) Lymphocytes % (Manual) Seg Neutrophils # Man Lymphocytes # (Manual) Basophils # (Manual) APTT POC ABG pCO2 Sodium Chloride Carbon Dioxide 18 L BUN 58 H Creatinine 1.8 H Glucose 231 H POC Glucose 205 H 187 H Hemoglobin A1c Calcium Alkaline Phosphatase NT-Pro-B Natriuret Pep Albumin 07/26/18 07/26/18 07/26/18 04:11 05:02 06:17 WBC RBC Hgb Hct RDW Seg Neuts % (Manual) Lymphocytes % (Manual) Seg Neutrophils # Man Lymphocytes # (Manual) Basophils # (Manual) APTT POC ABG pCO2 Sodium Chloride Carbon Dioxide BUN Creatinine Glucose POC Glucose 253 H 166 H 150 H Hemoglobin A1c Calcium Alkaline Phosphatase NT-Pro-B Natriuret Pep Albumin 07/26/18 07/26/18 07/26/18 06:53 08:06 09:07 WBC RBC Hgb Hct RDW Seg Neuts % (Manual) Lymphocytes % (Manual) Seg Neutrophils # Man Lymphocytes # (Manual) Basophils # (Manual) APTT POC ABG pCO2 Sodium Chloride Carbon Dioxide BUN Creatinine Glucose POC Glucose 187 H 142 H 168 H Hemoglobin A1c Calcium Alkaline Phosphatase NT-Pro-B Natriuret Pep Albumin 07/26/18 07/26/18 07/26/18 09:42 12:08 16:08 WBC RBC Hgb Hct RDW Seg Neuts % (Manual) Lymphocytes % (Manual) Seg Neutrophils # Man Lymphocytes # (Manual) Basophils # (Manual) APTT POC ABG pCO2 Sodium Chloride Carbon Dioxide BUN 50 H Creatinine 1.7 H Glucose 153 H POC Glucose 206 H 196 H Hemoglobin A1c Calcium 7.6 L Alkaline Phosphatase NT-Pro-B Natriuret Pep Albumin 07/26/18 07/26/18 07/27/18 16:46 22:26 07:56 WBC RBC Hgb Hct RDW Seg Neuts % (Manual) Lymphocytes % (Manual) Seg Neutrophils # Man Lymphocytes # (Manual) Basophils # (Manual) APTT POC ABG pCO2 Sodium Chloride Carbon Dioxide BUN 54 H Creatinine 2.1 H Glucose 205 H POC Glucose 337 H 53 L Hemoglobin A1c Calcium 7.6 L Alkaline Phosphatase NT-Pro-B Natriuret Pep Albumin 07/27/18 07/27/18 07/27/18 11:36 16:10 21:22 WBC RBC Hgb Hct RDW Seg Neuts % (Manual) Lymphocytes % (Manual) Seg Neutrophils # Man Lymphocytes # (Manual) Basophils # (Manual) APTT POC ABG pCO2 Sodium Chloride Carbon Dioxide BUN Creatinine Glucose POC Glucose 151 H 191 H 321 H Hemoglobin A1c Calcium Alkaline Phosphatase NT-Pro-B Natriuret Pep Albumin 07/28/18 07/28/18 07/28/18 11:48 16:55 21:42 WBC RBC Hgb Hct RDW Seg Neuts % (Manual) Lymphocytes % (Manual) Seg Neutrophils # Man Lymphocytes # (Manual) Basophils # (Manual) APTT POC ABG pCO2 Sodium Chloride Carbon Dioxide BUN Creatinine Glucose POC Glucose 152 H 242 H 179 H Hemoglobin A1c Calcium Alkaline Phosphatase NT-Pro-B Natriuret Pep Albumin 07/29/18 07/29/18 11:40 16:43 WBC RBC Hgb Hct RDW Seg Neuts % (Manual) Lymphocytes % (Manual) Seg Neutrophils # Man Lymphocytes # (Manual) Basophils # (Manual) APTT POC ABG pCO2 Sodium Chloride Carbon Dioxide BUN Creatinine Glucose POC Glucose 204 H 171 H Hemoglobin A1c Calcium Alkaline Phosphatase NT-Pro-B Natriuret Pep Albumin Allied health notes reviewed: RT
[2018-07-29] MEDS: PRAVACHOL PO SCH (22:44)
[2018-07-29] MEDS: LANTUS SUB-Q SCH (22:44)
[2018-07-29] MEDS: SINGULAIR PO SCH (22:44)
[2018-07-30] MEDS: HEPARIN SUB-Q SCH ×2 (05:12→14:02)
--- NOTE | 2018-07-30 07:48 | Discharge Summary ---
Providers - Providers Date of Admission: 07/22/18 19:08 Attending physician: KORIN FARRELL MD 07/22/18 20:27 Consult to Physician [CONS] Routine Comment: Consulting Provider: TIFFANY CAMP Physician Instructions: Reason For Exam: acute respiratory failure 07/23/18 15:20 Occupational Therapy Evaluate and Treat [CONS] Routine Comment: Reason For Exam: weakness Physical Therapy Evaluation and Treat [CONS] Routine Comment: Reason For Exam: weakness 07/26/18 10:26 Consult to Dietitian/Nutrition [CONS] Routine Physician Instructions: Reason For Exam: Reason for Consult: Diet education [facility] Condition: Stable Hospital course: 72-year-old woman with a history of COPD/asthma who presented with shortness of breath and hypoxia Patient was treated with steroids and nebulizers, chest PT and rescue bipap. Develops DKA, and therefore needed insulin drip. DKA was exacerbated by steroids which were used to treat respiratory failure. The patient clinically improved and was weaned from rescue BiPAP back to nasal cannula oxygen. Diagnoses COPD exacerbation Acute on chronic respiratory failure with hypoxia Hypertension Type 2 diabetes with DKA and persistent hyperglycemia Hyperlipidemia Peripheral neuropathy CKD stage 3 Disposition: [id number] HOME UNDER HOME [facility] Time spent for discharge: 33 minutes Core Measure Documentation - Palliative Care Palliative Care/ Comfort Measures: Not Applicable - Core Measures Any of the following diagnoses?: none Exam - Constitutional Vitals: Temp Pulse Resp BP Pulse Ox 99.0 F 69 20 126/56 100 07/30/18 02:37 07/30/18 02:37 07/30/18 02:37 07/30/18 02:37 07/30/18 02:37 General appearance: Present: no acute distress, well-nourished - EENT Eyes: Present: PERRL ENT: hearing intact, clear oral mucosa - Neck Neck: Present: supple, normal ROM - Respiratory Respiratory effort: normal Respiratory: bilateral: CTA - Cardiovascular Heart Sounds: Present: S1 & S2. Absent: rub, click - Extremities Extremities: pulses symmetrical, No edema Peripheral Pulses: within normal limits - Abdominal General gastrointestinal: Present: soft, non-tender, non-distended, normal bowel sounds Female genitourinary: Present: normal - Integumentary Integumentary: Present: clear, warm, dry - Musculoskeletal Musculoskeletal: gait normal, strength equal bilaterally - Psychiatric Psychiatric: appropriate mood/affect, intact judgment & insight - Neurologic Neurologic: CNII-XII intact, moves all extremities Plan Follow up with: NIKITA AHMADI MD [Primary Care Provider] - 7 Days Prescriptions: Insulin Glargine [Lantus VIAL] 10 units SUB-Q QHS 30 Days units Lispro Insulin [HumaLOG] 3 unit SUB-Q AC 30 Days units
[2018-07-30] MEDS: PULMICORT IH SCH (07:54)
[2018-07-30] MEDS: BROVANA NEBU IH SCH (07:54)
[2018-07-30] MEDS: HumaLOG SUB-Q SCH ×6 (08:23→17:20)
[2018-07-30] MEDS: ZESTRIL PO SCH (10:05)
[2018-07-30] MEDS: NEURONTIN PO SCH (10:05)
[2018-07-30] MEDS: HCTZ PO SCH (10:06)
[2018-07-30] MEDS: SODIUM CHLORIDE FLUSH SYRINGE 10 ML IV SCH (10:06)
[2018-07-30 14:08] VITALS: BP 148/55
--- NOTE | 2018-07-30 17:21 | Progress Note ---
Assessment and Plan Patient alert, awake and resting on 1 litres O2. O2 Sat 100%. No acute respiratory distress. Patient goes on BIPAP during night time. - Patient Problems (1) Acute exacerbation of CHF (congestive heart failure) Current Visit: Yes Status: Acute Plan to address problem: Management as per primary care and cardiology. (2) Acute respiratory failure with hypoxia Current Visit: Yes Status: Acute Plan to address problem: BIPAP 16/8, rate 20, FIO2 30%. O2 1 litres when she is not on BIPAP. Albuterol/atrovent aerosol treatment q 6 hours PRN for shortness of breath. Proana and budecinide aerosol treatment q12h . Recommend DVT prophylaxis, S/C Lovenox. GI prophylaxis , Protonix. (3) Asthma exacerbation Current Visit: Yes Status: Acute Plan to address problem: BIPAP 16/8, rate 20, FIO2 30%. O2 1 litres when she is not on BIPAP. Albuterol/atrovent aerosol treatment q 6 hours PRN for shortness of breath. Proana and budecinide aerosol treatment q12h . Recommend DVT prophylaxis, S/C Lovenox. GI prophylaxis , Protonix. (4) Morbid obesity with BMI of 45.0-49.9, adult Current Visit: Yes Status: Acute Plan to address problem: Recommend exercise and weight reduction diet. (5) Sleep apnea in adult Current Visit: Yes Status: Acute Plan to address problem: BIPAP 16/8, rate 20, FIO2 30%. Subjective Date of service: 07/30/18 Interval history: Patient alert, awake and resting on 1 litres O2. O2 Sat 100%. No acute respiratory distress. Patient goes on BIPAP during night time. Objective Vital Signs - 12hr 07/30/18 07/30/18 07/30/18 07:36 07:45 07:57 Temperature 98.6 F Pulse Rate 77 Pulse Rate [ Apical] Pulse Rate [ 68 72 Bilateral Throughout] Respiratory 20 Rate Respiratory 16 17 Rate [Bilateral Throughout] Blood Pressure 159/47 O2 Sat by Pulse 100 Oximetry 07/30/18 07/30/18 07/30/18 07:59 09:02 10:05 Temperature Pulse Rate 77 Pulse Rate [ 76 Apical] Pulse Rate [ Bilateral Throughout] Respiratory Rate Respiratory Rate [Bilateral Throughout] Blood Pressure 159/47 O2 Sat by Pulse 97 96 Oximetry 07/30/18 13:48 Temperature 98.8 F Pulse Rate 81 Pulse Rate [ Apical] Pulse Rate [ Bilateral Throughout] Respiratory 20 Rate Respiratory Rate [Bilateral Throughout] Blood Pressure 148/55 O2 Sat by Pulse 100 Oximetry Constitutional: alert, other (Morbidly Obese, ) Eyes: non-icteric ENT: oropharynx moist, other ([place] 4/4) Neck: supple, no lymphadenopathy, no JVD Effort: mildly labored Ascultation: Bilateral: diminished breath sounds, wheezes (Expiratory wheeze), rales (Basilar) Cardiovascular: regular rate and rhythm, other (S1, S2, no murmurs) Gastrointestinal: normoactive bowel sounds, soft, non-tender Integumentary: normal Extremities: no cyanosis, pulses normal, edema (improving) Neurologic: normal mental status, non-focal exam, pupils equal and round, CN II- XII normal, motor strength normal and Psychiatric: mood appropriate, affect normal CBC and BMP: 07/23/18 04:23 07/26/18 16:46 ABG, PT/INR, D-dimer: ABG POC ABG pH 7.355 (7.35-7.45) 07/22/18 18:22 POC ABG pCO2 34.2 (35-45) L 07/22/18 18:22 POC ABG pO2 100 (80-105) 07/22/18 18:22 POC ABG HCO3 19.1 (22-26 mml/L) 07/22/18 18:22 POC ABG Total CO2 20 (23-27mmol/L) 07/22/18 18:22 POC ABG O2 Sat 98 07/22/18 18:22 PT/INR, D-dimer PT 12.6 Sec. (12.2-14.9) 07/22/18 18:12 INR 0.89 (0.87-1.13) 07/22/18 18:12 Abnormal lab findings: Abnormal Labs 07/22/18 07/22/18 07/22/18 18:12 18:12 18:12 WBC 19.0 H RBC Hgb Hct RDW 17.8 H Seg Neuts % (Manual) 84.0 H Lymphocytes % (Manual) 11.0 L Seg Neutrophils # Man 16.0 H Lymphocytes # (Manual) Basophils # (Manual) 0.2 H APTT 22.0 L POC ABG pCO2 Sodium Chloride Carbon Dioxide 17 L BUN 28 H Creatinine 1.8 H Glucose 409 H POC Glucose Hemoglobin A1c Calcium Alkaline Phosphatase NT-Pro-B Natriuret Pep Albumin 07/22/18 07/22/18 07/22/18 18:19 18:22 19:18 WBC RBC Hgb Hct RDW Seg Neuts % (Manual) Lymphocytes % (Manual) Seg Neutrophils # Man Lymphocytes # (Manual) Basophils # (Manual) APTT POC ABG pCO2 34.2 L Sodium Chloride Carbon Dioxide BUN Creatinine Glucose POC Glucose 356 H Hemoglobin A1c Calcium Alkaline Phosphatase NT-Pro-B Natriuret Pep 1108 H Albumin 07/22/18 07/22/18 07/22/18 20:40 21:02 23:09 WBC RBC Hgb Hct RDW Seg Neuts % (Manual) Lymphocytes % (Manual) Seg Neutrophils # Man Lymphocytes # (Manual) Basophils # (Manual) APTT POC ABG pCO2 Sodium Chloride Carbon Dioxide BUN Creatinine Glucose POC Glucose 422 H 440 H Hemoglobin A1c 12.1 H Calcium Alkaline Phosphatase NT-Pro-B Natriuret Pep Albumin 07/23/18 07/23/18 07/23/18 04:23 04:23 09:08 WBC 14.3 H RBC 3.52 L Hgb 9.9 L Hct 29.8 L RDW 17.2 H Seg Neuts % (Manual) 92.0 H Lymphocytes % (Manual) 5.0 L Seg Neutrophils # Man 13.2 H Lymphocytes # (Manual) 0.7 L Basophils # (Manual) APTT POC ABG pCO2 Sodium Chloride Carbon Dioxide 19 L BUN 33 H Creatinine 1.9 H Glucose 472 H POC Glucose 463 H Hemoglobin A1c Calcium Alkaline Phosphatase 183 H NT-Pro-B Natriuret Pep Albumin 3.0 L 07/23/18 07/23/18 07/23/18 13:40 17:08 21:23 WBC RBC Hgb Hct RDW Seg Neuts % (Manual) Lymphocytes % (Manual) Seg Neutrophils # Man Lymphocytes # (Manual) Basophils # (Manual) APTT POC ABG pCO2 Sodium Chloride Carbon Dioxide BUN Creatinine Glucose POC Glucose > 500 H > 500 H > 500 H Hemoglobin A1c Calcium Alkaline Phosphatase NT-Pro-B Natriuret Pep Albumin 07/24/18 07/24/18 07/24/18 00:59 01:07 04:26 WBC RBC Hgb Hct RDW Seg Neuts % (Manual) Lymphocytes % (Manual) Seg Neutrophils # Man Lymphocytes # (Manual) Basophils # (Manual) APTT POC ABG pCO2 Sodium Chloride Carbon Dioxide BUN Creatinine Glucose 761 H* POC Glucose > 500 H > 500 H Hemoglobin A1c Calcium Alkaline Phosphatase NT-Pro-B Natriuret Pep Albumin 07/24/18 07/24/18 07/24/18 04:27 05:18 05:28 WBC RBC Hgb Hct RDW Seg Neuts % (Manual) Lymphocytes % (Manual) Seg Neutrophils # Man Lymphocytes # (Manual) Basophils # (Manual) APTT POC ABG pCO2 Sodium 134 L 136 L Chloride Carbon Dioxide 20 L 18 L BUN 41 H 41 H Creatinine 1.9 H 1.9 H Glucose 614 H* 548 H* POC Glucose > 500 H Hemoglobin A1c Calcium Alkaline Phosphatase NT-Pro-B Natriuret Pep Albumin 07/24/18 07/24/18 07/24/18 06:41 07:08 08:06 WBC RBC Hgb Hct RDW Seg Neuts % (Manual) Lymphocytes % (Manual) Seg Neutrophils # Man Lymphocytes # (Manual) Basophils # (Manual) APTT POC ABG pCO2 Sodium Chloride Carbon Dioxide 19 L BUN 41 H Creatinine 2.0 H Glucose 320 H POC Glucose 409 H 227 H Hemoglobin A1c Calcium 8.3 L Alkaline Phosphatase NT-Pro-B Natriuret Pep Albumin 07/24/18 07/24/18 07/24/18 09:37 10:26 11:01 WBC RBC Hgb Hct RDW Seg Neuts % (Manual) Lymphocytes % (Manual) Seg Neutrophils # Man Lymphocytes # (Manual) Basophils # (Manual) APTT POC ABG pCO2 Sodium Chloride Carbon Dioxide 20 L BUN 43 H Creatinine 1.9 H Glucose 199 H POC Glucose 144 H 237 H Hemoglobin A1c Calcium 8.3 L Alkaline Phosphatase NT-Pro-B Natriuret Pep Albumin 07/24/18 07/24/18 07/24/18 11:36 11:51 12:07 WBC RBC Hgb Hct RDW Seg Neuts % (Manual) Lymphocytes % (Manual) Seg Neutrophils # Man Lymphocytes # (Manual) Basophils # (Manual) APTT POC ABG pCO2 Sodium Chloride Carbon Dioxide BUN Creatinine Glucose POC Glucose 268 H 259 H 262 H Hemoglobin A1c Calcium Alkaline Phosphatase NT-Pro-B Natriuret Pep Albumin 07/24/18 07/24/18 07/24/18 12:59 13:16 13:59 WBC RBC Hgb Hct RDW Seg Neuts % (Manual) Lymphocytes % (Manual) Seg Neutrophils # Man Lymphocytes # (Manual) Basophils # (Manual) APTT POC ABG pCO2 Sodium 136 L Chloride Carbon Dioxide 19 L BUN 46 H Creatinine 2.0 H Glucose 337 H POC Glucose 359 H 380 H Hemoglobin A1c Calcium 8.1 L Alkaline Phosphatase NT-Pro-B Natriuret Pep Albumin 07/24/18 07/24/18 07/24/18 15:13 16:22 17:09 WBC RBC Hgb Hct RDW Seg Neuts % (Manual) Lymphocytes % (Manual) Seg Neutrophils # Man Lymphocytes # (Manual) Basophils # (Manual) APTT POC ABG pCO2 Sodium Chloride Carbon Dioxide BUN Creatinine Glucose POC Glucose 333 H 311 H 307 H Hemoglobin A1c Calcium Alkaline Phosphatase NT-Pro-B Natriuret Pep Albumin 07/24/18 07/24/18 07/24/18 18:01 19:26 19:39 WBC RBC Hgb Hct RDW Seg Neuts % (Manual) Lymphocytes % (Manual) Seg Neutrophils # Man Lymphocytes # (Manual) Basophils # (Manual) APTT POC ABG pCO2 Sodium Chloride Carbon Dioxide 19 L BUN 51 H Creatinine 2.0 H Glucose 337 H POC Glucose 320 H 353 H Hemoglobin A1c Calcium Alkaline Phosphatase NT-Pro-B Natriuret Pep Albumin 07/24/18 07/24/18 07/24/18 20:11 21:02 22:09 WBC RBC Hgb Hct RDW Seg Neuts % (Manual) Lymphocytes % (Manual) Seg Neutrophils # Man Lymphocytes # (Manual) Basophils # (Manual) APTT POC ABG pCO2 Sodium Chloride Carbon Dioxide BUN Creatinine Glucose POC Glucose 330 H 345 H 301 H Hemoglobin A1c Calcium Alkaline Phosphatase NT-Pro-B Natriuret Pep Albumin 07/24/18 07/25/18 07/25/18 23:13 00:08 01:12 WBC RBC Hgb Hct RDW Seg Neuts % (Manual) Lymphocytes % (Manual) Seg Neutrophils # Man Lymphocytes # (Manual) Basophils # (Manual) APTT POC ABG pCO2 Sodium Chloride 109.4 H Carbon Dioxide 18 L BUN 51 H Creatinine 1.9 H Glucose 309 H POC Glucose 257 H 192 H Hemoglobin A1c Calcium Alkaline Phosphatase NT-Pro-B Natriuret Pep Albumin 07/25/18 07/25/18 07/25/18 01:22 02:06 03:01 WBC RBC Hgb Hct RDW Seg Neuts % (Manual) Lymphocytes % (Manual) Seg Neutrophils # Man Lymphocytes # (Manual) Basophils # (Manual) APTT POC ABG pCO2 Sodium Chloride Carbon Dioxide BUN Creatinine Glucose POC Glucose 168 H 146 H 120 H Hemoglobin A1c Calcium Alkaline Phosphatase NT-Pro-B Natriuret Pep Albumin 07/25/18 07/25/18 07/25/18 04:11 04:14 05:13 WBC RBC Hgb Hct RDW Seg Neuts % (Manual) Lymphocytes % (Manual) Seg Neutrophils # Man Lymphocytes # (Manual) Basophils # (Manual) APTT POC ABG pCO2 Sodium Chloride Carbon Dioxide 21 L BUN 52 H Creatinine 1.8 H Glucose 121 H POC Glucose 121 H 136 H Hemoglobin A1c Calcium 8.2 L Alkaline Phosphatase NT-Pro-B Natriuret Pep Albumin 07/25/18 07/25/18 07/25/18 06:04 06:49 07:53 WBC RBC Hgb Hct RDW Seg Neuts % (Manual) Lymphocytes % (Manual) Seg Neutrophils # Man Lymphocytes # (Manual) Basophils # (Manual) APTT POC ABG pCO2 Sodium Chloride Carbon Dioxide BUN Creatinine Glucose POC Glucose 138 H 156 H 225 H Hemoglobin A1c Calcium Alkaline Phosphatase NT-Pro-B Natriuret Pep Albumin 07/25/18 07/25/18 07/25/18 09:38 11:29 16:55 WBC RBC Hgb Hct RDW Seg Neuts % (Manual) Lymphocytes % (Manual) Seg Neutrophils # Man Lymphocytes # (Manual) Basophils # (Manual) APTT POC ABG pCO2 Sodium Chloride Carbon Dioxide 20 L BUN 50 H Creatinine 1.8 H Glucose 266 H POC Glucose 334 H 478 H Hemoglobin A1c Calcium 8.1 L Alkaline Phosphatase NT-Pro-B Natriuret Pep Albumin 07/25/18 07/25/18 07/25/18 17:33 17:56 19:10 WBC RBC Hgb Hct RDW Seg Neuts % (Manual) Lymphocytes % (Manual) Seg Neutrophils # Man Lymphocytes # (Manual) Basophils # (Manual) APTT POC ABG pCO2 Sodium 136 L Chloride Carbon Dioxide 19 L 19 L BUN 56 H 55 H Creatinine 1.9 H 1.9 H Glucose 462 H 553 H* POC Glucose 462 H Hemoglobin A1c Calcium 8.1 L Alkaline Phosphatase NT-Pro-B Natriuret Pep Albumin 07/25/18 07/25/18 07/25/18 19:30 20:34 21:14 WBC RBC Hgb Hct RDW Seg Neuts % (Manual) Lymphocytes % (Manual) Seg Neutrophils # Man Lymphocytes # (Manual) Basophils # (Manual) APTT POC ABG pCO2 Sodium Chloride Carbon Dioxide BUN Creatinine Glucose POC Glucose > 500 H > 500 H 493 H Hemoglobin A1c Calcium Alkaline Phosphatase NT-Pro-B Natriuret Pep Albumin 07/25/18 07/25/18 07/25/18 22:00 22:09 23:02 WBC RBC Hgb Hct RDW Seg Neuts % (Manual) Lymphocytes % (Manual) Seg Neutrophils # Man Lymphocytes # (Manual) Basophils # (Manual) APTT POC ABG pCO2 Sodium Chloride Carbon Dioxide BUN Creatinine Glucose POC Glucose > 500 H 457 H 435 H Hemoglobin A1c Calcium Alkaline Phosphatase NT-Pro-B Natriuret Pep Albumin 07/25/18 07/26/18 07/26/18 23:15 00:09 00:54 WBC RBC Hgb Hct RDW Seg Neuts % (Manual) Lymphocytes % (Manual) Seg Neutrophils # Man Lymphocytes # (Manual) Basophils # (Manual) APTT POC ABG pCO2 Sodium Chloride Carbon Dioxide 21 L BUN 58 H Creatinine 1.9 H Glucose 393 H POC Glucose 317 H 288 H Hemoglobin A1c Calcium Alkaline Phosphatase NT-Pro-B Natriuret Pep Albumin 07/26/18 07/26/18 07/26/18 01:13 02:10 02:51 WBC RBC Hgb Hct RDW Seg Neuts % (Manual) Lymphocytes % (Manual) Seg Neutrophils # Man Lymphocytes # (Manual) Basophils # (Manual) APTT POC ABG pCO2 Sodium Chloride Carbon Dioxide 18 L BUN 58 H Creatinine 1.8 H Glucose 231 H POC Glucose 205 H 187 H Hemoglobin A1c Calcium Alkaline Phosphatase NT-Pro-B Natriuret Pep Albumin 07/26/18 07/26/18 07/26/18 04:11 05:02 06:17 WBC RBC Hgb Hct RDW Seg Neuts % (Manual) Lymphocytes % (Manual) Seg Neutrophils # Man Lymphocytes # (Manual) Basophils # (Manual) APTT POC ABG pCO2 Sodium Chloride Carbon Dioxide BUN Creatinine Glucose POC Glucose 253 H 166 H 150 H Hemoglobin A1c Calcium Alkaline Phosphatase NT-Pro-B Natriuret Pep Albumin 07/26/18 07/26/18 07/26/18 06:53 08:06 09:07 WBC RBC Hgb Hct RDW Seg Neuts % (Manual) Lymphocytes % (Manual) Seg Neutrophils # Man Lymphocytes # (Manual) Basophils # (Manual) APTT POC ABG pCO2 Sodium Chloride Carbon Dioxide BUN Creatinine Glucose POC Glucose 187 H 142 H 168 H Hemoglobin A1c Calcium Alkaline Phosphatase NT-Pro-B Natriuret Pep Albumin 07/26/18 07/26/18 07/26/18 09:42 12:08 16:08 WBC RBC Hgb Hct RDW Seg Neuts % (Manual) Lymphocytes % (Manual) Seg Neutrophils # Man Lymphocytes # (Manual) Basophils # (Manual) APTT POC ABG pCO2 Sodium Chloride Carbon Dioxide BUN 50 H Creatinine 1.7 H Glucose 153 H POC Glucose 206 H 196 H Hemoglobin A1c Calcium 7.6 L Alkaline Phosphatase NT-Pro-B Natriuret Pep Albumin 07/26/18 07/26/18 07/27/18 16:46 22:26 07:56 WBC RBC Hgb Hct RDW Seg Neuts % (Manual) Lymphocytes % (Manual) Seg Neutrophils # Man Lymphocytes # (Manual) Basophils # (Manual) APTT POC ABG pCO2 Sodium Chloride Carbon Dioxide BUN 54 H Creatinine 2.1 H Glucose 205 H POC Glucose 337 H 53 L Hemoglobin A1c Calcium 7.6 L Alkaline Phosphatase NT-Pro-B Natriuret Pep Albumin 07/27/18 07/27/18 07/27/18 11:36 16:10 21:22 WBC RBC Hgb Hct RDW Seg Neuts % (Manual) Lymphocytes % (Manual) Seg Neutrophils # Man Lymphocytes # (Manual) Basophils # (Manual) APTT POC ABG pCO2 Sodium Chloride Carbon Dioxide BUN Creatinine Glucose POC Glucose 151 H 191 H 321 H Hemoglobin A1c Calcium Alkaline Phosphatase NT-Pro-B Natriuret Pep Albumin 07/28/18 07/28/18 07/28/18 11:48 16:55 21:42 WBC RBC Hgb Hct RDW Seg Neuts % (Manual) Lymphocytes % (Manual) Seg Neutrophils # Man Lymphocytes # (Manual) Basophils # (Manual) APTT POC ABG pCO2 Sodium Chloride Carbon Dioxide BUN Creatinine Glucose POC Glucose 152 H 242 H 179 H Hemoglobin A1c Calcium Alkaline Phosphatase NT-Pro-B Natriuret Pep Albumin 07/29/18 07/29/18 07/29/18 11:40 16:43 22:33 WBC RBC Hgb Hct RDW Seg Neuts % (Manual) Lymphocytes % (Manual) Seg Neutrophils # Man Lymphocytes # (Manual) Basophils # (Manual) APTT POC ABG pCO2 Sodium Chloride Carbon Dioxide BUN Creatinine Glucose POC Glucose 204 H 171 H 153 H Hemoglobin A1c Calcium Alkaline Phosphatase NT-Pro-B Natriuret Pep Albumin 07/30/18 07/30/18 11:47 16:21 WBC RBC Hgb Hct RDW Seg Neuts % (Manual) Lymphocytes % (Manual) Seg Neutrophils # Man Lymphocytes # (Manual) Basophils # (Manual) APTT POC ABG pCO2 Sodium Chloride Carbon Dioxide BUN Creatinine Glucose POC Glucose 212 H 203 H Hemoglobin A1c Calcium Alkaline Phosphatase NT-Pro-B Natriuret Pep Albumin Allied health notes reviewed: RT
== END 2018-07-30 19:04 | disposition home health service (06) | DRG 291 ==
LOC: ED 17:39 → 4A 19:08 → CC1 07-24 04:32 → 2B-ACE 07-27 13:20
PROVIDERS: ADMIT Internal Medicine; ATTEND Internal Medicine
PROC: 5A09357 Assistance with Respiratory Ventilation, Less than 24 Consecutive Hours, Continuous Positive Airway Pressure (ICD-10-PCS; principal; 2018-07-22)
PROC: 4A033R1 Measurement of Arterial Saturation, Peripheral, Percutaneous Approach (ICD-10-PCS; 2018-07-22)
PROC: 5A09357 Assistance with Respiratory Ventilation, Less than 24 Consecutive Hours, Continuous Positive Airway Pressure (ICD-10-PCS; 2018-07-23)
PROC: 5A09357 Assistance with Respiratory Ventilation, Less than 24 Consecutive Hours, Continuous Positive Airway Pressure (ICD-10-PCS; 2018-07-24)
PROC: 5A09357 Assistance with Respiratory Ventilation, Less than 24 Consecutive Hours, Continuous Positive Airway Pressure (ICD-10-PCS; 2018-07-25)
PROC: 5A09357 Assistance with Respiratory Ventilation, Less than 24 Consecutive Hours, Continuous Positive Airway Pressure (ICD-10-PCS; 2018-07-26)
PROC: 5A09357 Assistance with Respiratory Ventilation, Less than 24 Consecutive Hours, Continuous Positive Airway Pressure (ICD-10-PCS; 2018-07-27)
PROC: 5A09357 Assistance with Respiratory Ventilation, Less than 24 Consecutive Hours, Continuous Positive Airway Pressure (ICD-10-PCS; 2018-07-28)
PROC: 5A09357 Assistance with Respiratory Ventilation, Less than 24 Consecutive Hours, Continuous Positive Airway Pressure (ICD-10-PCS; 2018-07-29)
DX: I11.0 Hypertensive heart disease with heart failure (principal); E11.10 Type 2 diabetes mellitus with ketoacidosis without coma; J18.9 Pneumonia, unspecified organism; J96.01 Acute respiratory failure with hypoxia; N17.9 Acute kidney failure, unspecified; J44.1 Chronic obstructive pulmonary disease with (acute) exacerbation; Z68.45 Body mass index [BMI] 70 or greater, adult; J45.901 Unspecified asthma with (acute) exacerbation; J44.0 Chronic obstructive pulmonary disease with (acute) lower respiratory infection; K21.9 Gastro-esophageal reflux disease without esophagitis; M19.90 Unspecified osteoarthritis, unspecified site; E78.2 Mixed hyperlipidemia; I50.9 Heart failure, unspecified; E11.42 Type 2 diabetes mellitus with diabetic polyneuropathy; E66.01 Morbid (severe) obesity due to excess calories; G47.30 Sleep apnea, unspecified; E78.00 Pure hypercholesterolemia, unspecified; Z98.49 Cataract extraction status, unspecified eye; Z87.891 Personal history of nicotine dependence; Z82.49 Family history of ischemic heart disease and other diseases of the circulatory system; Z88.2 Allergy status to sulfonamides; Z88.0 Allergy status to penicillin; Z79.899 Other long term (current) drug therapy; Z79.51 Long term (current) use of inhaled steroids; Z79.4 Long term (current) use of insulin
CPT/HCPCS: 36415; 71045; 80048; 80053; 82140; 82803; 82947; 82962; 83036; 83735; 83880; 84100; 84484; 85007; 85025; 85610; 85730; 87040; 93005; 93010; 94640; 94660; 94760; G0378; A9270-GY; J1644; J1815; J1940; J1956; J2930; J7030; J7040